=== PATIENT | male | born 1970 | race Caucasian/White ===

== ENCOUNTER 2023-02-05 12:47 | Outpatient (AMB) | payer OTHER, SELFPAY ==
--- NOTE | 2023-02-05 13:02 | MHC.PC.OV ---
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 Patient reports his last A1C was about 4 months ago. Patient confirms his last colonoscopy was in 2016 and his last prostate exam scheduled for 04/2023 and PSA was in 05/2022. 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 Sheri Grey Last office visit/CPE: 1 yr Acute issue(s): Diabetes -A1c today 02/05/23 is 7.6%. He is on Ozempic. -Sees Endocrinology [facility]. Sees him again in a couple months. -Has been on metformin/glipizide before. Has also trialed Trulicity - he notes he had the same amount of control with Trulicity. Quantitative Researcher had been prescribing him testosterone Had been on rosuvastatin before for his lipids. R knee pain & Hx of ACL tear in high school PMHx: HLD, DM2 SurgHx: R knee arthoscopy, GB FHx: Mom: Thyroid disorder Dad: CAD, HTN, DM, HLD. GF: Bladder CA SocHx: Nonsmoker. EtOH None. No other drugs PFSH Medical History (Updated 02/05/23 @ 13:45 by Hector Cameron) Arthritis Diabetes Palpitations Sinusitis Surgical History (Updated 02/05/23 @ 13:20 by Siri Norton) History of cholecystectomy History of knee surgery Family History (Updated 02/05/23 @ 13:25 by Siri Norton) Mother Hypertension Thyroid condition Father Hypertension High cholesterol Cardiovascular disease Maternal Grandmother Hypertension Paternal Grandmother Hypertension High cholesterol Cardiovascular disease Cancer Alcoholism Maternal Grandfather Hypertension Paternal Grandfather Hypertension High cholesterol Cardiovascular disease Social History Housing: House Alcohol intake: never Patient Tobacco Use Status: Never used Tobacco e-Cigarette/Vaping Use: Never Used service: No 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al status: employed 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: [employer] 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al exposures/hazards: Yes Cognitive needs: No Hearing needs: No Vision needs: No Questionnaire PHQ-9 Over the last 2 weeks, how often have you been bothered by any of the following problems? 1. Little interest or pleasure in doing things: not at all 2. Feeling down, depressed, or hopeless: not at all 3. Trouble falling or staying asleep, or sleeping too much: several days 4. Feeling tired or having little energy: not at all 5. Poor appetite or overeating: not at all 6. Feeling bad about yourself - or that you are a failure or have let yourself or your family down: not at all 7. Trouble concentrating on things, such as reading the newspaper or watching television: not at all 8. Moving or speaking so slowly that other people could have noticed. Or the opposite - being so fidgety or restless that you have been moving around a lot more than usual: not at all 9. Thoughts that you would be better off or of hurting yourself in some way: not at all Total score: 1 Depression Screening Interpretation: Negative 32776 - PHQ-9 Billing: Yes Source: Developed by Drs. Nain Euceda, Valencia Perez, Joao Vogt and colleagues, with an educational bridger from [employer]. Thrive Questionnaire Date Thrive assessed: 02/05/23 I am a: Patient What is your living situation today?: I have a steady place to live Within the past 12 months, did the food you bought not last and you didn't have the money to get more?: Never true Within the past 12 months, did you worry whether your food would run out before you got money to buy more?: Never true Do you have trouble paying for medicines?: No Do you have trouble getting transportation to medical appointments?: No Do you have trouble paying your heating and electricity bill?: No Do you have trouble taking care of your child, family member or friend?: No Do you have trouble with day-to-day activities such as bathing, preparing meals, shopping, managing finances, etc.?: No Are you currently unemployed and looking for a job?: No Are you interested in more education?: No Currently or been in a relationship where the following occur: no concerns reported AUDIT C Alcohol Use Questionnaire (AUDIT-C) 1. How often do you have a drink containing alcohol?: Never 3. How often do you have six or more drinks on one occasion?: Never Total Score: 0 IVY-7 AMB Questionnaire IVY-7 Date IVY - 7 assessed: 02/05/23 Feeling nervous, anxious, or on edge: 0 = Not at all Not being able to stop or control worryin = Not at all Worrying too much about different things: 0 = Not at all Trouble relaxin = Not at all Being so restless that it is hard to sit still: 0 = Not at all Becoming easily annoyed or irritable: 0 = Not at all Feeling afraid as if something awful might happen: 0 = Not at all Total IVY-7 score (0-4 normal; 5-9 mild; 10-14 moderate; 15-21 severe): 0 Source: Developed by Drs. Nain Euceda, Valencia Perez, Joao Vogt and colleagues, with an educational bridger from [employer]. IVY-7 Assessment Billing IVY-7 Assessment Tool: IVY-7 Assessment 38524 Review of Systems Const Denies chills, Denies fatigue, Denies fever(s), Denies headache(s) and Denies weakness ENT Denies dizziness and Denies headache(s) Card Denies chest pain, Denies lightheadedness, Denies dyspnea and Denies other (Palpitations) Resp Denies cough, Denies dyspnea, Denies wheezing and Denies other ( shortness of breath) Musc Details: R knee pain Denies numbness and Denies tingling Neuro Denies dizziness, Denies headache(s), Denies numbness, Denies tingling, Denies paresthesias and Denies weakness Psych Denies anxiety and Denies depression Endo Denies fatigue Aller/Immun Denies wheezing Physical exam (Primary Care) Vital Signs: Last Vital Signs Temp 97.8 F 02/05/23 13:03 Pulse 65 02/05/23 13:03 Resp 15 02/05/23 13:03 BP 102/60 02/05/23 13:03 Pulse Ox 98 02/05/23 13:03 Oxygen Delivery Method Room Air 02/05/23 13:03 BMI result Body Mass Index 31.7 Tobacco/Smoking Status: Tobacco use Status Tobacco use date assessed 02/05/23 02/05/23 13:13 Patient Tobacco Use Status Never used Tobacco 02/05/23 13:26 e-Cigarette/Vaping Use Never Used 02/05/23 13:26 PHQ-9: PHQ-9 Score PHQ-9: Total score 1 02/05/23 13:28 Depression Screening Interpretation: Negative Thrive Assessment: Date of Thrive Assessment Date Thrive assessed 02/05/23 02/05/23 13:14 Currently or been in a relationship where the following occur: no concerns reported Const General: no acute distress and well developed Nutritional Appearance: well nourished Orientation/consciousness: patient oriented x3 HENMT Head: Yes normocephalic and Yes atraumatic Eyes General: appearance normal, both eyes and all related structures Pupils: Equal, round and reactive pupils present EOM: EOMs intact bilaterally Resp Effort & Inspection: normal respiratory effort Auscultation: clear to auscultation bilaterally Cardio Rate: regular rate Rhythm: regular rhythm Heart sounds: S1 normal heart sound present, S2 normal heart sound present, no gallops, no murmurs and no rubs Neuro General: patient oriented x3 and gait normal Cranial nerves: Yes Equal, round and reactive pupils present Psych Affect: normal affect Results AMB Hemoglobin A1c AMB Hemoglobin A1c 7.6 % Last Edit by Siri Norton on 02/05/23 13:24 Results Reviewed Results Reviewed: Laboratory Last Values Hgb A1c (Clinic) 7.6 % (4.0-6.0) H 02/05/23 13:23 Assessment and Plan Assessment & Plan (1) Diabetes: Code(s): E11.9 - Type 2 diabetes mellitus without complications Plan: A1c today 7.6% which is poor control. Goal is less than 7.0%. He seems to have sensitivity to many medications. Has tolerated glipizide in the past. He is followed by endocrinology and has an appointment in the next couple of months. Will restart glipizide ER at 5 mg daily and he will continue Ozempic as prescribed by his rayon tester. He can follow-up with endocrinology to adjust his regimen as needed. (2) Low testosterone: Code(s): R79.89 - Other specified abnormal findings of blood chemistry Plan: He is on testosterone replacement therapy by endocrinology Check testosterone level (3) Right knee pain: Code(s): M25.561 - Pain in right knee Plan: Right knee pain which is likely mild tendinopathy. He can use ibuprofen, ice/heat and relative rest If not improving will image and start physical therapy (4) Laboratory exam ordered as part of routine general medical examination: Code(s): Z00.00 - Encounter for general adult medical examination without abnormal findings Plan: Check labs Orders: Orders Comprehensive [place]. Panel Fast Today Z00.00 - Encounter for general adult medical examination without abnormal findings Microalbumin, Random (w Creat) Today I10 - Essential (primary) hypertension Prostate Specific Antigen Scr Today Z12.5 - Encounter for screening for malignant neoplasm of prostate Lipid Panel Today Z00.00 - Encounter for general adult medical examination without abnormal findings TSH reflex Free T4 Today Z00.00 - Encounter for general adult medical examination without abnormal findings UA and rflx microscopic Today Z00.00 - Encounter for general adult medical examination without abnormal findings Medications: New glipizide ER 5 mg PO DAILY 30 days 30 tabs 2RF testosterone cypionate 50 mg (0.5 mL) IM QWEEK 28 days 2 mL 0RF Coding Level of Care Code New Pt Level 4 (34209) Diagnoses Diabetes E11.9 Low testosterone R79.89 Right knee pain M25.561 Laboratory exam ordered as part of routine general medical examination Z00.00 Additional Codes IYV-7 Assessment Billing - IVY-7 Assessment Tool: IVY-7 Assessment 65639 ([id number])
[2023-02-05 13:03] VITALS: BP 102/60; PULSE 65; RESP 15; TEMP 36.6; O2SAT 98; BMI 31.7
== END 2023-02-05 13:54 | disposition home or self-care (01) ==
PROVIDERS: Visit Provider Family Medicine
DX: E11.9 Type 2 diabetes mellitus without complications (principal); R79.89 Other specified abnormal findings of blood chemistry; M25.561 Pain in right knee; Z00.00 Encounter for general adult medical examination without abnormal findings
CPT/HCPCS: 99204

== ENCOUNTER 2023-02-19 09:15 | Outpatient (REF) | payer OTHER, SELFPAY ==
[2023-02-19 11:13] LABS: MANUAL DIFF FLAG NO
[2023-02-19 11:30] LABS: Appearance Urine Clear; Color Urine Yellow; Glucose Urine UA Negative (Negative); Leukocyte Esterase Urine Negative (Negative); Nitrite Urine Negative (Negative); Specific Gravity - Urine <= 1.005 (1.005-1.025); Urine Blood Negative (Negative); Urine Ketones Negative (Negative); Urine Protein Negative (Neg-Trace)
[2023-02-19 11:35] LABS: Basophils Absolute Auto 0.1 X10*3/uL (0.0-0.2); Basophils Percent Auto 1.5 % (0-2); Eosinophils Absolute Auto 0.2 X10*3/uL (0.0-0.4); Eosinophils Percent Auto 2.7 % (0-4); Hematocrit 50.2 % (42.0-52.0); Hemoglobin 16.5 g/dl (14.0-18.0); Imm Gran Abs Auto 0.02 X10*3/uL (0.00-0.03); Imm Gran Pct Auto 0.3 % (0.0-0.4); Lymphocytes Percent Auto 25.5 % (20-40); Mean Corpuscular HGB Conc 32.9 g/dl (31.0-36.0); Mean Corpuscular Hemoglobin 28.2 pg (27.0-33.0); Mean Corpuscular Volume 85.8 fL (80.0-98.0); Mean Platelet Volume 11.4 fL (9.4-12.4); Monocytes Absolute Auto 0.7 X10*3/uL (0.1-1.2); Monocytes Percent Auto 8.5 % (2-11); Neutrophils Absolute Auto 4.9 x10*3/uL (2.0-8.3); Neutrophils Percent Auto 61.5 % (45-73); Platelet Count 245 X10*3/uL (160-400); Red Blood Count 5.85 X10*6/uL (4.60-5.80); Red Cell Distribution Width 13.4 % (11.0-16.0); White Blood Count 7.9 X10*3/uL (4.8-10.8)
[2023-02-19 12:07] LABS: Creatinine Urine 31.39 mg/dL; Microalbumin Urine < 5.0 mg/L
[2023-02-19 12:22] LABS: Alanine Aminotransferase 23 U/L (0-40); Alkaline Phosphatase 88 U/L (39-117); Anion Gap 10 (12-20); Aspartate Amino Transferase 19 U/L (5-37); Bilirubin Total 0.5 mg/dL (0.0-1.0); Blood Urea Nitrogen 19 mg/dL (9-16); Calcium 8.7 mg/dL (8.4-10.2); Carbon Dioxide 27 mmol/L (22-29); Chloride 107 mmol/L (96-108); Cholesterol 141 mg/dL (<200); Estimated Glomerular Filt Rate > 60; Glucose Fasting 131 mg/dL (60-99); HDL Cholesterol 44 mg/dL (>40); LDL Cholesterol Calculated 87 mg/dL (<100); Sodium 140 mmol/L (135-145); TSH reflex Free T4 1.25 uIU/mL (0.32-4.0); Total Protein 6.7 g/dL (6.5-8.0); Triglycerides 52 mg/dL (<150)
[2023-02-19 12:25] LABS: Prostate Specific Antigen Scr 0.63 ng/mL (<0.05-4.0)
[2023-02-24 13:54] LABS: Testosterone, Free 93.2 pg/mL (35.0-155.0); Testosterone, Total 483 ng/dL (250-1100)
== END 2023-02-19 09:16 | disposition home or self-care (01) ==
LOC: HO.WFDLDS 09:15
PROVIDERS: Visit Provider Family Medicine
DX: Z00.00 Encounter for general adult medical examination without abnormal findings (principal); I10 Essential (primary) hypertension; R79.89 Other specified abnormal findings of blood chemistry; Z12.5 Encounter for screening for malignant neoplasm of prostate
CPT/HCPCS: 36415; 80053; 80061; 81003; 82043; 82570; 84153; 84402; 84403; 84443; 85025

== ENCOUNTER 2023-02-25 13:36 | Outpatient (REF) | payer OTHER, SELFPAY ==
--- NOTE | ~2023-02-25 | XR_ITS ---
EXAMINATION: XR KNEE, RIGHT CLINICAL INFORMATION: Pain. COMPARISON: None available. TECHNIQUE: AP, lateral and sunrise views of the right knee are submitted. FINDINGS: No fracture or joint effusion. Alignment is anatomic. Joint spaces are maintained. No abnormal soft tissue calcification. XR/XR knee RT 3V IMPRESSION: Normal right knee.
== END 2023-02-25 13:37 | disposition home or self-care (01) ==
LOC: HO.HOSX 13:36
PROVIDERS: Visit Provider Orthopaedic Surgery
DX: M25.561 Pain in right knee (principal)
CPT/HCPCS: 20610; 73562; J3301

== ENCOUNTER 2023-02-25 13:37 | Outpatient (AMB) | payer OTHER, SELFPAY ==
--- NOTE | 2023-02-25 13:59 | MHC.OFFVIS ---
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 Pt states he has had knee pain for a while but states within the past 2 weeks it has gotten worse. Pt states he has tried ice,heat,ibuprofen,and tylenol with some relief. Pt states the ice is most helpful. Pt states he had a partial tear of his ACL and had surgery in 1985 but was told that it already healed itself prior to the surgery. Pt denies any previous knee injections. Patient states that his right knee will give out several times per day. He has done physical therapy which aggravated his pain. Allergies No Known Allergies Allergy (Verified 02/25/23 14:01) [facility] Medical History Arthritis Diabetes Palpitations Sinusitis Surgical History History of cholecystectomy History of knee surgery Family History Mother Hypertension Thyroid condition Father Hypertension High cholesterol Cardiovascular disease Maternal Grandmother Hypertension Paternal Grandmother Hypertension High cholesterol Cardiovascular disease Cancer Alcoholism Maternal Grandfather Hypertension Paternal Grandfather Hypertension High cholesterol Cardiovascular disease Social History Housing: House Alcohol intake: never Patient Tobacco Use Status: Never used Tobacco e-Cigarette/Vaping Use: Never Used service: No 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al status: employed 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: [employer] 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al exposures/hazards: Yes Cognitive needs: No Hearing needs: No Vision needs: No Physical Exam Const Other: Well-nourished well-developed very friendly male awake alert and oriented x3 in no acute distress Extrem Other: Bilateral lower extremity examination shows good capillary refill, no skin lesions noted, normal sensation light touch Right knee examination shows a minimal effusion, mild crepitus with range of motion, tenderness along his medial joint line, positive Enedina's test, no instability Office Procedures Joint Injection/Drain Joint Injection/Drain Primary Site: right knee Prep: site was prepped using aseptic technique Injected: 40 mg of, Kenalog and 1% plain lidocaine Procedure: The patient tolerated the procedure well Coding 65139 - Large joint Procedure code (CPT) selection complete Results Reviewed Results Reviewed: 02/25/23 14:18 Lidocaine HCl 2 % MPF [Xylocaine 2 % MPF] 5 ml .ROUTE .STK-MED ONE 02/25/23 14:19 Triamcinolone Acetonide [Kenalog-40] 40 mg .ROUTE .STK-MED ONE X-rays of the patient's right knee show mild diffuse joint space narrowing, no acute bony abnormalities Assessment & Plan Assessment & Plan (1) Right knee pain: Code(s): M25.561 - Pain in right knee Plan: Mr. Perez presents with right knee pain and mechanical symptoms due to early degenerative joint disease as well as possible tearing of his medial meniscus. I had a lengthy discussion with the patient regarding the treatment options. The risks and benefits of a cortisone injection were discussed at length with the patient. The patient wished to proceed. He tolerated the injection well. Activity modifications were also discussed at length with the patient. I will also send the patient for an MRI of his right knee to further evaluate the status of his medial meniscus. I will see him back once the MRI is completed to discuss the findings and treatment options. Feel free to call me at any time should questions regarding his orthopedic management arise. Thank you very much for asking me to see this very friendly gentleman. I spent 22 minutes in reviewing the patient's records and imaging studies, seeing the patient and documenting in the medical record. Orders: Orders MR knee RT wo con Today S83.241A - Other tear of medial meniscus, current injury, right knee, initial encounter AMB Joint Injection/Aspiration Today M25.561 - Pain in right knee XR knee RT 3V Today M25.561 - Pain in right knee Coding Level of Care Code Est Pt Level 2 (36584) Diagnoses Right knee pain M25.561 CPT Codes Coding - 03177 Large joint: 72760 - Large joint ([id number])
== END 2023-02-25 14:31 | disposition home or self-care (01) ==
PROVIDERS: PCP Family Medicine; Visit Provider Orthopaedic Surgery
DX: M25.561 Pain in right knee (principal)
CPT/HCPCS: 20610; 99213

== ENCOUNTER 2023-04-21 14:12 | Outpatient (AMB) | payer OTHER, SELFPAY ==
--- NOTE | 2023-04-21 14:16 | MHC.OFFVIS ---
Intake Intake Visit Reasons: Pre-Rt Knee Intake Note: Benji is a 52-year-old male who presents with complaints of progressively worsening right knee pain and giving way. The patient describes his pain as sharp in nature. Most of the pain is along the medial aspect of his knee. The patient states that he underwent right knee surgery in 1985 after suffering a partial tear of his anterior cruciate ligament. The patient re-injured his knee approximately 1 year ago. He twisted his knee and had acute onset of pain. Since that time his symptoms of pain and instability have gotten progressively worse in spite of continued non operative treatments. He has had injections in the past which gave him minimal relief. He has also done physical therapy which aggravated his pain. The patient states that his right knee will give out several times per day. He has tried Tylenol and anti-inflammatory medicines which gave him minimal relief. Allergies No Known Allergies Allergy (Verified 04/21/23 14:17) Medication List - Last Reconciled 04/21/23 by Zia Haynes MD fluticasone propionate 50 mcg/actuation (Flonase Allergy Relief) 2 sprays intranasal QDAY glipizide ER 5 mg PO DAILY 30 days needle (disp) 25 gauge (BD PrecisionGlide) As directed semaglutide (Ozempic) mg subcut tamsulosin 0.4 mg PO DAILY testosterone cypionate 50 mg (0.5 mL) IM QWEEK 28 days [facility] Medical History Arthritis Diabetes Palpitations Sinusitis Surgical History History of cholecystectomy History of knee surgery Family History Mother Hypertension Thyroid condition Father Hypertension High cholesterol Cardiovascular disease Maternal Grandmother Hypertension Paternal Grandmother Hypertension High cholesterol Cardiovascular disease Cancer Alcoholism Maternal Grandfather Hypertension Paternal Grandfather Hypertension High cholesterol Cardiovascular disease Housing: House Alcohol intake: never Patient Tobacco Use Status: Never used Tobacco e-Cigarette/Vaping Use: Never Used service: No 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al status: employed 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: [employer] 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al exposures/hazards: Yes Cognitive needs: No Hearing needs: No Vision needs: No Physical Exam Const Other: Well-nourished well-developed very friendly male awake alert and oriented x3 in no acute distress Lungs - clear to auscultation bilaterally with symmetric expansion Cardiovascular exam - regular rate and rhythm Abdominal exam - soft nontender nondistended Extrem Other: Bilateral lower extremity examination shows good capillary refill, no skin lesions noted, normal sensation light touch Right knee examination shows a minimal effusion, minimal crepitus with range of motion, tenderness along his medial joint line, positive Enedina's test, no instability Results Reviewed Results Reviewed: Standing full weight-bearing x-rays of the patient's right knee show grade 1 minimal diffuse joint space narrowing, no acute bony abnormalities MRI of the patient's right knee shows mild diffuse degenerative changes as well as a tear of his medial meniscus and possible tearing of the lateral meniscus Assessment & Plan Assessment & Plan (1) Tear of medial meniscus of right knee: Code(s): S83.241A - Other tear of medial meniscus, current injury, right knee, initial encounter Plan Mr. Perez presents with progressively worsening right knee pain and mechanical symptoms due to a tear of his medial meniscus and possible tearing of his lateral meniscus. I had a lengthy discussion with the patient regarding the treatment options. At this point he has failed continued non operative treatments. The risks and benefits of right knee arthroscopic surgery were discussed at length with the patient. The patient wishes to proceed with surgery. He does understand he may not get 100% relief of his symptoms depending on the severity of his degenerative changes. The patient was given a prescription for Percocet at his preoperative appointment. I also had him fitted with a knee brace to help with his symptoms of instability. I feel that the knee brace is a medical necessity to help prevent future falls. The patient will follow-up as instructed. Feel free to call me at any time should questions regarding his orthopedic management arise. I spent 22 minutes in reviewing the patient's records and imaging studies, seeing the patient and documenting in the medical record. Medications: New oxycodone-acetaminophen 5-325 mg (Percocet) Partial Fill upon patient request. 1 tab PO Q6H PRN 20 tabs 0RF pain Coding Level of Care Code Est Pt Level 2 (35377) Diagnoses Tear of medial meniscus of right knee S83.241A
== END 2023-04-21 14:48 | disposition home or self-care (01) ==
PROVIDERS: PCP Family Medicine; Visit Provider Orthopaedic Surgery
DX: S83.241A Other tear of medial meniscus, current injury, right knee, initial encounter (principal)
CPT/HCPCS: 99212

== ENCOUNTER → 2023-04-21 14:12 | Outpatient (BNVA) | payer OTHER, SELFPAY | PROVIDERS: PCP Family Medicine; Visit Provider Orthopaedic Surgery ==

== ENCOUNTER 2023-04-30 07:54 | Day surgery (SDC) | payer OTHER, SELFPAY ==
[2023-04-28 07:53] VITALS: BMI 31.7
--- NOTE | 2023-04-29 09:04 | HO.ANESPROP2 ---
Documented by User: Marah Walls NP 04/29/23 09:05 HPI - Anesthesia Eval Consult details Narrative: 52yo M for Knee Arthroscopy Anesthesia Pre-Procedure Meds Is the patient on any of the following meds?: Semaglutide (Ozempic) PMFSH Active Problems Active Problems: All Active Problems (Updated 02/25/23 @ 14:34 by Zia Haynes MD) Tear of medial meniscus of right knee (Acute) Right knee pain (Acute) Low testosterone (Acute) Laboratory exam ordered as part of routine general medical examination (Acute) Diabetes (Acute) Past Medical History Medical History (Updated 04/30/23 @ 08:15 by Megan Bill) Arthritis Diabetes Palpitations Sinusitis Family History Family History Mother Hypertension Thyroid condition Father Hypertension High cholesterol Cardiovascular disease Maternal Grandmother Hypertension Paternal Grandmother Hypertension High cholesterol Cardiovascular disease Cancer Alcoholism Maternal Grandfather Hypertension Paternal Grandfather Hypertension High cholesterol Cardiovascular disease Surgical History Surgical History (Updated 04/30/23 @ 08:15 by Megan Bill) History of cholecystectomy History of knee surgery Social History Social History Housing: House Alcohol intake: never Patient Tobacco Use Status: Never used Tobacco e-Cigarette/Vaping Use: Never Used Advance Directives: No Advance Directives Information Provided: Yes service: No 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al status: employed 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: [employer] 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al exposures/hazards: Yes Cognitive needs: No Hearing needs: No Vision needs: No Meds Allergies Allergy/AdvReac Type Severity Reaction Status Date / Time No Known Allergies Allergy Verified 04/30/23 08:16 Active Medications: Current Medications Cefazolin Sodium/Dextrose (Ancef) 2 gm in 50 mls @ 100 mls/hr IV PREOP ONE Stop: 04/30/23 05:19 Home Medications Medication Instructions Recorded Confirmed Last Taken Type fluticasone propionate 50 2 spray intranasal QDAY 02/05/23 04/21/23 Unknown History mcg/actuation nasal spray,suspension (Flonase Allergy Relief) needle (disp) 25 gauge 25 gauge x #1,000 ea 02/05/23 04/21/23 Unknown History 1 (BD PrecisionGlide) semaglutide 0.25 mg or 0.5 mg (2 mg subcut 02/05/23 04/21/23 Unknown History mg/3 mL) subcutaneous pen injector (Ozempic) tamsulosin 0.4 mg capsule 0.4 mg PO DAILY 02/05/23 04/21/23 Unknown History Maegan 04/30/23 Unknown History Pepcid 04/30/23 04/30/23 Unknown History Exam Height,Weight and Vital Signs: Height 5 ft 11 in Weight 102.965 kg Pertinent Lab Results Pertinent Lab Results: Laboratory Tests 02/19/23 09:18 WBC 7.9 Hgb 16.5 Hct 50.2 Plt Count 245 Sodium 140 Potassium 4.0 Chloride 107 Carbon Dioxide 27 BUN 19 H Creatinine 1.00 Assessment and Plan Assessment Anesthesia Assessment: Chart Reviewed Documented by User: Taj Raya MD 04/30/23 08:18 HPI - Anesthesia Eval Anesthesia Pre-Procedure Meds If Yes to any meds - educate patient: Pt education - possibility of cancelled proc at provider's discretion PMFSH Past Medical History Medical History (Updated 04/30/23 @ 08:15 by Megan Bill) Arthritis Diabetes Palpitations Sinusitis Family History Family History Mother Hypertension Thyroid condition Father Hypertension High cholesterol Cardiovascular disease Maternal Grandmother Hypertension Paternal Grandmother Hypertension High cholesterol Cardiovascular disease Cancer Alcoholism Maternal Grandfather Hypertension Paternal Grandfather Hypertension High cholesterol Cardiovascular disease Family history of problems with anesthesia: No Surgical History Surgical History (Updated 04/30/23 @ 08:15 by Megan Bill) History of cholecystectomy History of knee surgery History of Problems with Anesthesia: No Social History Social History Housing: House Alcohol intake: never Patient Tobacco Use Status: Never used Tobacco e-Cigarette/Vaping Use: Never Used Advance Directives: No Advance Directives Information Provided: Yes service: No 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al status: employed 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: [employer] 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al exposures/hazards: Yes Cognitive needs: No Hearing needs: No Vision needs: No Meds Allergies Allergy/AdvReac Type Severity Reaction Status Date / Time No Known Allergies Allergy Verified 04/30/23 08:16 Home Medications Medication Instructions Recorded Confirmed Last Taken Type fluticasone propionate 50 2 spray intranasal QDAY 02/05/23 04/21/23 Unknown History mcg/actuation nasal spray,suspension (Flonase Allergy Relief) needle (disp) 25 gauge 25 gauge x #1,000 ea 02/05/23 04/21/23 Unknown History 1 (BD PrecisionGlide) semaglutide 0.25 mg or 0.5 mg (2 mg subcut 02/05/23 04/21/23 Unknown History mg/3 mL) subcutaneous pen injector (Ozempic) tamsulosin 0.4 mg capsule 0.4 mg PO DAILY 02/05/23 04/21/23 Unknown History Maegan 04/30/23 Unknown History Pepcid 04/30/23 04/30/23 Unknown History Exam Airway Mallampati Class: II TM Dist: >3cm Neck ROM: Limited Heart: rrr Lungs: cta Assessment and Plan Assessment Anesthesia Assessment: Anesthesia Plan Discussed Final Anesthetic Review Family History of Problems with Anesthesia: No History of Problems with Anesthesia: No NPO: Yes ASA Class: III Final Preanesthetic Review: No Changes in Pt Med Stat, Meds/Allgs Chart Reviewed, Consent Obtained/Reviewed and Anes Risks/Benef Reviewed Patient Risk: Intermediate Procedure Risk: Intermediate Anesthetic Plan Anesthetic Plan: GA Disposition: Standard PACU
[2023-04-30] VITALS (9 sets, daily range): BP systolic 97–118; BP diastolic 63–88; PULSE 68–86; RESP 16–18; TEMP 36.2–36.9; O2SAT 94–97; BMI 32.6
[2023-04-30 08:29] LABS: Glucose, Whole Blood 182 mg/dL (60-115)
[2023-04-30] MEDS: Lactated Ringers 1,000 ML 100 ML IVCONT (08:51)
--- NOTE | 2023-04-30 10:28 | P.BOP_ITS ---
Brief Operative Note Date of Service: 04/30/23 Pre-op diagnosis: Left knee medial meniscus tear, left knee lateral meniscus tear, left knee degenerative joint disease Post-op diagnosis: same Procedure: Left knee diagnostic arthroscopy with left knee arthroscopic partial medial and lateral meniscectomies, left knee arthroscopic chondroplasty of the undersurface of the patella, left knee arthroscopic plica excision Implants: none Surgeon: Zia Haynes MD Anesthesia: GLMA Was an Opinion Polls Survey Worker used for this Procedure?: No Estimated blood loss (mL): 10 Pathology: none sent Condition: stable Disposition: PACU
--- NOTE | 2023-04-30 10:30 | P.OP_ITS ---
Operative Note Operative Note Date of Service: 04/30/23 Narrative: After the patient was identified as Benji Perez and their right knee was initialed by myself they were brought to the operating room where general anesthesia was induced by the anesthesiologist in routine fashion. The patient was given 2 g of IV Ancef for infection prophylaxis. A formal time-out was completed. The patient's right lower extremity was prepped and draped in sterile fashion. Marcaine with epinephrine was injected into the planned incision sites as well as their left knee joint. A # 11 scalpel blade was used to make an anterolateral portal 1 cm proximal to the joint line and 1 cm lateral to the patellar tendon. Blunt trocar technique was used into the suprapatellar pouch with the knee in extension. Diagnostic arthroscopy showed multiple bands of thickened plica which would be excised at the end of the procedure. There were no loose bodies or abnormalities found in either the medial or lateral gutters. There were diffuse grades 1 and 2 degenerative changes of the undersurface of the patella as well as grade 1 degenerative changes of the trochlear groove. The patient's knee was flexed to 45 degrees and a valgus force was placed upon it. The medial compartment was entered. An anteromedial portal was made 1 cm proximal to the joint line and 1 cm medial to the patellar tendon. Probing of the medial meniscus showed a radial tear of the anterior horn. A partial medial meniscectomy was performed using the arthroscopic shaver. Following the partial meniscectomy the remainder of the meniscus tissue was stable. There were diffuse grade 1 degenerative changes of the medial fe moral condyle as well as diffuse grade 1 degenerative changes of the medial tibial plateau. The patient's knee was then placed into a neutral position. There was no injury to the anterior cruciate ligament. The patient's knee was then placed into the figure of 4 position and the lateral compartment was entered. There were minimal degenerative changes of the lateral femoral condyle and lateral tibial plateau. There was a radial tear anterior horn lateral meniscus. Thus, a partial lateral meniscectomy was performed using the arthroscopic shaver. Following the partial meniscectomy the remainder of the meniscus tissue was stable. The patient's knee was once again brought into extension and the suprapatellar pouch was entered. The arthroscopic shaver and the ArthroCare Wand were used to excise the thickened bands of plica. The undersurface of the patella was then made smooth using the arthroscopic shaver. The articular surface of the trochlear groove was already smooth so no vidhi droplasty was indicated. The knee joint was irrigated and then drained. All arthroscopic instruments were removed. The 2 portals were closed with 3-0 nylon interrupted suture. The knee joint was injected with Marcaine. Dry sterile dressing and Dusty bandages were placed over the patient's knee. The patient was woken and expand the operating room. They were transferred to the recovery room in stable condition.
[2023-04-30] MEDS: cefTRIAXone sodium 1 GM in 0.9 % Sodium Chloride 50 ML IV (10:52)
== END 2023-04-30 12:10 | disposition home or self-care (01) ==
PROVIDERS: PCP Family Medicine; Visit Provider Orthopaedic Surgery
PROC: (CPT 29870; principal; 2023-04-30 09:40)
DX: S83.241A Other tear of medial meniscus, current injury, right knee, initial encounter (principal); S83.281A Other tear of lateral meniscus, current injury, right knee, initial encounter; M25.361 Other instability, right knee; M67.51 Plica syndrome, right knee; M17.11 Unilateral primary osteoarthritis, right knee; X50.1XXA Overexertion from prolonged static or awkward postures, initial encounter; Y93.9 Activity, unspecified; Y92.9 Unspecified place or not applicable; Y99.8 Other external cause status; E11.9 Type 2 diabetes mellitus without complications; R00.2 Palpitations; J32.9 Chronic sinusitis, unspecified; Z79.51 Long term (current) use of inhaled steroids; Z79.84 Long term (current) use of oral hypoglycemic drugs; Z79.85 Long-term (current) use of injectable non-insulin antidiabetic drugs; Z79.899 Other long term (current) drug therapy
CPT/HCPCS: 29880; 82947; J0131; J0171; J0690; J0696; J2704; J2795

== ENCOUNTER → 2023-04-30 07:54 | Outpatient (BNV) | payer OTHER, SELFPAY | PROVIDERS: PCP Family Medicine; Visit Provider Orthopaedic Surgery | DX: S83.232A Complex tear of medial meniscus, current injury, left knee, initial encounter (principal); S83.272A Complex tear of lateral meniscus, current injury, left knee, initial encounter | CPT/HCPCS: 29880 ==

== ENCOUNTER 2023-05-14 08:53 | Outpatient (AMB) | payer OTHER, SELFPAY ==
--- NOTE | 2023-05-14 08:54 | A.OFFPC_ITS ---
Vital Signs 05/14/23 08:55 Height 5 ft 11 in Weight 234 lb 6 oz BMI 32.7 BP 118/76 Blood Pressure Location Rt brachial Position Sitting Respiration 13 Pulse 77 Temp 97.6 F Temp Source Temporal Artery Scan Pulse Oximetry (%) 97 Oxygen Delivery Method Room Air Intake Visit Reasons: CPE with f/u labs and health maint. Pegger Required: No Accompanied by: Self / Same As Patient Allergies No Known Allergies Allergy (Verified 05/14/23 09:00) Tobacco use date assessed: 02/05/23 Dental Screening Dental Screen Date: 05/14/23 Did you have a dental visit in the last 12 months?: Yes Did you have a dental problem in the last 6 months where you did not have access to dental care?: No Was dental information given to patient?: Patient has dentist HPI CPE with f/u labs and health maint. HPI Details 52 y/o male presents for a CPE with f/u labs and health maintenance. Labs were drawn 02/19/23. Reviewed labs with pt. Last A1c 02/05/23 7.6%. He is on semaglutide and glipizide 5mg. Triglycerides 52. TC 141. LDL 87. HDL 44. He notes he had an A1c done at [email or web address] a month ago and was 7.1%. He is followed by Endocrinology for his diabetes. [facility] Medical History Arthritis Diabetes Palpitations Sinusitis Surgical History History of cholecystectomy History of knee surgery Family History Mother Hypertension Thyroid condition Father Hypertension High cholesterol Cardiovascular disease Maternal Grandmother Hypertension Paternal Grandmother Hypertension High cholesterol Cardiovascular disease Cancer Alcoholism Maternal Grandfather Hypertension Paternal Grandfather Hypertension High cholesterol Cardiovascular disease Social History Housing: House Alcohol intake: never Patient Tobacco Use Status: Never used Tobacco e-Cigarette/Vaping Use: Never Used service: No 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al status: employed 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: [employer] 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al exposures/hazards: Yes Cognitive needs: No Hearing needs: No Vision needs: No Questionnaire Thrive Questionnaire Date Thrive assessed: 02/05/23 IVY-7 AMB Questionnaire IVY-7 Date IVY - 7 assessed: 02/05/23 Source: Developed by Drs. Nain Euceda, Valencia Perez, Joao Vogt and colleagues, with an educational bridger from [employer]. Review of Systems Const Denies chills, Denies fatigue, Denies fever(s), Denies headache(s) and Denies weakness Eyes Denies change in vision ENT Denies dizziness, Denies headache(s), Denies hearing loss, Denies nasal congestion, Denies sinus pain, Denies sinus pressure and Denies sore throat Card Denies chest pain, Denies lightheadedness, Denies dyspnea and Denies other (palpitations) Resp Denies cough, Denies dyspnea and Denies wheezing GI Denies abdominal pain, Denies melena, Denies hematochezia, Denies change in bowel habits, Denies dyspepsia and Denies nausea Denies hematuria and Denies dysuria Musc Denies abnormal gait, Denies myalgias, Denies arthralgias, Denies numbness and Denies tingling Skin/Breast Denies rash, Denies unusual bruising and Denies wounds Neuro Denies abnormal gait, Denies dizziness, Denies headache(s), Denies memory loss, Denies numbness, Denies Sensory deficit (Neuro), Denies tingling and Denies weakness Psych Denies anxiety, Denies depression and Denies memory loss Endo Denies cold intolerance, Denies fatigue, Denies heat intolerance, Denies polydipsia and Denies polyuria Abhijeet/Lymph Denies easy bleeding and Denies easy bruising Aller/Immun Denies wheezing Physical exam (Primary Care) Vital Signs: Last Vital Signs Temp 97.6 F 05/14/23 08:55 Pulse 77 05/14/23 08:55 Resp 13 05/14/23 08:55 BP 118/76 05/14/23 08:55 Pulse Ox 97 05/14/23 08:55 Oxygen Delivery Method Room Air 05/14/23 08:55 BMI result Body Mass Index 32.7 Tobacco/Smoking Status: Tobacco use Status Tobacco use date assessed 02/05/23 05/14/23 09:02 Patient Tobacco Use Status Never used Tobacco 05/14/23 09:02 e-Cigarette/Vaping Use Never Used 05/14/23 09:02 Thrive Assessment: Date of Thrive Assessment Date Thrive assessed 02/05/23 05/14/23 09:02 Const General: no acute distress, well developed, alert and awake Nutritional Appearance: well nourished Orientation/consciousness: patient oriented x3 HENMT Head: Yes normocephalic and Yes atraumatic Ears: hearing grossly normal bilaterally and TM's normal bilaterally General nose exam: Normal external nose present and Normal nares present Mouth: Normal oral and palatal mucosa present and moist mucous membranes Teeth and gingiva: dentition normal Throat: Yes posterior oropharynx normal Eyes General: appearance normal, both eyes and all related structures Pupils: Equal, round and reactive pupils present and Pupil accommodation reflex normal EOM: EOMs intact bilaterally Neck Neck: Yes normal visual inspection, Yes no lymphadenopathy and Yes trachea midline Thyroid: Thyroid normal Carotids: no bruits Lymphatic: no lymphadenopathy noted Chest Chest palpation & inspection: normal inspection of the chest Resp Effort & Inspection: normal respiratory effort Auscultation: clear to auscultation bilaterally Cardio Rate: regular rate Rhythm: regular rhythm Heart sounds: S1 normal heart sound present, S2 normal heart sound present, no gallops, no murmurs and no rubs Bruits: no abdominal aortic bruits and no carotid bruits GI Palpation (GI): No Abdominal aortic bruit present, Soft to palpation, nontender, No hepatosplenomegaly present and No Rebound tenderness present Auscultation: normal bowel sounds General: Yes no CVA tenderness Back/Spine/Pelvis Back: no CVA tenderness Cervical Spine: cervical ROM normal and No Cervical spine tenderness Thoracic/Lumbar Spine: thoraco-lumbar ROM normal, No pain with thoraco-lumbar ROM, No thoracic spinal tenderness and No lumbar spinal tenderness Skin Lesions: no lesions Rashes: no rashes Trauma: no lacerations or abrasions Wounds: no wounds Nails: normal Neuro General: patient oriented x3 Cranial nerves: Yes Equal, round and reactive pupils present Cognition (Neuro): normal cognition Gait exam (Neuro): Normal gait present Motor exam (neuro): 5/5 motor strength present throughout Sensory Exam: No Sensory deficit (Neuro) Deep tendon reflexes (DTR's): Right patellar reflex intensity grade: 2+ and Left patellar reflex intensity grade: 2+ Extrem General: Yes normal to inspection and No edema Psych Appearance: grossly normal Affect: normal affect Attitude: cooperative Thought process: Normal thought process present Assessment and Plan Assessment & Plan (1) Adult general medical exam: Code(s): Z00.00 - Encounter for general adult medical examination without abnormal findings Plan: 52-year-old?male?presents?for?complete?physical?exam Encouraged?healthy?diet?with?active?lifestyle?and?plenty?of?exercise (2) Diabetes: Code(s): E11.9 - Type 2 diabetes mellitus without complications Plan: A1c?much?improved?with?addition?of?glipizide?back?to?his?regimen.??A1c?was?7.1%? which?is?fair?control.??Goal?is?less?than?7.0% He?is?intolerant?of?many?diabetes?medications. He?will?continue?to?follow-up?with?his?electronic health records specialist?for?diabetes. (3) Screening for prostate cancer: Code(s): Z12.5 - Encounter for screening for malignant neoplasm of prostate Plan: PSA?was?within?normal?limits (4) Screening for colon cancer: Code(s): Z12.11 - Encounter for screening for malignant neoplasm of colon Plan: Patient?says?he?had?a?colonoscopy?about?7?years?ago? in[place]and?was?told?to?follow-up?in?10?years. Will?request?report Orders: Orders Lipid Panel 11 Months Z00.00 - Encounter for general adult medical examination without abnormal findings Microalbumin, Random (w Creat) 11 Months I10 - Essential (primary) hypertension UA and rflx microscopic 11 Months Z00.00 - Encounter for general adult medical examination without abnormal findings TSH reflex Free T4 11 Months Z00.00 - Encounter for general adult medical examination without abnormal findings Hemoglobin A1c 3 Months R73.01 - Impaired fasting glucose Hemoglobin A1c 6 Months R73.01 - Impaired fasting glucose Hemoglobin A1c 9 Months R73.01 - Impaired fasting glucose Comprehensive [place]. Panel Fast 11 Months Z00.00 - Encounter for general adult medical examination without abnormal findings Prostate Specific Antigen Scr 11 Months Z12.5 - Encounter for screening for malignant neoplasm of prostate Hemoglobin A1c Today R73.01 - Impaired fasting glucose Coding Level of Care Code Est Pt Level 3 (59262) Est Pt Prev Care 40-64y(41723) Diagnoses Adult general medical exam Z00.00 Diabetes E11.9 Screening for prostate cancer Z12.5 Screening for colon cancer Z12.11
[2023-05-14 08:55] VITALS: BP 118/76; PULSE 77; RESP 13; TEMP 36.4; O2SAT 97; BMI 32.7
== END 2023-05-14 09:54 | disposition home or self-care (01) ==
PROVIDERS: PCP Family Medicine; Visit Provider Family Medicine
DX: Z00.00 Encounter for general adult medical examination without abnormal findings (principal); E11.9 Type 2 diabetes mellitus without complications; Z12.5 Encounter for screening for malignant neoplasm of prostate; Z12.11 Encounter for screening for malignant neoplasm of colon
CPT/HCPCS: 99396

== ENCOUNTER 2023-05-17 08:37 | Outpatient (AMB) | payer OTHER, SELFPAY ==
--- NOTE | 2023-05-17 08:48 | A.OFFVIS_ITS ---
Intake Vital Signs 05/17/23 08:53 Height 5 ft 11 in Weight 234 lb BMI 32.6 Intake Visit Reasons: PO-Rt Knee 04/30 Intake Note: Benji a 52 yr old male presents today for a post operative right knee 04/30/23 . Patient reports he is doing well, however he stepped off a shuttle bus and his quad was very sore but his knee is fine. Allergies No Known Allergies Allergy (Verified 05/17/23 08:53) HPI PO-Rt Knee 04/30 HPI Details 52-year-old male who returns to the [facility] today for post-op right knee , 04/30/[address] Haynes. He denies any knee pain but he does reports he stepped off a shuttle bus and experienced soreness in his quad. He is doing well overall and has no other concerns today. [facility] Medical History Arthritis Diabetes Palpitations Sinusitis Surgical History History of cholecystectomy History of knee surgery Family History Mother Hypertension Thyroid condition Father Hypertension High cholesterol Cardiovascular disease Maternal Grandmother Hypertension Paternal Grandmother Hypertension High cholesterol Cardiovascular disease Cancer Alcoholism Maternal Grandfather Hypertension Paternal Grandfather Hypertension High cholesterol Cardiovascular disease Social History Housing: House Alcohol intake: never Patient Tobacco Use Status: Never used Tobacco e-Cigarette/Vaping Use: Never Used service: No 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al status: employed 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: [employer] 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al exposures/hazards: Yes Cognitive needs: No Hearing needs: No Vision needs: No Review of Systems Const All systems reviewed & are unremarkable except as noted in HPI and below Physical Exam Vital Signs: BMI result Body Mass Index 32.6 Extrem Other: Right knee: Incision clean, dry and intact. No erythema or drain. Om 0-110 degrees. Calf supple, nontender. NVI. Results Reviewed Results Reviewed: Brief Operative Note Date of Service: 04/30/23 Pre-op diagnosis: Left knee medial meniscus tear, left knee lateral meniscus tear, left knee degenerative joint disease Post-op diagnosis: same Procedure: Left knee diagnostic arthroscopy with left knee arthroscopic partial medial and lateral meniscectomies, left knee arthroscopic chondroplasty of the undersurface of the patella, left knee arthroscopic plica excision Implants: none Surgeon: Zia Haynes MD Assessment & Plan Assessment & Plan (1) Tear of medial meniscus of right knee: Code(s): S83.241A - Other tear of medial meniscus, current injury, right knee, initial encounter Plan Sutures removed today, steri strips applied. We discussed maintaining his ROM and quad strength which he will do on his own. He will perform no impact activities or twisting and pivoting exercises for the next 4-6 weeks, at that time he will return to see Dr. Haynes, sooner if needed. Patient Instructions: Scribed for Barbara Ballesteros PA-C, by Miguel Kowalski medical aides teacher, on 05/17/2023 at 8:30 AM EST. I, Barbara Ballesteros PA-C, have personally reviewed and agree with the information entered by the scribe. Coding Level of Care Code Global (37422) Diagnoses Tear of medial meniscus of right knee S83.241A
[2023-05-17 08:53] VITALS: BMI 32.6
== END 2023-05-17 09:06 | disposition home or self-care (01) ==
PROVIDERS: PCP Family Medicine; Visit Provider Physician Assistant
DX: S83.241A Other tear of medial meniscus, current injury, right knee, initial encounter (principal)
CPT/HCPCS: 99024

== ENCOUNTER → 2023-05-17 08:37 | Outpatient (BNVA) | payer OTHER, SELFPAY | PROVIDERS: PCP Family Medicine; Visit Provider Physician Assistant ==

== ENCOUNTER 2024-05-19 08:48 | Outpatient (REF) | payer OTHER, SELFPAY | END 2024-05-19 08:49 | disposition home or self-care (01) | LOC: HO.HOSX 08:48 | PROVIDERS: Visit Provider Physician Assistant | DX: Z00.00 Encounter for general adult medical examination without abnormal findings (principal); F41.9 Anxiety disorder, unspecified; M25.551 Pain in right hip | CPT/HCPCS: 73502; 96127 ==

== ENCOUNTER 2024-05-19 08:57 | Outpatient (AMB) | payer OTHER, SELFPAY ==
--- NOTE | 2024-05-19 09:04 | MHC.PC.OV ---
Vital Signs 05/19/24 09:08 Height 5 ft 11 in Weight 244 lb 4 oz BMI 34.1 BP 104/70 Blood Pressure Location Rt brachial Position Sitting Respiration 16 Pulse 83 Pulse Source Pulse Oximeter Pulse Oximetry (%) 94 Oxygen Delivery Method Room Air Intake Visit Reasons: CPE with f/u labs and health maint. Intake Note: CPE Allergies No Known Allergies Allergy (Verified 05/19/24 09:05) Medication List - Last Reconciled 05/19/24 by Chuy Vitale MD albuterol sulfate 90 mcg/actuation 2 puffs inhalation Q4-6H PRN [Maegan ] citalopram 20 mg PO DAILY 90 days fluticasone propionate 50 mcg/actuation (Flonase Allergy Relief) 2 sprays intranasal QDAY glipizide ER 5 mg PO DAILY 30 days needle (disp) 25 gauge (BD PrecisionGlide) As directed [Pepcid ] semaglutide (Ozempic) 1 mg (0.75 mL) subcut QWEEK 28 days tamsulosin 0.4 mg PO DAILY testosterone cypionate 50 mg (0.5 mL) IM QWEEK 28 days Tobacco use date assessed: 05/19/24 Dental Screening Dental Screen Date: 05/19/24 Did you have a dental visit in the last 12 months?: Yes Did you have a dental problem in the last 6 months where you did not have access to dental care?: No Was dental information given to patient?: Patient has dentist HPI CPE with f/u labs and health maint. HPI Details 53 y/o male presents for a CPE with f/u labs and health maintenance. No recent labs to review. Diabetes managed by endocrinology. He notes last A1c 7.6% 5 months ago. They note they had increased his ozempic last office visit. He notes morning blood sugars have been high. Due for another colonoscopy in about 2 years. Reports life stressors/anxiety. Has not trialed any meds for mood before. He is currently seeing a therapist. HPI Comments History of Present Illness Details Documentation assistance for Chuy Vitale MD, was provided by Hector Cameron,? Automobile Or Truck Rental Dispatcher on 05/19/2024 at 9:29 AM EST. I, Dr. Vitale, have read, observed, and verified documentation. ?? [facility] Medical History Arthritis Diabetes Palpitations Sinusitis Surgical History History of cholecystectomy History of knee surgery Family History Mother Hypertension Thyroid condition Father Hypertension High cholesterol Cardiovascular disease Maternal Grandmother Hypertension Paternal Grandmother Hypertension High cholesterol Cardiovascular disease Cancer Alcoholism Maternal Grandfather Hypertension Paternal Grandfather Hypertension High cholesterol Cardiovascular disease Social History Housing: House Alcohol intake: never Patient Tobacco Use Status: Never used Tobacco e-Cigarette/Vaping Use: Never Used Second Hand Smoke Exposure: No service: No 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al status: employed 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: [employer] 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al exposures/hazards: Yes Cognitive needs: No Hearing needs: No Vision needs: No Questionnaire PHQ-9 Over the last 2 weeks, how often have you been bothered by any of the following problems? 1. Little interest or pleasure in doing things: not at all 2. Feeling down, depressed, or hopeless: not at all 3. Trouble falling or staying asleep, or sleeping too much: not at all 4. Feeling tired or having little energy: not at all 5. Poor appetite or overeating: several days 6. Feeling bad about yourself - or that you are a failure or have let yourself or your family down: not at all 7. Trouble concentrating on things, such as reading the newspaper or watching television: not at all 8. Moving or speaking so slowly that other people could have noticed. Or the opposite - being so fidgety or restless that you have been moving around a lot more than usual: not at all 9. Thoughts that you would be better off or of hurting yourself in some way: not at all Total score: 1 Depression Screening Interpretation: Negative Depression Screening Done: Yes 00539 - PHQ-9 Billing: Yes Source: Developed by Drs. Nain Euceda, Valencia Perez, Joao Vogt and colleagues, with an educational bridger from [employer]. Thrive Questionnaire Date Thrive assessed: 05/19/24 I am a: Patient What is your living situation today?: I have a steady place to live Within the past 12 months, did the food you bought not last and you didn't have the money to get more?: Never true Within the past 12 months, did you worry whether your food would run out before you got money to buy more?: Never true Do you have trouble paying for medicines?: No Do you have trouble getting transportation to medical appointments?: No Do you have trouble paying your heating and electricity bill?: No Do you have trouble taking care of your child, family member or friend?: No Do you have trouble with day-to-day activities such as bathing, preparing meals, shopping, managing finances, etc.?: No Are you currently unemployed and looking for a job?: No Are you interested in more education?: No Please select the resources that you would like help with: None Currently or been in a relationship where the following occur: No concerns reported THRIVE Score: 0 AUDIT C Alcohol Use Questionnaire (AUDIT-C) 1. How often do you have a drink containing alcohol?: Never 3. How often do you have six or more drinks on one occasion?: Never Total Score: 0 IVY-7 AMB Questionnaire IVY-7 Date IVY - 7 assessed: 05/19/24 Feeling nervous, anxious, or on edge: 1 = Several days Not being able to stop or control worryin = Several days Worrying too much about different things: 1 = Several days Trouble relaxin = Several days Being so restless that it is hard to sit still: 1 = Several days Becoming easily annoyed or irritable: 1 = Several days Feeling afraid as if something awful might happen: 0 = Not at all Total IVY-7 score (0-4 normal; 5-9 mild; 10-14 moderate; 15-21 severe): 6 Source: Developed by Drs. Nain Euceda, Valencia Perez, Joao Vogt and colleagues, with an educational bridger from [employer]. IVY-7 Assessment Billing IVY-7 Assessment Tool: IVY-7 Assessment 19861 Review of Systems Const Denies chills, Denies fatigue, Denies fever(s), Denies headache(s) and Denies weakness Eyes Denies change in vision ENT Denies dizziness, Denies headache(s), Denies hearing loss, Denies nasal congestion, Denies sinus pain, Denies sinus pressure and Denies sore throat Card Denies chest pain, Denies lightheadedness, Denies dyspnea and Denies other (palpitations) Resp Denies cough, Denies dyspnea and Denies wheezing GI Denies abdominal pain, Denies melena, Denies hematochezia, Denies change in bowel habits, Denies dyspepsia and Denies nausea Denies hematuria and Denies dysuria Musc Denies abnormal gait, Denies myalgias, Denies arthralgias, Denies numbness and Denies tingling Skin/Breast Denies rash, Denies unusual bruising and Denies wounds Neuro Denies abnormal gait, Denies dizziness, Denies headache(s), Denies memory loss, Denies numbness, Denies Sensory deficit (Neuro), Denies tingling and Denies weakness Psych Reports anxiety, Denies depression and Denies memory loss Endo Denies cold intolerance, Denies fatigue, Denies heat intolerance, Denies polydipsia and Denies polyuria Abhijeet/Lymph Denies easy bleeding and Denies easy bruising Aller/Immun Denies wheezing Physical exam (Primary Care) Vital Signs: Last Vital Signs Pulse 83 05/19/24 09:08 Resp 16 05/19/24 09:08 BP 104/70 05/19/24 09:08 Pulse Ox 94 05/19/24 09:08 Oxygen Delivery Method Room Air 05/19/24 09:08 BMI result Body Mass Index 34.1 Tobacco/Smoking Status: Tobacco use Status Tobacco use date assessed 05/19/24 05/19/24 09:10 Patient Tobacco Use Status Never used Tobacco 05/19/24 09:10 e-Cigarette/Vaping Use Never Used 05/19/24 09:10 PHQ-9: PHQ-9 Score PHQ-9: Total score 1 05/19/24 09:10 Depression Screening Interpretation: Negative Thrive Assessment: Date of Thrive Assessment Date Thrive assessed 05/19/24 05/19/24 09:10 Currently or been in a relationship where the following occur: No concerns reported Const General: no acute distress, well developed, alert and awake Nutritional Appearance: well nourished Orientation/consciousness: patient oriented x3 HENMT Head: Yes normocephalic and Yes atraumatic Ears: hearing grossly normal bilaterally and TM's normal bilaterally General nose exam: Normal external nose present and Normal nares present Mouth: Normal oral and palatal mucosa present and moist mucous membranes Teeth and gingiva: dentition normal Throat: Yes posterior oropharynx normal Eyes General: appearance normal, both eyes and all related structures Pupils: Equal, round and reactive pupils present and Pupil accommodation reflex normal EOM: EOMs intact bilaterally Neck Neck: Yes normal visual inspection, Yes no lymphadenopathy and Yes trachea midline Thyroid: Thyroid normal Carotids: no bruits Lymphatic: no lymphadenopathy noted Chest Chest palpation & inspection: normal inspection of the chest Resp Effort & Inspection: normal respiratory effort Auscultation: clear to auscultation bilaterally Cardio Rate: regular rate Rhythm: regular rhythm Heart sounds: S1 normal heart sound present, S2 normal heart sound present, no gallops, no murmurs and no rubs Bruits: no abdominal aortic bruits and no carotid bruits GI Palpation (GI): No Abdominal aortic bruit present, Soft to palpation, nontender, No hepatosplenomegaly present and No Rebound tenderness present Auscultation: normal bowel sounds General: Yes no CVA tenderness Back/Spine/Pelvis Back: no CVA tenderness Cervical Spine: cervical ROM normal and No Cervical spine tenderness Thoracic/Lumbar Spine: thoraco-lumbar ROM normal, No pain with thoraco-lumbar ROM, No thoracic spinal tenderness and No lumbar spinal tenderness Skin Lesions: no lesions Rashes: no rashes Trauma: no lacerations or abrasions Wounds: no wounds Nails: normal Neuro General: patient oriented x3 Cranial nerves: Yes Equal, round and reactive pupils present Cognition (Neuro): normal cognition Gait exam (Neuro): Normal gait present Motor exam (neuro): 5/5 motor strength present throughout Sensory Exam: No Sensory deficit (Neuro) Deep tendon reflexes (DTR's): Right patellar reflex intensity grade: 2+ and Left patellar reflex intensity grade: 2+ Extrem General: Yes normal to inspection and No edema Psych Appearance: grossly normal Affect: normal affect Attitude: cooperative Thought process: Normal thought process present Coding Level of Care Code Est Pt Level 3 (44967) Est Pt Prev Care 40-64y(51405) Diagnoses Adult general medical exam Z00.00 Diabetes E11.9 Anxiety F41.9 Screening for prostate cancer Z12.5 Screening for colon cancer Z12.11 Additional Codes IVY-7 Assessment Billing - IVY-7 Assessment Tool: IVY-7 Assessment 12099 ([id number]) PHQ-9 - 09521 - PHQ-9 Billing: Yes ([id number]) Assessment & Plan Assessment & Plan (1) Adult general medical exam: Code(s): Z00.00 - Encounter for general adult medical examination without abnormal findings Category: Medical Plan: 53-year-old?male?presents?for?complete?physical?exam (2) Diabetes: Code(s): E11.9 - Type 2 diabetes mellitus without complications Category: Medical Plan: Patient?notes?that?his?most?recent?A1c?was?about?7.6%?though I?do?not?have?the?data. He?also?notes?that?his?blood?sugars?are?still?elevated. Generally?he?is?managed?by?his?supervisor pole yard. I?am?increasing?his?Ozempic?from?0.5?mg?weekly?to?1.0?mg?weekly He?will?continue?his?glipizide?as?prescribed Follow-up?with?endocrinology?as?recommended Patient?has?regular?eye?exams. (3) Anxiety: Code(s): F41.9 - Anxiety disorder, unspecified Category: Medical Plan: Numerous?stressors?and?patient?is?going?through?relationship?difficulties?with?his??as?well. He?has?a?therapist.??I?did?recommend?a?couples?therapist?for?him?well?although?he?says?his??not?been agreeable?this?presently. We?discussed?1st?and?2nd?line?medications?for?anxiety?depression Will?start?him?on?citalopram?and?he?will?titrate?from?10?mg?daily?of?to?20?mg?daily?as?tolerated. Will?follow-up?in?month (4) Screening for prostate cancer: Code(s): Z12.5 - Encounter for screening for malignant neoplasm of prostate Category: Medical Plan: PSA?is?ordered?and?we?will?follow-up?at?his?next?visit (5) Screening for colon cancer: Code(s): Z12.11 - Encounter for screening for malignant neoplasm of colon Category: Medical Plan: Patient?says?he?had?a?colonoscopy?about?8?years?ago?was?told?2?years. 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
[2024-05-19 09:08] VITALS: BP 104/70; PULSE 83; RESP 16; O2SAT 94; BMI 34.1
== END 2024-05-19 09:41 | disposition home or self-care (01) ==
PROVIDERS: PCP Family Medicine; Visit Provider Family Medicine
DX: Z00.00 Encounter for general adult medical examination without abnormal findings (principal); E11.9 Type 2 diabetes mellitus without complications; F41.9 Anxiety disorder, unspecified; Z12.5 Encounter for screening for malignant neoplasm of prostate; Z12.11 Encounter for screening for malignant neoplasm of colon

== ENCOUNTER 2024-05-19 09:49 | Outpatient (REF) | payer OTHER, SELFPAY ==
[2024-05-19 12:00] LABS: Appearance Urine Turbid; Color Urine Dark Yellow; Glucose Urine UA Negative (Negative); Leukocyte Esterase Urine Negative (Negative); Nitrite Urine Negative (Negative); PH 5.5 (5.0-9.0); Specific Gravity - Urine 1.025 (1.005-1.025); Urine Blood Negative (Negative); Urine Ketones Trace mg/dL (Negative); Urine Protein Trace mg/dL (Neg-Trace)
[2024-05-19 12:14] LABS: Creatinine Urine 340.59 mg/dL; Microalbum/Creatinine Ratio Ur 12.6 ug/mg cr (<30)
[2024-05-19 12:30] LABS: Estimated Average Glucose 180 mg/dL; Hemoglobin A1C 295.0972 umol/L; Hemoglobin A1c % 7.9 % (<6.0); Total Hemoglobin (HGBA1C) 4687.9882 umol/L
[2024-05-19 13:19] LABS: Alanine Aminotransferase 35 U/L (0-40); Albumin Level 4.3 g/dL (3.5-5.0); Alkaline Phosphatase 124 U/L (39-117); Anion Gap 9 (12-20); Aspartate Amino Transferase 28 U/L (5-37); Bilirubin Total 0.8 mg/dL (0.0-1.0); Blood Urea Nitrogen 14 mg/dL (9-16); Calcium 9.1 mg/dL (8.4-10.2); Carbon Dioxide 29 mmol/L (22-29); Chloride 104 mmol/L (96-108); Cholesterol 159 mg/dL (<200); Estimated Glomerular Filt Rate > 60; Glucose Fasting 202 mg/dL (60-99); HDL Cholesterol 40 mg/dL (>40); LDL Cholesterol Calculated 99 mg/dL (<100); Potassium 4.2 mmol/L (3.3-5.1); Sodium 138 mmol/L (135-145); Total Protein 7.5 g/dL (6.5-8.0); Triglycerides 100 mg/dL (<150)
[2024-05-19 13:22] LABS: TSH reflex Free T4 1.22 uIU/mL (0.32-4.0)
[2024-05-19 13:24] LABS: Prostate Specific Antigen Scr 0.65 ng/mL (<0.05-4.0)
[2024-05-26 16:28] LABS: Testosterone, Total 293 ng/dL (250-1100)
== END 2024-05-19 09:50 | disposition home or self-care (01) ==
LOC: HO.WFDLDS 09:49
PROVIDERS: Visit Provider Family Medicine
DX: Z00.00 Encounter for general adult medical examination without abnormal findings (principal); R73.01 Impaired fasting glucose; I10 Essential (primary) hypertension; Z12.5 Encounter for screening for malignant neoplasm of prostate; R79.89 Other specified abnormal findings of blood chemistry
CPT/HCPCS: 36415; 80053; 80061; 81003; 82043; 82570; 83036; 84153; 84402; 84403; 84443

== ENCOUNTER 2024-05-19 11:05 | Outpatient (AMB) | payer OTHER, SELFPAY ==
--- NOTE | 2024-05-19 11:21 | MHC.OFFVIS ---
Vital Signs 05/19/24 11:28 Height 5 ft 11 in Weight 244 lb BMI 34.0 Intake Visit Reasons: New prob- Right hip pain, injection request Intake Note: Benji a 53 year old male who presents today for an evaluation of right hip pain. Patient reports his pain has been present for awhile. Denies injury. No previous tx. His pain is located in his groin and radiates to the lateral aspect of hip. No numbness or tingling. States his pain is brought on with walking. Finds some relief with ibuprofen. He would like to discuss injection. Allergies No Known Allergies Allergy (Verified 05/19/24 11:27) Medication List - Last Reconciled 05/19/24 by Barbara Ballesteros PA-C albuterol sulfate 90 mcg/actuation 2 puffs inhalation Q4-6H PRN [Maegan ] citalopram 20 mg PO DAILY 90 days fluticasone propionate 50 mcg/actuation (Flonase Allergy Relief) 2 sprays intranasal QDAY glipizide ER 5 mg PO DAILY 30 days needle (disp) 25 gauge (BD PrecisionGlide) As directed [Pepcid ] semaglutide (Ozempic) 1 mg (0.75 mL) subcut QWEEK 28 days tamsulosin 0.4 mg PO DAILY testosterone cypionate 50 mg (0.5 mL) IM QWEEK 28 days HPI HPI New prob- Right hip pain, injection request: Details: 53-year-old male who presents to the office today for an evaluation of right hip pain. He has not had any previous injury. He currently states he has pain at the lateral aspect of hip that radiates to his groin area. He denies any numbness or tingling. His pain is aggravated with ambulation. He finds mild relief with ibuprofen. He denies any treatment in the past. He is not significantly limited in daily activities. He has a history of diabetes. His most recent HbA1c was 7.5%. [facility] Medical History Arthritis Diabetes Palpitations Sinusitis Surgical History History of cholecystectomy History of knee surgery Family History Mother Hypertension Thyroid condition Father Hypertension High cholesterol Cardiovascular disease Maternal Grandmother Hypertension Paternal Grandmother Hypertension High cholesterol Cardiovascular disease Cancer Alcoholism Maternal Grandfather Hypertension Paternal Grandfather Hypertension High cholesterol Cardiovascular disease Social History Housing: House Alcohol intake: never Patient Tobacco Use Status: Never used Tobacco e-Cigarette/Vaping Use: Never Used Second Hand Smoke Exposure: No service: No 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al status: employed 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: [employer] 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al exposures/hazards: Yes Cognitive needs: No Hearing needs: No Vision needs: No Review of Systems Const All systems reviewed & are unremarkable except as noted in HPI and below Physical Exam Vital Signs: BMI result Body Mass Index 34.0 Extrem Other: Right hip: Normal to inspection, ambulates with a slight limp. Has mild discomfort with internal and extension rotation of hip. No significant stiffness. Mild discomfort with hip flexion against resistance. NVI. Results Reviewed Results Reviewed: X-rays of the right hip obtained in the office today show severe degenerative arthritis Assessment & Plan Assessment & Plan (1) Arthritis of right hip: Code(s): M16.11 - Unilateral primary osteoarthritis, right hip Category: Medical Plan We discussed options today which include physical therapy for strengthening exercises. We also discussed benefits of a steroid injection and lastly surgical intervention. While he is a candidate for TITUS, he would like to exhaust all conservative measures first. Therefore, he will have a intraarticular hip injection done under fluoroscopy at hospital. I did explain that this is a one-time thing and if he has no relief with the injection or has worsening symptoms, we will discuss about having a TITUS. He is content with this plan and further follow-ups should be done with Dr. Rdz. Orders: Orders XR hip RT min 2V Today M25.551 - Pain in right hip Patient Instructions: Scribed for Barbara Ballesteros PA-C, by Miguel Kowalski medical equipment repair technician, on 05/19/2024 at 11:15 AM EST.? I, Barbara Ballesteros PA-C, have personally reviewed and agree with the information entered by the scribe. Coding Level of Care Code New Pt Level 3 (58483) Complex EM visit Add On G2211 Diagnoses Arthritis of right hip M16.11
[2024-05-19 11:28] VITALS: BMI 34.0
== END 2024-05-19 11:45 | disposition home or self-care (01) ==
PROVIDERS: PCP Family Medicine; Visit Provider Physician Assistant
DX: M16.11 Unilateral primary osteoarthritis, right hip (principal)
CPT/HCPCS: 99213; G2211

== ENCOUNTER 2024-06-30 10:17 | Outpatient (AMB) | payer OTHER, SELFPAY ==
--- OUTSIDE RECORDS SUMMARY | 2024-06-30 11:01 | XMS_ITS | Encounter Summary ---
Author Organization [facility] Address [address] [place] [address] Care Team Providers Care General Science Teacher Name Role Phone Chuy Vitale MD Primary Care Provider [phone] Encounter Details Date Type Department Care Team (Late st Contact Info) Description 05/01/2024 Telephone [facility] [address] [place] [phone] Motor Vehicle Examiner: Mitesh Mccollum MD [address] [place] [address] [phone] (Work) Social History Tobacco Use Types Packs/Day Years Used Date Smoking Tobacco: Never Assessed Sex and Gender Information Value Date Recorded Sex Assigned at Male 10/15/2022 4:06 PM EDT Legal Sex Male 10:13 AM EDT Gender Identity Male 10/15/2022 4:06 PM EDT Sexual Orientation Straight 10/15/2022 4: 06 PM EDT documented as of this encounter Miscellaneous Notes * Telephone Encounter - Ebonie Hatch - 05/04/2024 1:16 PM EST Appt booked. * Telephone Encounter - Jessica Santana - 05/02/2024 1:28 PM EST 2nd attempt LVM * Telephone Encounter - Jessica Santana - 05/01/2024 1:25 PM EST Lvm for pt to call our clinic to schedule appointment for renewal * Telephone Encounter - Mitesh Landrum MD - 05/01/2024 11:39 AM EST He must be seen by me in-person in order to have his testosterone script renewed. I have open slotsnow tomorrow and Wednesday at 4:30PM, Wednesday at 10AM, and on 05/23 at 3:30PM. documented in this encounter Plan of Treatment Upcoming Encounters Date Type Department Care Team (Late st Contact Info) Description 08/25/2024 9:00 AM EDT Office Visit [facility] [address] [place] [id number] Motor Vehicle Examiner: Mitesh Mccollum MD [address] [place] [address] [phone] (Work) documented as of this encounter Visit Diagnoses Not on filedocumented in this encounter Care Teams General Science Teacher Relationship Specialty Start Date End Date Chuy Vitale MD [address] [place] [phone] PCP - General Family Medicine 10/19/22 documented as of this encounter
--- OUTSIDE RECORDS SUMMARY | 2024-06-30 11:01 | XMS_ITS | Encounter Summary ---
Author Organization [facility] Address [address] [place] [address] Care Team Providers Care Thai Masseur Name Role Phone Chuy Vitale MD Primary Care Provider [phone] Encounter Details Date Type Department Care Team (Late st Contact Info) Description 06/15/2024 Telephone [facility] [address] [place] [phone] Small Order Cutter: Mitesh Mccollum MD [address] [place] [phone] (Work) Social History Tobacco Use Types Packs/Day Years Used Date Smoking Tobacco: Never Assessed Sex and Gender Information Value Date Recorded Sex Assigned at Male 10/15/2022 4:06 PM EDT Legal Sex Male 10:13 AM EDT Gender Identity Male 10/15/2022 4:06 PM EDT Sexual Orientation Straight 10/15/2022 4: 06 PM EDT documented as of this encounter Miscellaneous Notes * Telephone Encounter - Mitesh Landrum MD - 06/15/2024 9:02 AM EST Please put him in with me on 08/25 at 9AM and cancel his apt with Mireille on 08/15. The patient is aware. documented in this encounter Plan of Treatment Upcoming Encounters Date Type Department Care Team (Late st Contact Info) Description 08/25/2024 9:00 AM EDT Office Visit [facility] [address] [place] [address] Small Order Cutter: Mitesh Mccollum MD [address] [place] [phone] (Work) documented as of this encounter Visit Diagnoses Not on filedocumented in this encounter Care Teams Thai Masseur Relationship Specialty Start Date End Date Chuy Vitale MD [address] [place] [phone] PCP - General Family Medicine 10/19/22 documented as of this encounter
--- OUTSIDE RECORDS SUMMARY | 2024-06-30 11:01 | XMS_ITS | Referral Summary ---
Author Organization [facility] Address [address] [place] [address] Care Team Providers Care Property Staff Accountant Name Role Phone Chuy Vitale MD Primary Care Provider [phone] Encounters Date Type Department Care Team Description 06/15/2024 Telephone [facility] [address] [place] [address] Track Repair Laborer: Mitesh Mccollum MD 06/15/2024 Refill [facility] [address] [place] [address] Track Repair Laborer: Mitesh Mccollum MD 06/03/2024 Refill [facility] [address] [place] [address] Track Repair Laborer: Mitesh Mccollum MD 05/01/2024 Telephone [facility] [address] [place] [address] Track Repair Laborer: Mitesh Mccollum MD 04/29/2024 Refill [facility] [address] [place] [address] Track Repair Laborer: Mitesh Mccollum MD 04/03/2024 Refill [facility] Building Diabetes [facility] [address] [place] [address] Track Repair Laborer: Mitesh Mccollum MD from Last 3 Months Allergies Active Allergy Reactions Criticality Noted Date Comments Metformin Diarrhea 04/17/2022 Medications acyclovir (ZOVIRAX) 5 % ointment Active albuterol (PROAIR HFA,VENTOLIN HFA) 90 mcg inhaler 2 puffs every 4 hours as needed. Active Accu-Chek Guide Me Glucose Mtr misc USE DIRECTED. Active clotrimazole-bet amethasone (LOTRISONE) cream SMARTSIG:Topical Morning-Evening Active famotidine (PEPCID) 20 mg tablet Take 20 mg by mouth 2 times a day. Active Accu-Chek Fastclix Lancet Drum misc USE DIRECTED. TEST 5 TIMES/DAY Active valACYclovir (VALTREX) 1 gram tablet Take 1,000 mg by mouth every 12 hours. prn 021 Active BD PrecisionGlide 25 gauge x 1 needle Use 1 weekly 50 each 023 Active Accu-Chek Guide test strips test strip Use to test 5 times daily. 500 strip 3 023 Active tamsulosin (FLOMAX) 0.4 mg capsule Take 0.4 mg by mouth once a day. Active semaglutide (Ozempic) 1 mg/dose (4 mg/3 mL) pen injector Inject 0.75 mL (1 mg total) under the skin every 7 days. 3 mL 11 024 Active VanishPoint Tuberculin Syringe 1 mL 25 gauge x 5/8 syringe One a week 50 each 1 024 Active testosterone cypionate (DEPO-TESTOSTERO NE) 200 mg/mL injection INJECT 0.5 ML (100 MG) EVERY OTHER WEEK INTRAMUSCULARLY. DISCARD VIAL AFTER EACH PUNCTURE 2 mL 025 Active glipiZIDE XL (GLUCOTROL XL) 5 mg tablet TAKE 1 TABLET BY MOUTH ONCE A DAY 90 tablet 1 025 Active glipiZIDE XL (GLUCOTROL XL) 5 mg tablet Take 1 tablet (5 mg total) by mouth once a day. 90 tablet 3 023 2024 Discontinued testosterone cypionate (DEPO-TESTOSTERO NE) 200 mg/mL injection INJECT 0.5 ML (60 MG) EVERY OTHER WEEK INTRAMUSCULARLY 4 mL 2 024 2024 Discontinued Active Problems Problem Noted Date Diagnosed Date Polycythemia 10/25/2023 Benign prostatic hyperplasia with nocturia 04/20 Low testosterone in male 04/20/2022 Assessment & Plan (10/25/2023 1:43 PM EDT): His serum testosterone five days after his last injection is in the upper part of the normal range at 667 ng/dL. His serum hemoglobin and hematocrit are elevated to day. I will advise him to reduce his dose of testosterone. Assessment & Plan (04/20/2023 9:39 PM EST): He is taking a modest dose of testosterone and his blood level was in the lower part of the nor mal range in January. However, his serum hemoglobin remains in the upper part of the normal range, so it is not safe to increase his dose of testosterone at all. Assessment & Plan (10/19/2022 6:32 AM EDT): Serum hemoglobin is at the upper end of normal, so it is not safe for him to further increase his dose of testosterone. He feels much better since beginning testosterone, so I am reluctant to stop it. He is taking a relatively low dose of testosterone. A bioavailable testosterone level from five days after his last testosterone injection is pending. Assessment & Plan (04/20/2022 11:46 AM EST): His level of 257 ng/dL in October was only borderline low. I do not have any results of SHBG tests. It is not clear to me that chronic testosterone therapy is indicted. Serum hemoglobin today was borderline high which is a potential side effect of testosterone therapy. He is only taking a modest dose. He has developed BPH symptoms on the testosterone. He will be seeing urology next week. We discussed the option of reducing his testosterone to 40 mg a week. Chronic constipation 04/20/2022 Assessment & Plan (04/20/2022 11:49 AM EST): This may be a side effect of the Trulicity. Type 2 diabetes mellitus wit hout complication, without long-term current use of insulin ([facility]) 04/17/2022 Assessment & Plan (10/25/2023 1:39 PM EDT): His A1c of 8.4% today is too high as is his fasting glucose at 1PM of 144 mg/dL. His blood sugars at home after supper are going up too high. He needs lifestyle changes. I will increase his dose of Ozempic to 1 mg a week and encourage lifestyle changes today. Assessment & Plan (04/20/2023 9:37 PM EST): His A1c of 7.2% and glucose of 110 mg/dL 3 hours after eating today indicate his diabetic control is reasonable. His average fasting sugar and his sugar after his evening snack are reasonable. He has had issues with constipation on both dulaglutide and semaglutide. We discussed the option of his trying tirzepatide. He will consider and get back to me if he is interested in trying tirzepatide which I believe would require a PA. Assessment & Plan (10/19/2022 6:29 AM EDT): His A1c today of 7.5% and his glucose of 161 mg/dL 3 hours after eating are a little higher than the goal range. His average fasting at home of 155 is also a little high. He believes the dulaglutide is causing him to be constipatied. This is potentially a known side effect of all GLP-1 Agustín, but is somewhat idiosyncratic . I will transition him to the more efficacious agent semaglutide in the hopes his diabetic control will improve and his constipation will lessen. He was taught how to use sn Ozempic pen. Assessment & Plan (04/20/2022 11:44 AM EST): His A1c today of 7.3% is fair, but a bit sub-optimal. His glucose today of 112 mg/dL 2.5 hours after eating is great. His reported sugars from home are good. We cold add low dose pioglitazone to try to further improve his diabetic control. He prefers not to do so at this time. Mixed hyperlipidemia 04/17/2022 Assessment & Plan (10/25/2023 1:42 PM EDT): LDL today is a little higher than ideal at 111 mg/dL. LDL in January had been lower at 87. He is not currently taking a statin. I will encourage him to do so. Assessment & Plan (04/20/2023 9:39 PM EST): LDL cholesterol was good at 87 in January. He is not taking any lipid lowering medications. Assessment & Plan (10/19/2022 6:31 AM EDT): Non-HDL cholesterol was good at 128 in December. He is taking a moderate intensity statin. Assessment & Plan (04/20/2022 11:48 AM EST): Non-HDL cholesterol in December was accepatble at 128. He is taking 5 mg of rosuvastatin only three days a week. Social History Tobacco Use Types Packs/Day Years Used Date Smoking Tobacco: Never Assessed Sex and Gender Information Value Date Recorded Sex Assigned at Male 10/15/2022 4:06 PM EDT Legal Sex Male 10:13 AM EDT Gender Identity Male 10/15/2022 4:06 PM EDT Sexual Orientation Straight 10/15/2022 4: 06 PM EDT Last Filed Vital Signs Vital Sign Reading Time Taken Comments Blood Pressure 114/74 10/22/2023 12:54 PM EDT Pulse 74 10/22/2023 12:54 PM EDT Temperature - - Respiratory Rate - - Oxygen Saturation - - Inhaled Oxygen Concentration - - Weight 109.8 kg (242 lb) 10/22/2023 12:54 PM EDT Height 180.3 cm (5' 11 ) 10/22/2023 12:54 PM EDT Body Mass Index 33.75 10/22/2023 12:54 PM EDT Plan of Treatment Upcoming Encounters Date Type Department Care Team (Late st Contact Info) Description 08/25/2024 9:00 AM EDT Office Visit [facility] [address] [place] [address] Track Repair Laborer: Alexandria Landrum, Mitesh Guidry MD [address] [place] [phone] (Work) Procedures * Due to [facility] law, this organization might not be sharing negative HIV tests. Procedure Name Priority Date/Time Associated Diagnosis Comments POCT GLYCOSYLATED HEMOGLOBIN (HGB A1C) Routine 10/22/2023 12:49 PM EDT MICROALBUMIN, RANDOM URINE WITH CREATININE Routine 04/20/2023 4:19 PM EST Type 2 diabetes mellitus without complication, without long-term current use of insulin ([facility] ([facility]) COMPREHENSIVE METABOLIC PANEL, OUTSIDE LAB Routine 02/05/2023 from Last 3 Months or Most Recently Relevant to Health Maintenance Results * Due to [place] [employer] law, this organization might not be sharing negative HIV tests. * (ABNORMAL) POCT Glycosylated Hemoglobin (HGB A1C), interfaced (10/22/2023 12:49 PM EDT) Hemoglobin A1C, POCT 8.4(H) <=5.6 % 10/22/2023 1:01 PM EDT [facility] Comment: A1C Recommendation for Non- Adults with Diabetes: <7.0% ADA 2011 Standards of Medical Care in Diabetes Blood 10/22/2023 12:4 9 PM EDT 10/22/2023 1:01 PM EDT us Mitesh Landrum MD LAB POCT ORDERABLES - DEVICE Final Result [facility], [address] [address], * Microalbumin, Random Urine with Creatinine (04/20/2023 4:19 PM EST) Microalbumin, Urine <1.0 mg/dL 04/20/2023 5:11 PM EST [facility] Creatinine, Urine 144 22 - 328 mg/dL 04/20/2023 5:11 PM EST [facility] Microalb/Creat Ratio, Random Urine 04/20/2023 5:11 PM EST [facility] Comment: < 1.0 mcg/mgCr Microalbumin Reference Range: Normal ? <30 mcg/mg Creatinine Microalbuminuria ? 30-300 mcg/mg Creatinine Clinical Albuminuria >300 mcg/mg Creatinine Reference: ADA Guideline. Diabetes Care. 2004;27 (suppl 1) Urine Voided urine specimen / Unknown Non-Blood Collection / Unknown 04/20/2023 4:19 PM EST 04/20/2023 4:32 PM EST us Mitesh Landrum MD LAB URINE ORDERABLES [facility] [address] [place] [address], * Comprehensive Metabolic Panel, Outside Lab (02/05/2023) Sodium 140 mmol/L Potassium 4.0 Creatinine 1.0 mg/dL AST 19 U/L ALT 23 U/L Blood Structure of peripheral vein / Unknown 02/05/2023 us Unknown Provider LAB BLOOD ORDERABLES Final R esult from Last 3 Months or Most Recently Relevant to Health Maintenance Insurance [employer] Care Teams Property Staff Accountant Relationship Specialty Start Date End Date Chuy Vitale MD [address] [place] [address] PCP - General Family Medicine 10/19/22
--- OUTSIDE RECORDS SUMMARY | 2024-06-30 11:01 | XMS_ITS | Encounter Summary ---
Author Organization [facility] Address [address] [place] [address] Care Team Providers Care Lathing Supervisor Name Role Phone Chuy Vitale MD Primary Care Provider [phone] Reason for Visit * Reason Comments Med Refill Encounter Details Date Type Department Care Team (Late st Contact Info) Description 06/03/2024 Refill [facility] [address] [place] [address] Director Of Education: Mitesh Mccollum MD [address] [place] [phone] (Work) Social History Tobacco Use Types Packs/Day Years Used Date Smoking Tobacco: Never Assessed Sex and Gender Information Value Date Recorded Sex Assigned at Male 10/15/2022 4:06 PM EDT Legal Sex Male 10:13 AM EDT Gender Identity Male 10/15/2022 4:06 PM EDT Sexual Orientation Straight 10/15/2022 4: 06 PM EDT documented as of this encounter Miscellaneous Notes * Telephone Encounter - Breonna Kruger, TEST DECK SUPERVISOR - 06/05/2024 7:23 AM EST Last visit in DIABETES dept 10-22-2023 with RENÉE Refill request received for Requested Prescriptions Pending Prescriptions Disp Refills glipiZIDE XL (GLUCOTROL XL) 5 mg tablet [Pharmacy Med Name: GLIPIZIDE ER 5 MG TABLET] 90 tablet 1 Sig: TAKE 1 TABLET BY MOUTH ONCE A DAY Prescription sent to PROVIDER for review. Next visit in dept: 08/15/2024 Future Appointments Date Time Provider Department Center 08/15/2024 4:00 PM Mireille Valenzuela NP [facility] Diabetes [facility] DIABETES ADMIN STAFF, Please contact the pt and advise pt to book fup appt with provider in diabetes clinic. Thank you documented in this encounter Plan of Treatment Upcoming Encounters Date Type Department Care Team (Late st Contact Info) Description 08/25/2024 9:00 AM EDT Office Visit [facility] [address] [place] [address] Director Of Education: Mitesh Mccollum MD [address] [place] [phone] (Work) documented as of this encounter Visit Diagnoses Not on filedocumented in this encounter Care Teams Lathing Supervisor Relationship Specialty Start Date End Date Chuy Vitale MD [address] [place] [phone] PCP - General Family Medicine 10/19/22 documented as of this encounter
--- OUTSIDE RECORDS SUMMARY | 2024-06-30 11:01 | XMS_ITS | Encounter Summary ---
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 Next visit in dept: 08/15/2024 Future Appointments Date Time Provider Department Center 08/15/2024 4:00 PM Mireille Valenzuela NP [facility] Diabetes [facility] DIABETES ADMIN STAFF, Please contact the pt and advise pt to book fup appt with provider in diabetes clinic. 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
--- OUTSIDE RECORDS SUMMARY | 2024-06-30 11:01 | XMS_ITS | Clinical Summary ---
Author Organization [facility] Address [address] [place] [address] Care Team Providers Care Returned Goods Inspector Name Role Phone Chuy Vitale MD Primary Care Provider [phone] Allergies Active Allergy Reactions Criticality Noted Date Comments Metformin Diarrhea 04/17/2022 Medications acyclovir (ZOVIRAX) 5 % ointment Active albuterol (PROAIR HFA,VENTOLIN HFA) 90 mcg inhaler 2 puffs every 4 hours as needed. 022 Active Accu-Chek Guide Me Glucose Mtr misc USE DIRECTED. Active clotrimazole-bet amethasone (LOTRISONE) cream SMARTSIG:Topical Morning-Evening 022 Active famotidine (PEPCID) 20 mg tablet Take 20 mg by mouth 2 times a day. 022 Active Accu-Chek Fastclix Lancet Drum misc USE DIRECTED. TEST 5 TIMES/DAY 021 Active valACYclovir (VALTREX) 1 gram tablet Take [...] complication, without long-term current use of insulin ([facility]) 04/17/2022 Assessment & Plan (10/25/2023 1:39 PM [...] of rosuvastatin only three days a week. Encounters Date Type Department Care Team Description 06/15/2024 Telephone [facility] [address] [place] [address] Stablehand: Mitesh Mccollum MD 06/15/2024 Refill [facility] [address] [place] [address] Stablehand: Mitesh Mccollum MD 06/03/2024 Refill [facility] [address] [place] [address] Stablehand: Mitesh Mccollum MD 05/01/2024 Telephone [facility] [address] [place] [address] Stablehand: Mitesh Mccollum MD 04/29/2024 Refill [facility] [address] [place] [address] Stablehand: Mitesh Mccollum MD 04/03/2024 Refill [facility] [address] [place] [address] Stablehand: Mitesh Mccollum MD from Last 3 Months Social History Tobacco Use Types Packs/Day Years [...] Description 08/25/2024 9:00 AM EDT Office Visit [facility] [address] [place] [address] Stablehand: Mitesh Mccollum MD [address] [place] [phone] (Work) Health Maintenance Due Date Last Done Comments Cologuard 1968 Colon Cancer Screening 1968 Colonoscopy 1968 FOBT / Fit Test 1968 HIV Screening 1968 Hepatitis C Screening 1968 Sigmoidoscopy 1968 Ophthalmology Exam 1978 Hepatitis B Vaccines (1 of 3 - 19+ 3-dose series) 08/08/1987 Pneumococcal Vaccine: Pediat mina (0-5 Years) and At-Risk Patients (6-64 Years) (2 of 2 - PCV) 07/14/2013 07/14/2012 Zoster Vaccines (1 of 2) 2018 COVID-19 Vaccine (2023-2 5 season) 2024 06/04/2023, 11/06/2022, 03/18/2022, Additional history exists Basic Metabolic Panel 02/06/2024 02/05/2023 , 05/06/2022, 02/16/2022, Additional history exists Urine Microalbumin 04/20/2024 04/20/2023, 01/26/2022 Alcohol/Substance Use Screening 05/31/2024 Depression Screening and Follow-Up 05/31/2024 Social Drivers of Health Flores ual Screening 05/31/2024 Hemoglobin A1C 11/30/2024 06/02/2024, 11/0 12/2023, 02/11/2024, Additional history exists DTaP,Tdap,and Td Vaccines (2 - Td or Tdap) 03/07/2028 03/07/2018, 11/05/2006 RSV Vaccine (60+ years old a nd patients) (1 - 1-dose 75+ series) 08/08/2043 Influenza Vaccine Completed 06/23/2024, , 03/18/2022, Additional history exists Procedures * Due to [place] state law, this organization might not be sharing negative HIV tests. Procedure Name Priority Date/Time Associated Diagnosis Comments POCT GLYCOSYLATED HEMOGLOBIN (HGB A1C) Routine 10/22/2023 12:49 PM EDT MICROALBUMIN, RANDOM URINE WITH CREATININE Routine 04/20/2023 4:19 PM EST Type 2 diabetes mellitus without complication, without long-term current use of insulin (CMS/HCC) (HCC) COMPREHENSIVE METABOLIC PANEL, OUTSIDE LAB Routine 02/05/2023 from Last 3 Months or Most Recently Relevant to Health Maintenance Results * Due to [place] state law, this organization might not be sharing negative HIV tests. * (ABNORMAL) POCT Glycosylated Hemoglobin (HGB A1C), interfaced (10/22/2023 12:49 PM EDT) Hemoglobin A1C, POCT 8.4(H) <=5.6 % 10/22/2023 1:01 PM EDT [facility] Comment: A1C Recommendation for Non- Adults with Diabetes: <7.0% ADA 2011 Standards of Medical Care in Diabetes Blood 10/22/2023 12:4 9 PM EDT 10/22/2023 1:01 PM EDT us Mitesh Landrum MD LAB POCT ORDERABLES - DEVICE Final Result [facility] [address] [place] [address], * Microalbumin, Random Urine with Creatinine (04/20/2023 4:19 PM EST) Microalbumin, Urine <1.0 mg/dL 04/20/2023 5:11 PM EST [facility] Creatinine, Urine 144 22 - 328 mg/dL 04/20/2023 5:11 PM EST [facility] Microalb/Creat Ratio, Random Urine 04/20/2023 5:11 PM EST [facility] Comment: < 1.0 mcg/mgCr Microalbumin Reference Range: Normal ? <30 mcg/mg Creatinine Microalbuminuria ? 30-300 mcg/mg Creatinine Clinical Albuminuria >300 mcg/mg Creatinine Reference: ADA Guideline. Diabetes Care. 2004;27 (suppl 1) Urine Voided urine specimen / Unknown Non-Blood Collection / Unknown 04/20/2023 4:19 PM EST 04/20/2023 4:32 PM EST us Mitesh Landrum MD LAB URINE ORDERABLES Final Re sult [facility] [address] [place] [address], [place] * Comprehensive Metabolic Panel, Outside Lab (02/05/2023) Sodium 140 mmol/L Potassium 4.0 Creatinine 1.0 mg/dL AST 19 U/L ALT 23 U/L Blood Structure of peripheral vein / Unknown 02/05/2023 us Unknown Provider LAB BLOOD ORDERABLES Final R esult from Last 3 Months or Most Recently Relevant to Health Maintenance Insurance [employer] Care Teams Returned Goods Inspector Relationship Specialty Start Date End Date Chuy Vitale MD [address] [place] [phone] PCP - General Family Medicine 10/19/22
--- OUTSIDE RECORDS SUMMARY | 2024-06-30 11:01 | XMS_ITS | Encounter Summary ---
Author Organization [facility] Address [address] [place] [address] Care Team Providers Care Food And Beverage Server Name Role Phone Chuy Vitale MD Primary Care Provider [phone] Reason for Visit * Reason Onset Date Comments PAC Rx Questions 05/26/2022 Encounter Details Date Type Department Care Team (Late st Contact Info) Description 05/26/2022 Telephone [facility] Patient Access Center [address] [place] [address] Telephone Intake, Staff PAC Rx Questions Social History Tobacco Use Types Packs/Day Years Used Date Smoking Tobacco: Never Assessed Sex and Gender Information Value Date Recorded Sex Assigned at Male 10/15/2022 4:06 PM EDT Legal Sex Male 10:13 AM EDT Gender Identity Male 10/15/2022 4:06 PM EDT Sexual Orientation Straight 10/15/2022 4: 06 PM EDT documented as of this encounter Miscellaneous Notes * Telephone Encounter - Mariza Platt - 05/26/2022 12:31 PM EST Pts calling as he is out of his Trulicity ( he leaves for work in [place] Wednesday) & needs a refill before he leaves. [facility] Pt can be reached @ [phone] Thank you PAC documented in this encounter Plan of Treatment Upcoming Encounters Date Type Department Care Team (Late Contact Info) Description 08/25/2024 9:00 AM EDT Office Visit [facility] [address] [place] [address] Bench Molder Apprentice: Mitesh Mccollum MD [address] [place] [phone] (Work) documented as of this encounter Visit Diagnoses Diagnosis Type 2 diabetes mellitus without complication, without long-term current use of insulin (CMS/HCC) (HCC)- Primary documented in this encounter Care Teams Food And Beverage Server Relationship Specialty Start Date End Date Chuy Vitale MD [address] [place] [phone] PCP - General Family Medicine 10/19/22 documented as of this encounter
--- NOTE | 2024-06-30 11:03 | MHC.PC.OV ---
Vital Signs 06/30/24 11:08 Height 5 ft 11 in Weight 241 lb 6 oz BMI 33.7 BP 110/70 Blood Pressure Location Rt brachial Position Sitting Respiration 14 Pulse 68 Pulse Source Pulse Oximeter Temp 97.7 F Temp Source Oral Pulse Oximetry (%) 96 Oxygen Delivery Method Room Air Intake Visit Reasons: f/u anxiety, labs Intake Note: f/u anxiety and lab review Allergies No Known Allergies Allergy (Verified 06/30/24 11:04) Tobacco use date assessed: 05/19/24 Dental Screening Dental Screen Date: 05/19/24 HPI f/u anxiety, labs HPI Details 53 y/o male presents to f/u anxiety, labs. Labs drawn 05/19/24. Reviewed labs with pt. A1c 7.9%. Triglycerides 100. TC 159. LDL 99. HDL 40. PSA 0.65. Fasting glucose at home 90-100. A1c today 06/30/24 7.0%. PHQ-9/IVY-7 both 0 today. He has not trialed citalopram yet. HPI Comments History of Present Illness Details Documentation assistance for Chuy Vitale MD, was provided by Hector Cameron,? Data Analytics Chief Scientist on 06/30/2024 at 11:19 AM EST. I, Dr. Vitale, have read, observed, and verified documentation. ?? [facility] Medical History Arthritis Diabetes Palpitations Sinusitis Surgical History History of cholecystectomy History of knee surgery Family History Mother Hypertension Thyroid condition Father Hypertension High cholesterol Cardiovascular disease Maternal Grandmother Hypertension Paternal Grandmother Hypertension High cholesterol Cardiovascular disease Cancer Alcoholism Maternal Grandfather Hypertension Paternal Grandfather Hypertension High cholesterol Cardiovascular disease Social History Housing: House Alcohol intake: never Patient Tobacco Use Status: Never used Tobacco e-Cigarette/Vaping Use: Never Used Second Hand Smoke Exposure: No service: No 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al status: employed 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: [employer] 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al exposures/hazards: Yes Cognitive needs: No Hearing needs: No Vision needs: No Questionnaire PHQ-9 Over the last 2 weeks, how often have you been bothered by any of the following problems? 1. Little interest or pleasure in doing things: not at all 2. Feeling down, depressed, or hopeless: not at all 3. Trouble falling or staying asleep, or sleeping too much: not at all 4. Feeling tired or having little energy: not at all 5. Poor appetite or overeating: not at all 6. Feeling bad about yourself - or that you are a failure or have let yourself or your family down: not at all 7. Trouble concentrating on things, such as reading the newspaper or watching television: not at all 8. Moving or speaking so slowly that other people could have noticed. Or the opposite - being so fidgety or restless that you have been moving around a lot more than usual: not at all 9. Thoughts that you would be better off or of hurting yourself in some way: not at all Total score: 0 Source: Developed by Drs. Nain Euceda, Valencia Perez, Joao Vogt and colleagues, with an educational bridger from [employer]. Thrive Questionnaire Date Thrive assessed: 06/23/24 I am a: Patient What is your living situation today?: I have a steady place to live Within the past 12 months, did the food you bought not last and you didn't have the money to get more?: Never true Within the past 12 months, did you worry whether your food would run out before you got money to buy more?: Never true Do you have trouble paying for medicines?: No Do you have trouble getting transportation to medical appointments?: No Do you have trouble paying your heating and electricity bill?: No Do you have trouble taking care of your child, family member or friend?: No Do you have trouble with day-to-day activities such as bathing, preparing meals, shopping, managing finances, etc.?: No Are you currently unemployed and looking for a job?: No Are you interested in more education?: No Please select the resources that you would like help with: None Currently or been in a relationship where the following occur: No concerns reported THRIVE Score: 0 AUDIT C Alcohol Use Questionnaire (AUDIT-C) 1. How often do you have a drink containing alcohol?: Never 3. How often do you have six or more drinks on one occasion?: Never Total Score: 0 IVY-7 AMB Questionnaire IVY-7 Date IVY - 7 assessed: 05/19/24 Feeling nervous, anxious, or on edge: 0 = Not at all Not being able to stop or control worryin = Not at all Worrying too much about different things: 0 = Not at all Trouble relaxin = Not at all Being so restless that it is hard to sit still: 0 = Not at all Becoming easily annoyed or irritable: 0 = Not at all Feeling afraid as if something awful might happen: 0 = Not at all Total IVY-7 score (0-4 normal; 5-9 mild; 10-14 moderate; 15-21 severe): 0 Source: Developed by Drs. Nain Euceda, Valencia Perez, Joao Vogt and colleagues, with an educational bridger from [employer]. Review of Systems Const Denies chills, Denies fatigue, Denies fever(s), Denies headache(s) and Denies weakness ENT Denies dizziness and Denies headache(s) Card Denies chest pain, Denies lightheadedness, Denies dyspnea and Denies other (Palpitations) Resp Denies cough, Denies dyspnea, Denies wheezing and Denies other ( shortness of breath) Musc Denies numbness and Denies tingling Neuro Denies dizziness, Denies headache(s), Denies numbness, Denies tingling, Denies paresthesias and Denies weakness Psych Denies anxiety and Denies depression Endo Denies fatigue Aller/Immun Denies wheezing Physical exam (Primary Care) Vital Signs: Last Vital Signs Temp 97.7 F 06/30/24 11:08 Pulse 68 06/30/24 11:08 Resp 14 06/30/24 11:08 BP 110/70 06/30/24 11:08 Pulse Ox 96 06/30/24 11:08 Oxygen Delivery Method Room Air 06/30/24 11:08 BMI result Body Mass Index 33.7 Tobacco/Smoking Status: Tobacco use Status Tobacco use date assessed 05/19/24 06/30/24 11:08 Patient Tobacco Use Status Never used Tobacco 06/30/24 11:08 e-Cigarette/Vaping Use Never Used 06/30/24 11:08 PHQ-9: PHQ-9 Score PHQ-9: Total score 0 06/30/24 11:19 Thrive Assessment: Date of Thrive Assessment Date Thrive assessed 06/23/24 06/30/24 11:08 Currently or been in a relationship where the following occur: No concerns reported Const General: no acute distress and well developed Nutritional Appearance: well nourished Orientation/consciousness: patient oriented x3 [facility] Head: Yes normocephalic and Yes atraumatic Eyes General: appearance normal, both eyes and all related structures Pupils: Equal, round and reactive pupils present EOM: EOMs intact bilaterally Resp Effort & Inspection: normal respiratory effort Auscultation: clear to auscultation bilaterally Cardio Rate: regular rate Rhythm: regular rhythm Heart sounds: S1 normal heart sound present, S2 normal heart sound present, no gallops, no murmurs and no rubs Neuro General: patient oriented x3 and gait normal Cranial nerves: Yes Equal, round and reactive pupils present Psych Affect: normal affect Coding Level of Care Code Est Pt Level 4 (68939) Diagnoses Diabetes E11.9 Screening for prostate cancer Z12.5 Anxiety F41.9 Assessment & Plan Assessment & Plan (1) Diabetes: Code(s): E11.9 - Type 2 diabetes mellitus without complications Category: Medical Plan: A1c?was?high?at?his?last?visit?but?we?adjusted?his?semaglutide?on?that?day. He?knows?that?his?blood?sugars?have?been?well?controlled?since?then. A1c?today: ?7.0%.??Like?not?yet?at?steady?state?so?hopefully?will?continue?to?improve?on?current?regimen.??No?changes?to?medication?regimen?today Follow-up?with?endocrinology?as?recommended (2) Screening for prostate cancer: Code(s): Z12.5 - Encounter for screening for malignant neoplasm of prostate Category: Medical Plan: PSA?was?within?normal?limits.??Will?continue?annual?screening (3) Anxiety: Code(s): F41.9 - Anxiety disorder, unspecified Category: Medical Plan: This?has?improved.??Patient?did?not?try?citalopram?but?says?he?has?been?working?improving?his?health Will?let?know?if?symptoms?worsen.
[2024-06-30 11:08] VITALS: BP 110/70; PULSE 68; RESP 14; TEMP 36.5; O2SAT 96; BMI 33.7
== END 2024-06-30 11:48 | disposition home or self-care (01) ==
PROVIDERS: PCP Family Medicine; Visit Provider Family Medicine
DX: E11.9 Type 2 diabetes mellitus without complications (principal); Z12.5 Encounter for screening for malignant neoplasm of prostate; F41.9 Anxiety disorder, unspecified

== ENCOUNTER → 2024-06-30 10:17 | Outpatient (BNVA) | payer OTHER, SELFPAY | PROVIDERS: PCP Family Medicine; Visit Provider Family Medicine | DX: E11.9 Type 2 diabetes mellitus without complications (principal); F41.9 Anxiety disorder, unspecified | CPT/HCPCS: 83036; 96127 ==

== ENCOUNTER 2024-08-14 12:36 | Outpatient (REF) | payer OTHER, SELFPAY ==
--- NOTE | ~2024-08-14 | FL_ITS ---
EXAMINATION: Fluoroscopy-guided Right hip steroid injection. CLINICAL INDICATION: Severe right hip pain. COMPARISON: None. TECHNIQUE: Following explaining fluoroscopy-guided right hip steroid injection procedure, benefits in risk, a written consent was obtained. Patient was placed supine on fluoroscopy table and marker was placed on the skin to injection site. The area marked was cleaned and draped in usual sterile manner with 2% chlorhexidine solution. 1% lidocaine was injected into side. A 22-gauge spinal needle was then advanced from marked site to the lateral aspect of the femoral head. The 4 mL of iodine contrast was injected and the right hip joint was opacified. A single image was obtained. Subsequently 80 mg of the pole and 1% of lidocaine as a 6 mL of makes constipation was injected and needle withdrawn. Patient tolerated procedure extremely well. Simple bandage applied at the puncture site. FINDINGS/ FL/FL Guided Asp Inj Major Jt RT IMPRESSION: There is a severe loss of right hip joint space with large periarticular spurring and subchondral cystic changes. The soft tissues are normal. Successful fluoroscopy guided right hip steroid injection performed without immediate complications. Fluoroscopy time: 1 minute 8 seconds. Dose area product: 2173 mGy/cm. Electronically signed by: Gonzalo Guzman MD 08/14/2024 06:06 PM EDT
[2024-08-14] MEDS: methylPREDNISolone acetate 80 MG VIAL INTRAARTIC (13:42)
[2024-08-14] MEDS: iohexoL 300 MG/ML 50 ML INFUS..BTL 10 ML INTRAARTIC (13:45)
== END 2024-08-14 12:37 | disposition home or self-care (01) ==
LOC: HO.XRAY 12:36
PROVIDERS: PCP Family Medicine; Visit Provider Physician Assistant
DX: M16.11 Unilateral primary osteoarthritis, right hip (principal)
CPT/HCPCS: 20610; 77002; J1010; Q9967

== ENCOUNTER → 2024-08-14 12:38 | Outpatient (BNV) | payer OTHER, SELFPAY | PROVIDERS: PCP Family Medicine; Visit Provider Radiology Diagnostic Radiology | DX: M16.11 Unilateral primary osteoarthritis, right hip (principal) | CPT/HCPCS: 20610; 77002 ==

== ENCOUNTER 2024-12-15 09:24 | Outpatient (AMB) | payer OTHER, SELFPAY ==
--- OUTSIDE RECORDS SUMMARY | 2024-12-15 09:31 | XMS_ITS | Clinical Summary ---
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 04/24/20 19 Active blood sugar diagnostic Strp strips 1 each by Miscellaneous route 6 (six) times a day. Active clotrimazole-bet amethasone (LOTRISONE) cream Apply topically 2 (two) times a day as needed. 09/09/19 20 Active ACCU-CHEK FASTCLIX LANCET DRUM Misc USE DIRECTED. TEST 5 TIMES/DAY 09/19/19 20 Active ACCU-CHEK FASTCLIX LANCING DEV Kit USE DIRECTED. TO TEST BLOOD SUGARS UP TO 5 TIMES A DAY 09/06/19 20 Active rosuvastatin (CRESTOR) 5 MG tabletIndication s:Hyperlipidemia LDL goal <100 Take 1 tablet (5 mg total) by mouth daily. 90 tablet 3 10/11/19 20 Active Additional Information Patient taking differently:5 mg Oral2 times weekly, Reported on 05/02/2021 TRULICITY 1.5 mg/0.5 mL subcutaneous injection 04/08/20 21 Active valACYclovir (VALTREX) 1000 MG tablet 04/17/20 21 Active acyclovir (ZOVIRAX) 5 % ointment 05/13/20 21 Active Active Problems Problem Noted Date Diagnosed Date Chest pain 05/02/2021 Assessment & Plan (05/02/2021 3:19 PM EST): Given he is no further chest pain now with activity and he had an excellent quality exercise treadmill test without any chest pain during the stress test, will hold on any further treatment Palpitations 05/02/2021 Assessment & Plan (08/11/2021 2:07 PM EDT): He does not have a significant burden of PACs or PVCs.His echocardiogram was normal and did not show any structural heart disease. If he were to develop a significant burden of PACs or PVCs we could consider metoprolol as he has done in the past but for now we will hold off. He is encouraged to follow heart healthy diet, exercise and work with his other physicians to maintain good glucose control. Assessment & Plan (05/02/2021 3:20 PM EST): Given his frequent palpitations and PACs, I know we could do a long-term monitor such as a 2-week monitor to actually document whether he is having other arrhythmias besides PACs such as SVT, atrial fibrillation, atrial flutter. I also noted we should do an echocardiogram to rule a structural heart disease. I noted if both these confirm that he has a normal heart and just frequent PVCs and PACs, we could consider metoprolol as needed which she has done in the past Type 2 diabetes mellitus wit hout complication, without long-term current use of insulin 07/10/2019 Assessment & Plan (10/11/2019 12:45 PM EDT): Controlled. The hemoglobin A1c 6.5% he should continue metformin and Jardiance. No changes. Assessment & Plan (07/10/2019 11:28 AM EST): Uncontrolled. His hemoglobin A1c in the office today was 7.1%. He finds it difficult to control glycemic levels because he travels for work. Sometimes he cannot get the best diet. Unfortunately he cannot tolerate metformin at higher doses. Glipizide can cause beta cell apoptosis so I rather use another agent such as an SGLT2 inhibitor. We did discuss GLP-1 agonists, Actos, and DPP 4 inhibitors. Personally I prefer GLP-1 agonist but the patient rather not do injections. So SGLT2 inhibitors is good medication that will improve glycemic control and also cause some weight loss. He has cardiovascular benefits, benefits for renal insufficiency reversal and also prevention of hospitalization for heart failure. Because the patient does not have heart failure. He has good glomerular filtration rate of 84 mg/dL so he has no contraindications he has no peripheral vascular disease. I did inform him that this medication is associated with polyuria and yeast infections. Is more common in men who are uncircumcised. He must drink plenty of water because in their initial 6 weeks there is a decrease in renal function that completely resolves with time as long as he hydrates himself. Over the next 5 years they will be an improvement in the glomerular filtration rate. So we will start out with the smallest dose 100 mg of Invokana which you should take fasting in the morning. Again he must hydrate himself and in order to prevent genital mycotic infections he should use proper hygiene that means showering daily. Upon entering the prescription for Invokana it appears that his insurance does not cover this medication so I have prescribed Jardiance 10 mg instead. Jardiance has not been yet found to prevent hospitalization for heart failure or improve renal function. It does have prevention for cardiovascular . He may still use proper hygiene and hydrate himself. Hyperlipidemia LDL goal <100 07/10/2019 Assessment & Plan (05/02/2021 3:18 PM EST): Continue Crestor Assessment & Plan (10/11/2019 12:45 PM EDT): Unfortunately he is having myalgias with the use of pravastatin although he has an excellent LDL 67 mg/dL. At this point will stop pravastatin and prescribe Crestor 5 mg and see if this has less adverse effects. I did advise him that if he still having myalgias with Crestor then he should decrease it to 3 times a week and see. Hopefully this medication will be covered by his healthcare coverage. He should repeat a lipid panel in 3 months time. Assessment & Plan (07/10/2019 11:29 AM EST): Uncontrolled his LDL is 121 mg/dL. He has family history of cardiovascular disease he is obese and also diabetic so his LDL should be less than 100. He has not had any cardiovascular problems yet so we need to decrease the LDL below 100 I will prescribe pravastatin 10 mg he should repeat the lipid panel in 3 months time. This is a very gentle medication and 10 mg may not be enough but we start with the smallest dose and see if he can tolerate the medication. Family History Medical History Relation Comments Coronary artery disease Father Thyroid disease Mother Relation Status Comments Father Mother Alive Social History Tobacco Use Types Packs/Day Years Used Date Smoking Tobacco: Never Smokeless Tobacco: Never Alcohol Use Standard Drinks/Week Comments Not Currently 0 (1 standard drink = 0.6 oz pur e alcohol) Education Answer Date Recorded Are you interested in more education? Not on carlos e 09/25/2022 Are you concerned about learning? Not on file 09/25/2022 No 09/25/2022 No 09/25/2022 Digital Access Answer Date Recorded No 10/26/2022 No 10/26/2022 No 10/26/2022 Reliable internet access at home? Not on file 10/26/2022 Device with a working camera? Not on file Sex and Gender Information Value Date Recorded Sex Assigned at Not on file Legal Sex Male 9:37 PM EDT Gender Identity Not on file Sexual Orientation Not on file Last Filed Vital Signs Vital Sign Reading Time Taken Comments Blood Pressure 122/72 08/11/2021 1:28 PM EDT Pulse 58 08/11/2021 1:28 PM EDT Temperature - - Respiratory Rate - - Oxygen Saturation 97% 08/11/2021 1:28 PM EDT Inhaled Oxygen Concentration - - Weight 105.1 kg (231 lb 12.8 oz) 08/11/2021 1:28 PM EDT Height 180 cm (5' 10.87 ) 08/11/2021 1:28 PM EDT Body Mass Index 32.45 08/11/2021 1:28 PM EDT Plan of Treatment Health Maintenance Due Date Last Done Comments BLOOD PRESSURE 1968 DEPRESSION SCREENING 1980 HEPATITIS C SCREENING 1986 HIV ONE-TIME SCREENING (18-6 5 YEARS) 1986 PNEUMOCOCCAL VACCINES (50+ years) (2 of 2 - PCV) 07/14/2013 07/14/2012 COLOGUARD 2013 COLONOSCOPY 2013 COLORECTAL CANCER SCREENING 2013 FIT TEST 2013 FOBT 2013 SIGMOIDOSCOPY 2013 VIRTUAL COLONOSCOPY 2013 Adult Td,Tdap Booster 11/05/2016 11/05/2006 ZOSTER VACCINES (1 of 2) 2018 DIABETIC EYE EXAM 07/10/2019 URINE MICROALBUMIN/CREATININ E RATIO 07/10/2019 HEMOGLOBIN A1C 04/05/2020 10/04/2019, 07/10/2019 CREATININE LEVEL 10/03/2020 10/04/2019 COVID-19 VACCINE (2023-2 5 season) 2024 08/13/2020, 07/23/2020 SMOKING STATUS SCREENING (On ce After 26 Yrs) Completed 08/11/2021 HEPATITIS A VACCINES Aged Out No long er eligible based on patient's age to complete this topic HIB VACCINES Aged Out No longer eligi ble based on patient's age to complete this topic MENINGOCOCCAL VACCINES (ACWY) Aged Out No longer eligible based on patient's age to complete this topic MENINGOCOCCAL VACCINES (B) Aged Out N o longer eligible based on patient's age to complete this topic Medical Devices Not on file Procedures Procedure Name Priority Date/Time Associated Diagnosis Comments HEMOGLOBIN A1C Routine 10/04/2019 8:23 AM EDT Type 2 diabetes mellitus without complication, without long-term current use of insulin BASIC METABOLIC PANEL Routine 10/04/2019 8:23 AM EDT Type 2 diabetes mellitus without complication, without long-term current use of insulin from Last 3 Months or Most Recently Relevant to Health Maintenance Results * (ABNORMAL) Hemoglobin A1c (10/04/2019 8:23 AM EDT) HEMOGLOBIN A1C 6.5(H) 4.3 - 5.8 % [facility] Blood 10/04/2019 8:23 AM EDT 10/04/2019 10:07 AM EDT us Dru Garcia DO LAB BLOOD ORDERABLES Final Resul t [facility] [address] [place] [address] * (ABNORMAL) Basic metabolic panel (10/04/2019 8:23 AM EDT) SODIUM 145 133 - 146 mmol/L [facility] CHLORIDE 106 96 - 108 mmol/L [facility] POTASSIUM 5.2(H) 3.3 - 5.1 mmol/L [facility] CO2 28 21 - 35 mmol/L [facility] BUN 18 6 - 19 mg/dL [facility] CREATININE 1.00 0.5 - 1.5 mg/dL [facility] GLUCOSE 143(H) 70 - 99 mg/dL [facility] CALCIUM 9.2 8.4 - 10.3 mg/dL [facility] EGFR 87 >59 mL/min/1.7 3m2 [facility] Comment:If patient is black, multiply result by 1.159. Estimated glomerular filtration rate calculated using the CKD-EPI equation. 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 It is not the complete legal health record.[facility]
--- OUTSIDE RECORDS SUMMARY | 2024-12-15 09:31 | XMS_ITS | Referral Summary ---
Author Organization [facility] Address [address] [place] [address] Care Team Providers Care Environmental Services Assistant Name Role Phone Chuy Vitale MD Primary Care Provider [phone] Encounters Date Type Department Care Team Description 12/04/2024 Orders Only [facility] [address] [place] [phone] Optical Dispenser: Mirtha Heart MD 11/24/2024 Refill [facility] [address] [place] [phone] Optical Dispenser: Mitesh Mccollum MD 11/15/2024 Refill [facility] [address] [place] [phone] Optical Dispenser: Mitesh Mccollum MD 09/30/2024 myChart Message [facility] [address] [place] [phone] Optical Dispenser: Mitesh Mccollum MD lab 09/30/2024 Results Follow-Up [facility] [address] [place] [phone] Optical Dispenser: Mitesh Mccollum MD 09/30/2024 Telephone [facility] [address] [place] [phone] Optical Dispenser: Mitesh Mccollum MD 09/30/2024 Orders Only [facility] [address] [place] [address] Optical Dispenser: Mitesh Mccollum MD Polycythemia (Primary Dx) 09/27/2024 Refill [facility] [address] [place] [address] Optical Dispenser: Mitesh Mccollum MD 09/23/2024 Refill [facility] [address] [place] [address] Optical Dispenser: Mitesh Mccollum MD from Last 3 Months Allergies Active Allergy Reactions Criticality Noted Date Comments Metformin Diarrhea 04/17/2022 Medications acyclovir (ZOVIRAX) 5 % ointment 05/13/20 21 Active albuterol (PROAIR HFA,VENTOLIN HFA) 90 mcg inhaler 2 puffs every 4 hours as needed. 02/22/20 22 Active Accu-Chek Guide Me Glucose Mtr misc USE DIRECTED. 03/24/20 22 Active clotrimazole-betam ethasone (LOTRISONE) cream SMARTSIG:T opical Morning-Ev ening 02/25/20 22 Active famotidine (PEPCID) 20 mg tablet Take 20 mg by mouth 2 times a day. 02/22/20 22 Active valACYclovir (VALTREX) 1 gram tablet Take 1,000 mg by mouth every 12 hours. prn 05/25/20 21 Active tamsulosin (FLOMAX) 0.4 mg capsule Take 0.4 mg by mouth once a day. Active VanishPoint Tuberculin Syringe 1 mL 25 gauge x 5/8 syringe One a week 50 each 1 04/03/20 24 Active semaglutide (Ozempic) 1 mg/dose (4 mg/3 mL) pen injectorIndication s:Type 2 diabetes mellitus without complication, without long-term current use of insulin (HCC) Inject 0.75 mL (1 mg total) under the skin every 7 days. 3 mL 11 28/20 25 Active BD PrecisionGlide 25 gauge x 1 needle Use 1 weekly 50 each 08/26/19 25 Active Accu-Chek Guide test strips test strip Use to test 3 times daily. 300 strip 08/26/19 25 Active Accu-Chek Fastclix Lancet Drum misc Use to test 3 times daily. 300 each 3 08/26/19 25 Active testosterone enanthate (DELATESTRYL) 200 mg/mL injection INJECT 0.2 ML INTO THE MUSCLE WEEKLY 5 mL 11/25/19 25 Active glipiZIDE XL (GLUCOTROL XL) 5 mg tablet Take 1 tablet (5 mg total) by mouth once a day. 90 tablet 11/28/19 25 Active testosterone enanthate (DELATESTRYL) 200 mg/mL injection Inject 0.2 mL or 40 mg weekly 5 mL 10/01/19 025 Discontinued Active Problems Problem Noted Date Diagnosed Date Polycythemia 10/25/2023 Benign prostatic hyperplasia with nocturia 04/20 Low testosterone in male 04/20/2022 Assessment & Plan (08/31/2024 9:35 PM EDT): His testosterone of 544 ng/dL 2 days after his last injection is reasonable. However, he remains polycythemic. I will discuss with Benji the need to either reduce his dose of IM testosterone or transition to a transdermal preparation. He is using single dose vials for 4 injections and I will review multidose vial options with [facility]. Assessment & Plan (10/25/2023 1:43 PM EDT): [...] complication, without long-term current use of insulin 04/17/2022 Assessment & Plan (08/31/2024 9:33 PM EDT): His A1c of 6.3% and glucose of 120 mg/dL today indicates his diabetes is under good control. The results of his blood sugars from home are good. Assessment & Plan (10/25/2023 1:39 PM EDT): [...] time. Mixed hyperlipidemia 04/17/2022 Assessment & Plan (08/31/2024 9:35 PM EDT): He is not currently taking a statin, but should be on one. Assessment & Plan (10/25/2023 1:42 PM EDT): [...] Sign Reading Time Taken Comments Blood Pressure 115/78 08/25/2024 8:49 AM EDT Pulse 88 08/25/2024 8:49 AM EDT Temperature - - Respiratory Rate - - Oxygen Saturation - - Inhaled Oxygen Concentration - - Weight 105.7 kg (233 lb) 08/25/2024 8:49 AM EDT Height 180.3 cm (5' 11 ) 08/25/2024 8:49 AM EDT Body Mass Index 32.5 08/25/2024 8:49 AM EDT Plan of Treatment Upcoming Encounters Date Type Department Care Team (Late st Contact Info) Description 03/02/2025 3:30 PM EDT Office Visit [facility] [address] [place] [phone] Optical Dispenser: Mitesh Mccollum MD [address] [place] [phone] (Work) Procedures * Due to [place] state law, this organization might not be sharing negative HIV tests. Procedure Name Priority Date/Time Associated Diagnosis Comments HM DIABETES EYE EXAM Routine 12/04/2024 1:45 PM EDT MICROALBUMIN, RANDOM URINE WITH CREATININE Routine 08/25/2024 10:16 AM EDT Type 2 diabetes mellitus without complication, without long-term current use of insulin POCT GLYCOSYLATED HEMOGLOBIN (HGB A1C) Routine 08/25/2024 8:32 AM EDT COMPREHENSIVE METABOLIC PANEL, OUTSIDE LAB Routine 02/05/2023 from Last 3 Months or Most Recently Relevant to Health Maintenance Results * Due to [place] state law, this organization might not be sharing negative HIV tests. * HM Eye Exam, Diabetic (12/04/2024 1:45 PM EDT) us Unknown Provider MD HEALTH MAINTENANCE Final Res ult * Microalbumin, Random Urine with Creatinine (08/25/2024 10:16 AM EDT) Microalbumin, Urine <2.0 mg/dL 08/25/2024 12:04 PM EDT [facility] Creatinine, Urine 115 22 - 328 mg/dL 08/25/2024 12:04 PM EDT [facility] Microalb/Creat Ratio, Random Urine 08/25/2024 12:04 PM EDT [facility] Comment: < 1.0 mcg/mgCr Microalbumin Reference Range: Normal <30 mcg/mg Creatinine Microalbuminuria 30-300 mcg/mg Creatinine Clinical Albuminuria >300 mcg/mg Creatinine Reference: ADA Guideline. Diabetes Care. 2004;27 (suppl 1) Urine Voided urine specimen / Unknown Non-Blood Collection / Unknown 08/25/2024 10:16 AM EDT 08/25/2024 11:23 AM EDT us Mitesh Landrum MD LAB URINE ORDERABLES Final Re sult [facility] [address] [place] [address], [place] * (ABNORMAL) POCT Glycosylated Hemoglobin (HGB A1C), interfaced (08/25/2024 8:32 AM EDT) Hemoglobin A1C, POCT 6.3(H) <=5.6 % 08/25/2024 8:58 AM EDT [facility] Comment: A1C Recommendation for Non- Adults with Diabetes: <7.0% ADA 2011 Standards of Medical Care in Diabetes Blood 08/25/2024 8:32 AM EDT 08/25/2024 8:58 AM EDT us Mitesh Landrum MD LAB POCT ORDERABLES - DEVICE Final Result [facility] [address] [place] [address], [place] * Comprehensive Metabolic Panel, Outside Lab (02/05/2023) Sodium 140 mmol/L Potassium 4.0 Creatinine 1.0 mg/dL AST 19 U/L ALT 23 U/L Blood Structure of peripheral vein / Unknown 02/05/2023 us Unknown Provider LAB BLOOD ORDERABLES Final R esult from Last 3 Months or Most Recently Relevant to Health Maintenance Insurance [employer] Care Teams Environmental Services Assistant Relationship Specialty Start Date End Date Chuy Vitale MD [address] [place] [address] PCP - General Family Medicine 10/19/22
--- NOTE | 2024-12-15 09:33 | A.OFFPC_ITS ---
Vital Signs 12/15/24 09:42 Height 5 ft 11 in Weight 237 lb BMI 33.1 BP 110/70 Blood Pressure Location Lt brachial Position Sitting Respiration 14 Pulse 80 Pulse Source Pulse Oximeter Temp 98.5 F Temp Source Oral Pulse Oximetry (%) 95 Oxygen Delivery Method Room Air Intake Visit Reasons: F/u anxiety, labs Intake Note: patient is scheduled for anxiety and dm follow up Photogrammetric Stereo Compiler Required: No Allergies No Known Allergies Allergy (Verified 12/15/24 09:41) Medication List - Last Reconciled 12/15/24 by Chuy Vitale MD albuterol sulfate 90 mcg/actuation 2 puffs inhalation Q4-6H PRN [Maegan ] fluticasone propionate 50 mcg/actuation (Flonase Allergy Relief) 2 sprays intranasal QDAY glipizide ER 5 mg PO DAILY 30 days needle (disp) 25 gauge (BD PrecisionGlide) As directed [Pepcid ] semaglutide (Ozempic) 1 mg (0.75 mL) subcut QWEEK 28 days testosterone cypionate 50 mg (0.5 mL) IM QWEEK 28 days Tobacco use date assessed: 05/19/24 Dental Screening Dental Screen Date: 05/19/24 HPI F/u anxiety, labs HPI Details 54 y/o male presents to f/u anxiety, lab s. No recent labs to review. Last A1c 06/30/24 7.0%. He is on semaglutide 1mg, glipizide 5mg daily. PHQ-9 4, IVY-7 0 today. Pt notes some shortness of breath. Denies any chest pain associated with this. HPI Comments History of Present Illness Details Documentation assistance for Chuy Vitale MD, was provided by Hector Cameron, [employer] Paralegal on 12/15/2024 at 9:49 AM MANN. I, Dr. Vitale, have read, observed, and verified documentation. [facility] Medical History Arthritis Diabetes Palpitations Sinusitis Surgical History History of cholecystectomy History of knee surgery Family History Mother Hypertension Thyroid condition Father Hypertension High cholesterol Cardiovascular disease Maternal Grandmother Hypertension Paternal Grandmother Hypertension High cholesterol Cardiovascular disease Cancer Alcoholism Maternal Grandfather Hypertension Paternal Grandfather Hypertension High cholesterol Cardiovascular disease Social History Housing: House Alcohol intake: never Patient Tobacco Use Status: Never used Tobacco e-Cigarette/Vaping Use: Never Used Second Hand Smoke Exposure: No service: No 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al status: employed 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: [employer] 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al exposures/hazards: Yes Cognitive needs: No Hearing needs: No Vision needs: No Questionnaire PHQ-9 Over the last 2 weeks, how often have you been bothered by any of the following problems? 1. Little interest or pleasure in doing things: not at all 2. Feeling down, depressed, or hopeless: not at all 3. Trouble falling or staying asleep, or sleeping too much: more than half the days 4. Feeling tired or having little energy: more than half the days 5. Poor appetite or overeating: not at all 6. Feeling bad about yourself - or that you are a failure or have let yourself or your family down: not at all 7. Trouble concentrating on things, such as reading the newspaper or watching television: not at all 8. Moving or speaking so slowly that other people could have noticed. Or the opposite - being so fidgety or restless that you have been moving around a lot more than usual: not at all 9. Thoughts that you would be better off or of hurting yourself in some way: not at all Total score: 4 Depression Screening Interpretation: Negative Depression Screening Done: Yes 02805 - PHQ-9 Billing: Yes Source: Developed by Drs. Nain Euceda, Valencia Perez, Joao Vogt and colleagues, with an educational bridger from [employer]. Thrive Questionnaire Date Thrive assessed: 06/23/24 I am a: Patient What is your living situation today?: I have a steady place to live Within the past 12 months, did the food you bought not last and you didn't have the money to get more?: Never true Within the past 12 months, did you worry whether your food would run out before you got money to buy more?: Never true Do you have trouble paying for medicines?: No Do you have trouble getting transportation to medical appointments?: No Do you have trouble paying your heating and electricity bill?: No Do you have trouble taking care of your child, family member or friend?: No Do you have trouble with day-to-day activities such as bathing, preparing meals, shopping, managing finances, etc.?: No Are you currently unemployed and looking for a job?: No Are you interested in more education?: No Please select the resources that you would like help with: None Currently or been in a relationship where the following occur: No concerns reported THRIVE Score: 0 IVY-7 AMB Questionnaire IVY-7 Date IVY - 7 assessed: 12/15/24 Feeling nervous, anxious, or on edge: 0 = Not at all Not being able to stop or control worryin = Not at all Worrying too much about different things: 0 = Not at all Trouble relaxin = Not at all Being so restless that it is hard to sit still: 0 = Not at all Becoming easily annoyed or irritable: 0 = Not at all Feeling afraid as if something awful might happen: 0 = Not at all Total IVY-7 score (0-4 normal; 5-9 mild; 10-14 moderate; 15-21 severe): 0 Source: Developed by Drs. Nain Euceda, Valencia Perez, Joao Votg and colleagues, with an educational bridger from [employer]. IVY-7 Assessment Billing IVY-7 Assessment Tool: IVY-7 Assessment 12316 Review of Systems Const Denies chills, Denies fatigue, Denies fever(s), Denies headache(s) and Denies weakness ENT Denies dizziness and Denies headache(s) Card Reports dyspnea Resp Denies cough, Reports dyspnea, Denies wheezing and Denies other (shortness of breath) Musc Denies numbness and Denies tingling Neuro Denies dizziness, Denies headache(s), Denies numbness, Denies tingling and Denies weakness Psych Denies anxiety and Denies depression Endo Denies fatigue Aller/Immun Denies wheezing Physical exam (Primary Care) Vital Signs: Last Vital Signs Temp 98.5 F 12/15/24 09:42 Pulse 80 12/15/24 09:42 Resp 14 12/15/24 09:42 BP 110/70 12/15/24 09:42 Pulse Ox 95 12/15/24 09:42 Oxygen Delivery Method Room Air 12/15/24 09:42 BMI result Body Mass Index 33.1 Tobacco/Smoking Status: Tobacco use Status Tobacco use date assessed 05/19/24 12/15/24 09:33 Patient Tobacco Use Status Never used Tobacco 12/15/24 09:33 e-Cigarette/Vaping Use Never Used 12/15/24 09:33 PHQ-9: PHQ-9 Score PHQ-9: Total score 4 12/15/24 09:48 Depression Screening Interpretation: Negative Thrive Assessment: Date of Thrive Assessment Date Thrive assessed 06/23/24 12/15/24 09:33 Currently or been in a relationship where the following occur: No concerns reported Const General: well developed; No acute distress Nutritional Appearance: well nourished Orientation/consciousness: patient oriented x3 HENMT Head: Yes normocephalic and Yes atraumatic Eyes General: appearance normal, both eyes and all related structures Pupils: Equal, round and reactive pupils present EOM: EOMs intact bilaterally Resp Other: Coarse breath sounds Effort & Inspection: normal respiratory effort Neuro General: patient oriented x3 and gait normal Cranial nerves: Yes Equal, round and reactive pupils present Psych Affect: normal affect Coding Level of Care Code Est Pt Level 4 (44886) Diagnoses Diabetes E11.9 Anxiety F41.9 Shortness of breath R06.02 Additional Codes IVY-7 Assessment Billing - IVY-7 Assessment Tool: IVY-7 Assessment 83305 ([id number]) PHQ-9 - 40169 - PHQ-9 Billing: Yes ([id number]) Assessment & Plan Assessment & Plan (1) Diabetes: Code(s): E11.9 - Type 2 diabetes mellitus without complications Category: Medical Plan: A1c 7.0%. Fair control. Goal is less than 7.0% No change to current medication regimen Encouraged a diet lower in sugars and starches (2) Anxiety: Code(s): F41.9 - Anxiety disorder, unspecified Category: Medical Plan: Patient has a history of anxiety which was improved/resolved at last office visit. IVY-7 negative today. Patient says that he currently does not have any anxiety though he does seem anxious regarding his health conditions. (3) Shortness of breath: Code(s): R06.02 - Shortness of breath Category: Medical Plan Patient notes some shortness of breath with exertion. He also notes some bronchial and laryngeal tightness and discomfort which is worsened when wakes up. He took some Pepcid in this improved his symptoms SaO2 is slightly decreased at 95% Possible GERD and microaspiration flat.. Will have him trial Pepcid at bedtime Check chest x-ray Patient is also concerned regarding some outside labs showing an elevation in his H&H. Will check labs including CBC Patient is on testosterone which could cause a secondary polycythemia. Hypoxia and can also cause secondary anemia but I think given this is a very mild decrease in his oxygen saturation at his testosterone would be a likely cause Will 1st recheck CBC and lab work. Orders: Orders Comprehensive [place]. Panel Fast Today R06.02 - Shortness of breath, Z00.00 - Encounter for general adult medical examination without abnormal findings IRON PROFILE Today R06.02 - Shortness of breath XR chest 2V Today R06.02 - Shortness of breath AMB EKG-In Office Today R06.02 - Shortness of breath Complete Blood Count Auto Diff Today R06.02 - Shortness of breath, Z00.00 - Encounter for general adult medical examination without abnormal findings Reticulocyte Count Today R06.02 - Shortness of breath TSH reflex Free T4 Today R06.02 - Shortness of breath, Z00.00 - Encounter for general adult medical examination without abnormal findings Vitamin B12 and Folate Today E53.8 - Deficiency of other specified B group vitamins, R06.02 - Shortness of breath Medications: New famotidine 40 mg PO BEDTIME 30 tabs 0RF 30 days
[2024-12-15 09:42] VITALS: BP 110/70; PULSE 80; RESP 14; TEMP 36.9; O2SAT 95; BMI 33.1
== END 2024-12-15 10:18 | disposition home or self-care (01) ==
LOC: HO.HMCFM 09:25
PROVIDERS: PCP Family Medicine; Visit Provider Family Medicine
DX: E11.9 Type 2 diabetes mellitus without complications (principal); F41.9 Anxiety disorder, unspecified; R06.02 Shortness of breath

== ENCOUNTER 2024-12-15 09:24 | Outpatient (REF) | payer OTHER, SELFPAY ==
--- NOTE | ~2024-12-15 | XR_ITS ---
EXAMINATION: XR CHEST CLINICAL INFORMATION: R06.02 - Shortness of breath COMPARISON: None available. TECHNIQUE: 2 views of the chest were obtained. FINDINGS: The cardiac, hilar, and mediastinal contours are normal. The lungs are clear bilaterally. There is no pneumothorax or pleural effusion. There is no focal osseous or soft tissue abnormality. There are cholecystectomy clips noted. XR/XR chest 2V IMPRESSION: Normal chest. Electronically signed by: Robert Hung MD 12/15/2024 02:27 PM EDT
== END 2024-12-15 09:25 | disposition home or self-care (01) ==
LOC: HO.HMGCX 09:24
PROVIDERS: PCP Family Medicine; Visit Provider Family Medicine
DX: R06.02 Shortness of breath (principal); E11.9 Type 2 diabetes mellitus without complications; F41.9 Anxiety disorder, unspecified
CPT/HCPCS: 71046; 96127

== ENCOUNTER 2024-12-15 10:48 | Outpatient (REF) | payer OTHER, SELFPAY ==
[2024-12-15 13:57] LABS: MANUAL DIFF FLAG NO
[2024-12-15 14:04] LABS: Hematocrit 52.8 % (42.0-52.0); Hemoglobin 17.5 g/dl (14.0-18.0); Imm Gran Abs Auto 0.02 X10*3/uL (0.00-0.03); Imm Gran Pct Auto 0.3 % (0.0-0.4); Lymphocytes Absolute Auto 1.8 X10*3/uL (1.2-4.9); Mean Corpuscular HGB Conc 33.1 g/dl (31.0-36.0); Mean Corpuscular Hemoglobin 28.3 pg (27.0-33.0); Mean Corpuscular Volume 85.4 fL (80.0-98.0); NRBC Abs Auto 0.000 X10*3/uL (0.0-0.012); NRBC Pct Auto 0.0 /100WBC (0.0-0.2); Platelet Count 251 X10*3/uL (160-400); Red Blood Count 6.18 X10*6/uL (4.60-5.80); Reticulocytes Absolute 0.101 X10*6/uL (0.026-0.095); White Blood Count 7.7 X10*3/uL (4.8-10.8)
[2024-12-15 14:10] LABS: Hemoglobin A1C 253.6762 umol/L; Total Hemoglobin (HGBA1C) 4534.6469 umol/L
[2024-12-15 14:23] LABS: Alanine Aminotransferase 29 U/L (0-40); Albumin Level 4.4 g/dL (3.5-5.0); Alkaline Phosphatase 117 U/L (39-117); Anion Gap 12 (12-20); Aspartate Amino Transferase 27 U/L (5-37); Blood Urea Nitrogen 18 mg/dL (9-16); Calcium 8.9 mg/dL (8.4-10.2); Carbon Dioxide 27 mmol/L (22-29); Chloride 106 mmol/L (96-108); Estimated Glomerular Filt Rate > 60; Iron 85 mcg/dL (45-160); Percent Iron Saturation 29 % (15-50); Potassium 4.5 mmol/L (3.3-5.1); Sodium 140 mmol/L (135-145); Total Iron Binding Capacity 297 mcg/dL (228-428); Total Protein 7.4 g/dL (6.5-8.0); Unsaturated Iron Binding 212 ug/dL
[2024-12-15 14:47] LABS: Folate 6.5 ng/mL (> or = 4.0); Vitamin B12 326 pg/mL (200-900)
== END 2024-12-15 10:49 | disposition home or self-care (01) ==
LOC: HO.WFDLDS 10:48
PROVIDERS: Visit Provider Family Medicine
DX: Z00.00 Encounter for general adult medical examination without abnormal findings (principal); R06.02 Shortness of breath; E53.8 Deficiency of other specified B group vitamins; R73.01 Impaired fasting glucose
CPT/HCPCS: 36415; 80053; 82607; 82746; 83036; 83540; 84443; 85025; 85045

== ENCOUNTER → 2024-12-15 14:17 | Outpatient (BNV) | payer OTHER, SELFPAY | PROVIDERS: PCP Family Medicine; Visit Provider Radiology Diagnostic Radiology | DX: R06.02 Shortness of breath (principal) | CPT/HCPCS: 71046 ==

== ENCOUNTER 2024-12-27 17:20 | Outpatient (AMB) | payer OTHER, SELFPAY ==
--- NOTE | 2024-12-27 17:18 | A.OFFPC_ITS ---
Intake Visit Reasons: f/u chest x-ray, labs Allergies No Known Allergies Allergy (Verified 12/27/24 17:18) Tobacco use date assessed: 05/19/24 Dental Screening Dental Screen Date: 05/19/24 HPI f/u chest x-ray, labs HPI Details 54 y/o male presents to f/u chest x-ray for concerns regarding some shortness of breath and chest discomfort. Chest x-ray 12/15/24 was fine. Labs drawn 12/15/24. Reviewed labs with pt. Elevated RBC at 6.18. Hct 52.8%. A1c 7.3%. Pt notes he feels his shortness of breath is about the same. He continues to describe a strange feeling of air stuck in his throat. [facility] Medical History Arthritis Diabetes Palpitations Sinusitis Surgical History History of cholecystectomy History of knee surgery Family History Mother Hypertension Thyroid condition Father Hypertension High cholesterol Cardiovascular disease Maternal Grandmother Hypertension Paternal Grandmother Hypertension High cholesterol Cardiovascular disease Cancer Alcoholism Maternal Grandfather Hypertension Paternal Grandfather Hypertension High cholesterol Cardiovascular disease Social History Housing: House Alcohol intake: never Patient Tobacco Use Status: Never used Tobacco e-Cigarette/Vaping Use: Never Used Second Hand Smoke Exposure: No service: No 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al status: employed 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: [employer] 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al exposures/hazards: Yes Cognitive needs: No Hearing needs: No Vision needs: No Questionnaire Thrive Questionnaire Date Thrive assessed: 06/23/24 IVY-7 AMB Questionnaire IVY-7 Date IVY - 7 assessed: 12/15/24 Source: Developed by Drs. Nain Euceda, Valencia Perez, Joao Vogt and colleagues, with an educational bridger from Dr. Tariff. Review of Systems Const Denies chills, Denies fatigue, Denies fever(s), Denies headache(s) and Denies weakness ENT Denies dizziness and Denies headache(s) Card Denies dyspnea Resp Denies cough, Denies dyspnea, Denies wheezing and Denies other (shortness of breath) Musc Denies numbness and Denies tingling Neuro Denies dizziness, Denies headache(s), Denies numbness, Denies tingling and Denies weakness Psych Denies anxiety and Denies depression Endo Denies fatigue Aller/Immun Denies wheezing Physical exam (Primary Care) Tobacco/Smoking Status: Tobacco use Status Tobacco use date assessed 05/19/24 12/27/24 17:19 Patient Tobacco Use Status Never used Tobacco 12/27/24 17:19 e-Cigarette/Vaping Use Never Used 12/27/24 17:19 Thrive Assessment: Date of Thrive Assessment Date Thrive assessed 06/23/24 12/27/24 17:19 Telehealth Telehealth Telehealth Platform: Telephone Location of provider rendering services: practice address Location of patient: address on file Patient Identification confirmed using: Name, : Yes Telehealth method: voice only Patient verbally consented to treatment: Yes Patient verbally consented to billing insurance company: Yes Patient informed of any privacy concerns related to visit: Yes Minutes spent on Phone/Video with Pt.: 7 Coding Level of Care Code Tele Est Pt Level 2 (89254) Diagnoses Shortness of breath R06.02 Assessment & Plan Assessment & Plan (1) Shortness of breath: Code(s): R06.02 - Shortness of breath Category: Medical Plan: Ongoing shortness of breath. Cardiac exam and EKG were unremarkable. Chest x-ray was normal. Trial of famotidine was unhelpful. Still has symptoms and his oxygen saturation was 95%. Will check pulmonary function testing and follow-up patient to determine next steps. He does note that he has had an albuterol inhaler in past. It is likely exp ired. Will give him a script for inhaler. Orders: Orders PFT pulmonary function test Today R06.02 - Shortness of breath Medications: Changed From albuterol sulfate 90 mcg/actuation 2 puffs inhalation Q4-6H PRN seasonal allergies To albuterol sulfate 90 mcg/actuation 2 puffs inhalation Q4-6H PRN 8.5 grams 3RF seasonal allergies 30 days
--- OUTSIDE RECORDS SUMMARY | 2024-12-27 17:22 | XMS_ITS | Referral Summary ---
Author Organization [facility] Address [address] [place] [address] Care Team Providers Care Laundry Operator Name Role Phone Chuy Vitale MD Primary Care Provider [phone] Encounters Date Type Department Care Team Description 12/04/2024 Orders Only [facility] [address] [place] [phone] Fire Alarm Repairer: Mirtha Heart MD 11/24/2024 Refill [facility] [address] [place] [address] Fire Alarm Repairer: Mitesh Mccollum MD 11/15/2024 Refill [facility] [address] [place] [address] Fire Alarm Repairer: Mitesh Mccollum MD 09/30/2024 myChart Message [facility] [address] [place] [address] Fire Alarm Repairer: Mitesh Mccollum MD lab 09/30/2024 Results Follow-Up [facility] [address] [place] [address]11 Fire Alarm Repairer: Mitesh Mccollum MD 09/30/2024 Telephone [facility] [address] [place] [address] Fire Alarm Repairer: Mitesh Mccollum MD 09/30/2024 Orders Only [facility] [address] [place] [address] Fire Alarm Repairer: Mitesh Mccollum MD Polycythemia (Primary Dx) 09/27/2024 Refill [facility] [address] [place] [address] Fire Alarm Repairer: Mitesh Mccollum MD from Last 3 Months Allergies Active Allergy Reactions Criticality Noted Date Comments Metformin Diarrhea 04/17/2022 Medications acyclovir (ZOVIRAX) 5 % ointment 1 Active albuterol (PROAIR HFA,VENTOLIN HFA) 90 mcg inhaler 2 puffs every 4 hours as needed. 2 Active Accu-Chek Guide Me Glucose Mtr misc USE DIRECTED. 2 Active clotrimazole-betame thasone (LOTRISONE) cream SMARTSIG:To pical Morning-Gi rodney 2 Active famotidine (PEPCID) 20 mg tablet Take 20 mg by mouth 2 times a day. 2 Active valACYclovir (VALTREX) 1 gram tablet Take 1,000 mg by mouth every 12 hours. prn 1 Active tamsulosin (FLOMAX) 0.4 mg capsule Take 0.4 mg by mouth once a day. Active VanishPoint Tuberculin Syringe 1 mL 25 gauge x 5/8 syringe One a week 50 each 1 4 Active semaglutide (Ozempic) 1 mg/dose (4 mg/3 mL) pen injectorIndications :Type 2 diabetes mellitus without complication, without long-term current use of insulin (HCC) Inject 0.75 mL (1 mg total) under the skin every 7 days. 3 mL 11 5 Active BD PrecisionGlide 25 gauge x 1 needle Use 1 weekly 50 each 5 Active Accu-Chek Guide test strips test strip Use to test 3 times daily. 300 strip 3 5 Active Accu-Chek Fastclix Lancet Drum misc Use to test 3 times daily. 300 each 3 5 Active testosterone enanthate (DELATESTRYL) 200 mg/mL injection INJECT 0.2 ML INTO THE MUSCLE WEEKLY 5 mL Active glipiZIDE XL (GLUCOTROL XL) 5 mg tablet Take 1 tablet (5 mg total) by mouth once a day. 90 tablet 3 5 Active Active Problems Problem Noted Date Diagnosed [...] Description 03/02/2025 3:30 PM EDT Office Visit [facility] [address] [place] [address] Fire Alarm Repairer: Mitesh Mccollum MD [address] [place] [phone] (Work) Procedures * Due to [place] [employer] law, this organization might not be sharing negative HIV tests. Procedure Name Priority Date/Time Associated Diagnosis Comments DIABETES EYE EXAM Routine 12/04/2024 1:45 PM EDT MICROALBUMIN, RANDOM URINE WITH CREATININE Routine 08/25/2024 10:16 AM EDT Type 2 diabetes mellitus without complication, without long-term current use of insulin POCT GLYCOSYLATED HEMOGLOBIN (HGB A1C) Routine 08/25/2024 8:32 AM EDT COMPREHENSIVE METABOLIC PANEL, OUTSIDE LAB Routine 02/05/2023 from Last 3 Months or Most Recently Relevant to Health Maintenance Results * Due to [place] [employer] law, this organization might not be sharing negative HIV tests. * Eye Exam, Diabetic (12/04/2024 1:45 PM EDT) us Unknown Provider MD HEALTH MAINTENANCE Final Res ult * Microalbumin, Random Urine with Creatinine (08/25/2024 10:16 AM EDT) Microalbumin, Urine <2.0 mg/dL 08/25/2024 12:04 PM EDT [facility] Creatinine, Urine 115 22 - 328 mg/dL 08/25/2024 12:04 PM EDT [facility] Microalb/Creat Ratio, Random Urine 08/25/2024 12:04 PM EDT [facility] Comment: < 1.0 mcg/mgCr Microalbumin Reference Range: Normal <30 mcg/mg Creatinine Microalbuminuria 30-300 mcg/mg Creatinine Clinical Albuminuria >300 mcg/mg Creatinine Reference: ADA Guideline. Diabetes Care. 2004;27 (suppl 1) Urine Voided urine specimen / Unknown Non-Blood Collection / Unknown 08/25/2024 10:16 AM EDT 08/25/2024 11:23 AM EDT Mitesh Landrum MD LAB URINE ORDERABLES Final Re sult [facility] [address] [place] [address], [place] * (ABNORMAL) POCT Glycosylated Hemoglobin (HGB A1C), interfaced (08/25/2024 8:32 AM EDT) Hemoglobin A1C, POCT 6.3(H) <=5.6 % 08/25/2024 8:58 AM EDT [facility] Comment: A1C Recommendation for Non- Adults with Diabetes: <7.0% ADA 2011 Standards of Medical Care in Diabetes Blood 08/25/2024 8:32 AM EDT 08/25/2024 8:58 AM EDT us Mitesh Landurm MD LAB POCT ORDERABLES - DEVICE Final Result [facility] [address] [place] [address], [place] * Comprehensive Metabolic Panel, Outside Lab (02/05/2023) Sodium 140 mmol/L Potassium 4.0 Creatinine 1.0 mg/dL AST 19 U/L ALT 23 U/L Blood Structure of peripheral vein / Unknown 02/05/2023 us Unknown Provider LAB BLOOD ORDERABLES Final R esult from Last 3 Months or Most Recently Relevant to Health Maintenance Insurance [employer] Care Teams Laundry Operator Relationship Specialty Start Date End Date Chuy Vitale MD [address] [place] [address] PCP - General Family Medicine 10/19/22
--- OUTSIDE RECORDS SUMMARY | 2024-12-27 17:22 | XMS_ITS | Clinical Summary ---
Author Organization [facility] Address [address] [place] [address] Phone Care Team Providers Care Central Service Tech Name Role Phone Angelo Shepard MD Primary Care Provider [phone] Allergies No known active allergies Medications metFORMIN [...] HEMOGLOBIN A1C 6.5(H) 4.3 - 5.8 % [facility] Blood 10/04/2019 8:23 AM EDT 10/04/2019 10:07 AM EDT us Dru Garcia DO LAB BLOOD ORDERABLES Final Resul t [facility] [address] [place] [address] * (ABNORMAL) Basic metabolic panel (10/04/2019 8:23 AM EDT) SODIUM 145 133 - 146 mmol/L [facility] CHLORIDE 106 96 - 108 mmol/L [facility] POTASSIUM 5.2(H) 3.3 - 5.1 mmol/L [facility] CO2 28 21 - 35 mmol/L [facility] BUN 18 6 - 19 mg/dL [facility] CREATININE 1.00 0.5 - 1.5 mg/dL [facility] GLUCOSE 143(H) 70 - 99 mg/dL [facility] CALCIUM 9.2 8.4 - 10.3 mg/dL [facility] EGFR 87 >59 mL/min/1.7 3m2 [facility] Comment:If patient is black, multiply result by 1.159. Estimated glomerular filtration rate calculated using the CKD-EPI equation. ANION GAP 16 10 - 20 mmol/L [facility] Blood 10/04/2019 8:23 AM EDT 10/04/2019 10:07 AM EDT Dru Garcia DO LAB BLOOD ORDERABLES Final Resul t [facility] [address] [place] [address] from Last 3 Months or Most Recently Relevant to Health Maintenance Insurance [employer] [facility] Care Teams Central Service Tech Relationship Specialty Start Date End Date Angelo Shepard MD [email or web address] PCP - General Family Medicine 03/17/21 Additional Source Comments The information contained in this document represents components of the legal health record. It is not the complete legal health record.[facility]
== END 2024-12-28 12:11 | disposition home or self-care (01) ==
LOC: HO.HMCFM 17:20
PROVIDERS: PCP Family Medicine; Visit Provider Family Medicine
DX: R06.02 Shortness of breath (principal)

== ENCOUNTER 2025-02-09 09:39 | Outpatient (AMB) | payer OTHER, SELFPAY ==
--- NOTE | 2025-02-09 09:54 | A.OFFPC_ITS ---
Vital Signs 02/09/25 09:58 Height 5 ft 11 in Weight 234 lb 6 oz BMI 32.7 BP 102/72 Blood Pressure Location Rt brachial Position Sitting Respiration 14 Pulse 75 Pulse Source Pulse Oximeter Temp 97.2 F Temp Source Temporal Artery Scan Pulse Oximetry (%) 95 Oxygen Delivery Method Room Air Intake Visit Reasons: f/u shortness of breath Intake Note: Benji presents in the office today to follow up on his SOB. Allergies No Known Allergies Allergy (Verified 02/09/25 09:55) Medication List - Last Reconciled 02/09/25 by Chuy Vitale MD albuterol sulfate 90 mcg/actuation 2 puffs inhalation Q4-6H PRN 30 days [Maegan ] famotidine 40 mg PO BEDTIME 30 days fluticasone propionate 50 mcg/actuation (Flonase Allergy Relief) 2 sprays intranasal QDAY glipizide ER 5 mg PO DAILY 30 days needle (disp) 25 gauge (BD PrecisionGlide) As directed [Pepcid ] semaglutide (Ozempic) 1 mg (0.75 mL) subcut QWEEK 28 days testosterone cypionate 50 mg IM QWEEK Tobacco use date assessed: 02/09/25 Dental Screening Dental Screen Date: 02/09/25 HPI f/u shortness of breath HPI Details 54 y/o male presents to f/u shortness of breath. Reports ongoing shortness of breath. Pt notes famotidine has been helping a little with secretion of his throat. PFT scheduled in February. Pt notes he has had an albuterol inhaler in the past but did not help much. HPI Comments History of Present Illness Details Documentation assistance for Chuy Vitale MD, was provided by Hector Cameron,? Flight Radio Officer on at 10:24 AM MANN. I, Dr. Vitale, have read, observed, and verified documentation. [facility], [facility] Medical History Arthritis Diabetes Palpitations Sinusitis Surgical History History of cholecystectomy History of knee surgery Family History (Updated 02/09/25 @ 09:58 by Carlie Rosario MA) Mother Hypertension Thyroid condition Father Hypertension High cholesterol Cardiovascular disease Maternal Grandmother Hypertension Paternal Grandmother Hypertension High cholesterol Cardiovascular disease Cancer Alcoholism Maternal Grandfather Hypertension Paternal Grandfather Hypertension High cholesterol Cardiovascular disease Social History (Updated 02/09/25 @ 09:58 by Carlie Rosario MA) Housing: House Alcohol intake: never Patient Tobacco Use Status: Never used Tobacco e-Cigarette/Vaping Use: Never Used Second Hand Smoke Exposure: No service: No 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al status: employed 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: [employer] 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al exposures/hazards: Yes Cognitive needs: No Hearing needs: No Vision needs: No Questionnaire Thrive Questionnaire Date Thrive assessed: 06/23/24 I am a: Patient What is your living situation today?: I have a steady place to live Within the past 12 months, did the food you bought not last and you didn't have the money to get more?: Never true Within the past 12 months, did you worry whether your food would run out before you got money to buy more?: Never true Do you have trouble paying for medicines?: No Do you have trouble getting transportation to medical appointments?: No Do you have trouble paying your heating and electricity bill?: No Do you have trouble taking care of your child, family member or friend?: No Do you have trouble with day-to-day activities such as bathing, preparing meals, shopping, managing finances, etc.?: No Are you currently unemployed and looking for a job?: No Are you interested in more education?: No Please select the resources that you would like help with: None Currently or been in a relationship where the following occur: No concerns reported THRIVE Score: 0 IVY-7 AMB Questionnaire IVY-7 Date IVY - 7 assessed: 12/15/24 Source: Developed by Drs. Nain Euceda, Valencia Perez, Joao Vogt and colleagues, with an educational bridger from [employer]. Review of Systems Const Denies chills, Denies fatigue, Denies fever(s), Denies headache(s) and Denies weakness ENT Denies dizziness and Denies headache(s) Resp Details: Shortness of breath Denies cough, Denies wheezing and Denies other (shortness of breath) Musc Denies numbness and Denies tingling Neuro Denies dizziness, Denies headache(s), Denies numbness, Denies tingling and Denies weakness Psych Denies anxiety and Denies depression Endo Denies fatigue Aller/Immun Denies wheezing Physical exam (Primary Care) Vital Signs: Last Vital Signs Temp 97.2 F 02/09/25 09:58 Pulse 75 02/09/25 09:58 Resp 14 02/09/25 09:58 BP 102/72 02/09/25 09:58 Pulse Ox 95 02/09/25 09:58 Oxygen Delivery Method Room Air 02/09/25 09:58 BMI result Body Mass Index 32.7 Tobacco/Smoking Status: Tobacco use Status Tobacco use date assessed 02/09/25 02/09/25 10:01 Patient Tobacco Use Status Never used Tobacco 02/09/25 09:58 e-Cigarette/Vaping Use Never Used 02/09/25 09:58 Thrive Assessment: Date of Thrive Assessment Date Thrive assessed 06/23/24 02/09/25 09:55 Currently or been in a relationship where the following occur: No concerns reported Const General: well developed; No acute distress Nutritional Appearance: well nourished Orientation/consciousness: patient oriented x3 HENMT Head: Yes normocephalic and Yes atraumatic Eyes General: appearance normal, both eyes and all related structures Pupils: Equal, round and reactive pupils present EOM: EOMs intact bilaterally Resp Effort & Inspection: normal respiratory effort Neuro General: patient oriented x3 and gait normal Cranial nerves: Yes Equal, round and reactive pupils present Psych Affect: normal affect Coding Level of Care Code Est Pt Level 4 (45246) Diagnoses Shortness of breath R06.02 Assessment & Plan Assessment & Plan (1) Shortness of breath: Code(s): R06.02 - Shortness of breath Category: Medical Plan: Ongoing shortness of breath. Cardiac exam and EKG were unremarkable. Chest x-ray was normal. Trial of famotidine was equivocal - he says famotidine may help a little with secretions in his throat. Still has symptoms and his oxygen saturation remains 95%. Patient says albuterol did not help much. Pulmonary function testing scheduled in mid February. However, patient notes that sometimes gets symptoms when exerting himself like going up stairs. Does have family history of cardiac disease Will check a stress test. Orders: Orders CA stress test Today R06.02 - Shortness of breath Medications: Changed From testosterone cypionate 50 mg (0.5 mL) IM QWEEK 28 days 2 mL 0RF To testosterone cypionate .2 ml weekly 50 mg IM QWEEK From famotidine 40 mg PO BEDTIME 30 days 30 tabs 0RF To famotidine 40 mg PO BEDTIME 90 tabs 1RF 90 days
[2025-02-09 09:58] VITALS: BP 102/72; PULSE 75; RESP 14; TEMP 36.2; O2SAT 95; BMI 32.7
--- OUTSIDE RECORDS SUMMARY | 2025-02-09 10:48 | XMS_ITS | Encounter Summary ---
Author Organization [facility] Address [address] [place] [address] Care Team Providers Care Stitcher Around Name Role Phone Chuy Vitale MD Primary Care Provider [phone] Reason for Visit * Reason Comments Med Refill Encounter Details Date Type Department Care Team (Late st Contact Info) Description 02/07/2025 Refill [facility] [address] [place] [address] Cottage Master: Mitesh Mccollum MD [address] [place] [phone] (Work) Social History Tobacco Use Types Packs/Day Years Used Date Smoking Tobacco: Never Assessed Sex and Gender Information Value Date Recorded Sex Assigned at Male 10/15/2022 4:06 PM EDT Legal Sex Male 10:13 AM EDT Gender Identity Male 10/15/2022 4:06 PM EDT Sexual Orientation Straight 10/15/2022 4: 06 PM EDT documented as of this encounter Miscellaneous Notes * Telephone Encounter - Jessica Hdz LPN - 02/08/2025 1:19 PM EDT Script states not to exceed 5 refills. Please advise if to continue on medication or is he to have labs? documented in this encounter Plan of Treatment Upcoming Encounters Date Type Department Care Team (Late st Contact Info) Description 03/02/2025 3:30 PM EDT Office Visit [facility] [address] [place] [address] Cottage Master: Mitesh Mccollum MD [address] [place] [phone] (Work) documented as of this encounter Visit Diagnoses Not on filedocumented in this encounter Care Teams Stitcher Around Relationship Specialty Start Date End Date Chuy Vitale MD [address] [place] [id number] PCP - General Family Medicine 10/19/22 documented as of this encounter
--- OUTSIDE RECORDS SUMMARY | 2025-02-09 10:48 | XMS_ITS | Clinical Summary ---
Author Organization [facility] Address [address] [place] [address] Care Team Providers Care Extractor Plant Operator Name Role Phone Chuy Vitale MD Primary Care Provider [phone] Allergies Active Allergy Reactions Criticality Noted Date [...] ML INTO THE MUSCLE WEEKLY 5 mL 5 Active glipiZIDE XL (GLUCOTROL XL) 5 mg [...] Encounters Date Type Department Care Team Description 02/07/2025 Refill [facility] [address] [place] [address] Electrician Assistant: Mitesh Mccollum MD 01/04/2025 External Result Entry [facility] [address] [place] [phone] Electrician Assistant: Mitesh Mccollum MD 01/04/2025 External Result Entry [facility] [address] [place] [phone] Electrician Assistant: Neel Mcnally PCA 12/04/2024 Orders Only [facility] [address] [place] [address] Electrician Assistant: Mirtha Heart MD 11/24/2024 Refill [facility] [address] [place] [phone] Electrician Assistant: Mitesh Mccollum MD 11/15/2024 Refill [facility] [address] [place] [address] Electrician Assistant: Mietsh Mccollum MD from Last 3 Months Social [...] [facility] [address] [place] [address] Electrician Assistant: Mitesh Mccollum MD [address] [place] [address] [phone] (Work) Health Maintenance Due Date Last Done Comments Cologuard 1968 Colon Cancer Screening 1968 Colonoscopy 1968 FOBT / Fit Test 1968 HIV Screening 1968 Hepatitis C Screening 1968 Sigmoidoscopy 1968 Hepatitis B Vaccines (1 of 3 - 19+ 3-dose series) 08/08/1987 Pneumococcal Vaccine: 50+ Ye ars (2 of 2 - PCV) 07/14/2013 07/14/2012 Zoster Vaccines (1 of 2) 2018 Basic Metabolic Panel 02/06/2024 02/05/2023 , 05/06/2022, 02/16/2022, Additional history exists Alcohol/Substance Use Screening 05/31/2024 Depression Screening and Follow-Up 05/31/2024 Social Drivers of Health Flores ual Screening 05/31/2024 COVID-19 Vaccine (8 2024-2 6 season) 2025 06/04/2023, 11/06/2022, 03/18/2022, Additional history exists Influenza Vaccine (#1) 2025 , 06/04/2023, 03/18/2022, Additional history exists Hemoglobin A1C 03/04/2025 12/02/2024, 07/0 09/2024, 08/25/2024, Additional history exists Urine Microalbumin 08/25/2025 08/25/2024, 1 06/20/2022, 01/26/2022 Ophthalmology Exam 12/04/2025 12/04/2024 DTaP,Tdap,and Td Vaccines (2 - Td or Tdap) 03/07/2028 03/07/2018, 11/05/2006 RSV Vaccine (60+ years old a nd patients) (1 - 1-dose 75+ series) 08/08/2043 Procedures * Due to [place] [employer] law, this organization might not be sharing negative HIV tests. Procedure Name Priority Date/Time Associated Diagnosis Comments DIABETES EYE EXAM Routine 12/04/2024 1:45 PM EDT HEMOGLOBIN A1C, OUTSIDE LAB Routine 12/02/2024 HEMOGLOBIN A1C, OUTSIDE LAB Routine 12/02/2024 MICROALBUMIN, RANDOM URINE WITH CREATININE Routine 08/25/2024 10:16 AM EDT Type 2 diabetes mellitus without complication, without long-term current use of insulin COMPREHENSIVE METABOLIC PANEL, OUTSIDE LAB Routine 02/05/2023 from Last 3 Months or Most Recently Relevant to Health Maintenance Results * Due to [place] law, this organization might not be sharing negative HIV tests. * Eye Exam, Diabetic (12/04/2024 1:45 PM EDT) us Unknown Provider HEALTH MAINTENANCE Final Res ult * (ABNORMAL) Hemoglobin A1c, Outside Lab (12/02/2024) Only the most recent of2 resultswithin the time period is included. Hemoglobin A1C 17.3(H) % Blood Structure of peripheral vein / Unknown 12/02/2024 us Unknown Provider LAB BLOOD ORDERABLES Final R esult * Microalbumin, Random Urine with Creatinine (08/25/2024 10:16 AM EDT) Microalbumin, Urine <2.0 mg/dL 08/25/2024 12:04 PM EDT [facility] Creatinine, Urine 115 22 - 328 mg/dL 08/25/2024 12:04 PM EDT [facility] Microalb/Creat Ratio, Random Urine 08/25/2024 12:04 PM EDT [facility] Comment: < 1.0 mcg/mgCr Microalbumin Reference Range: Normal <30 mcg/mg Creatinine Microalbuminuria 30-300 mcg/mg Creatinine Clinical Albuminuria >300 mcg/mg Creatinine Reference: ADA Guideline. Diabetes Care. 2004;27 (suppl 1) Urine Voided urine specimen / Unknown Non-Blood Collection / Unknown 08/25/2024 10:16 AM EDT 08/25/2024 11:23 AM EDT us Mitesh Landrum MD LAB URINE ORDERABLES [facility] Re [facility] [address] [place] [address], * Comprehensive Metabolic Panel, Outside Lab (02/05/2023) Sodium 140 mmol/L Potassium 4.0 Creatinine 1.0 mg/dL AST 19 U/L ALT 23 U/L Blood Structure of peripheral vein / Unknown 02/05/2023 us Unknown Provider LAB BLOOD ORDERABLES Final R esult from Last 3 Months or Most Recently Relevant to Health Maintenance Insurance [employer] Care Teams Extractor Plant Operator Relationship Specialty Start Date End Date Chuy Vitale MD [address] [place] [phone] PCP - General Family Medicine 10/19/22
--- OUTSIDE RECORDS SUMMARY | 2025-02-09 10:48 | XMS_ITS | Encounter Summary ---
Author Organization [facility] Address [address] [place] [address] Care Team Providers Care Top Steep Tender Name Role Phone Chuy Vitale MD Primary Care Provider [phone] Encounter Details Date Type Department Care Team (Late st Contact Info) Description 01/04/2025 External Result Entry [facility] [address] [place] [phone] Coroner Technician: Neel Mcnally PCA Social History Tobacco Use Types Packs/Day Years Used Date Smoking Tobacco: Never Assessed Sex and Gender Information Value Date Recorded Sex Assigned at Male 10/15/2022 4:06 PM EDT Legal Sex Male 10:13 AM EDT Gender Identity Male 10/15/2022 4:06 PM EDT Sexual Orientation Straight 10/15/2022 4: 06 PM EDT documented as of this encounter Plan of Treatment Upcoming Encounters Date Type Department Care Team (Late st Contact Info) Description 03/02/2025 3:30 PM EDT Office Visit [facility] [address] [place] [phone] Coroner Technician: Mitesh Mccollum MD [address] [place] [phone] (Work) documented as of this encounter Procedures * Due to [place] state law, this organization might not be sharing negative HIV tests. Procedure Name Priority Date/Time Associated Diagnosis Comments HEMOGLOBIN A1C, OUTSIDE LAB Routine 12/02/2024 documented in this encounter Results * Due to [place] state law, this organization might not be sharing negative HIV tests. * (ABNORMAL) Hemoglobin A1c, Outside Lab (12/02/2024) Hemoglobin A1C 17.3(H) % Blood Structure of peripheral vein / Unknown 12/02/2024 us Unknown Provider MD LAB BLOOD ORDERABLES Final R esult documented in this encounter Visit Diagnoses Not on filedocumented in this encounter Care Teams Top Steep Tender Relationship Specialty Start Date End Date Chuy Vitale MD [address] [place] [address] PCP - General Family Medicine 10/19/22 documented as of this encounter
--- OUTSIDE RECORDS SUMMARY | 2025-02-09 10:48 | XMS_ITS | Encounter Summary ---
Author Organization [facility] Address [address] [place] [address] Phone Care Team Providers Care Molder Foam Rubber Name Role Phone Jarrell Spring MD Primary Care Provider [phone] Angelo Shepard MD Primary Care Provider Encounter Details Date Type Department Care Team (Late st Contact Info) Description 03/03/2021 Procedure Pass OR Admitting Dept - Virtual Department [address] [place] [address] Social History Tobacco Use Types Packs/Day Years Used Date Smoking Tobacco: Never Smokeless Tobacco: Never Alcohol Use Standard Drinks/Week Comments Not Currently 0 (1 standard drink = 0.6 oz pur e alcohol) Sex and Gender Information Value Date Recorded Sex Assigned at Not on file Legal Sex Male 9:37 PM EDT Gender Identity Not on file Sexual Orientation Not on file documented as of this encounter Plan of Treatment Not on file documented as of this encounter Visit Diagnoses Not on filedocumented in this encounter Care Teams Molder Foam Rubber Relationship Specialty Start Date End Date Jarrell Spring MD [address] [place] [address] [email or web address] PCP - General 06/03/17 03/16/21 Angelo Shepard MD [address] [place] [address] PCP - General Family Medicine 03/17/21 documented as of this encounter Additional Source Comments The information contained in this document represents components of the legal health record. It is not the complete legal health record.[facility]
--- OUTSIDE RECORDS SUMMARY | 2025-02-09 10:48 | XMS_ITS | Clinical Summary ---
Author Organization [facility] Address [address] [place] [address] Phone Care Team Providers Care Computer Systems Security Administrator Name Role Phone Angelo Shepard MD Primary Care Provider [phone] Allergies No known active allergies Medications metFORMIN [...] HEPATITIS C SCREENING 1986 HIV ONE-TIME SCREENING (18-65 YEARS) 1986 PNEUMOCOCCAL VACCINES (50+ years) (2 of 2 - PCV) 07/14/2013 07/14/2012 COLOGUARD 2013 COLONOSCOPY 2013 COLORECTAL CANCER SCREENING 2013 FIT TEST 2013 FOBT 2013 SIGMOIDOSCOPY 2013 VIRTUAL COLONOSCOPY 2013 Adult Td,Tdap Booster 11/05/2016 11/05/2006 ZOSTER VACCINES (1 of 2) 2018 DIABETIC EYE EXAM 07/10/2019 URINE MICROALBUMIN/CREATININE RATIO 07/10/2019 HEMOGLOBIN A1C 04/05/2020 10/04/2019, 07/10/2019 CREATININE LEVEL 10/03/2020 10/04/2019 INFLUENZA VACCINE (#1) 2024 0, 03/31/2019, 04/29/2012, Additional history exists COVID-19 VACCINE (2024- season) 2025 08/13/2020, 07/23/2020 SMOKING STATUS SCREENING (Once After 26 Yrs) Completed 08/11/2021 HEPATITIS A [...] HEMOGLOBIN A1C 6.5(H) 4.3 - 5.8 % [facility] Blood 10/04/2019 8:23 AM EDT 10/04/2019 10:07 AM EDT Dru Garcia DO LAB BLOOD ORDERABLES Final Resul t Performing Organization Address City/[facility] Co de Phone Number [address] [address] * (ABNORMAL) Basic metabolic panel (10/04/2019 8:23 AM EDT) SODIUM 145 133 - 146 mmol/L [facility] CHLORIDE 106 96 - 108 mmol/L [facility] POTASSIUM 5.2(H) 3.3 - 5.1 mmol/L [facility] CO2 28 21 - 35 mmol/L [facility] BUN 18 6 - 19 mg/dL [facility] CREATININE 1.00 0.5 - 1.5 mg/dL [facility] GLUCOSE 143(H) 70 - 99 mg/dL [facility] CALCIUM 9.2 8.4 - 10.3 mg/dL [facility] EGFR 87 >59 mL/min/1.7 3m2 [facility] Comment:If patient is black, multiply result by 1.159. Estimated glomerular filtration rate calculated using the CKD-EPI equation. ANION GAP 16 10 - 20 mmol/L [facility] Blood 10/04/2019 8:23 AM EDT 10/04/2019 10:07 AM EDT Dru Garcia DO LAB BLOOD ORDERABLES Final Resul t Performing Organization Address [facility] Co de Phone Number [address] [address] from Last 3 Months or Most Recently Relevant to Health Maintenance Insurance AETNA [facility] Care Teams Computer Systems Security Administrator Relationship Specialty Start Date End Date Angelo Shepard MD PCP - General Family Medicine 03/17/21 Additional Source Comments The information contained in this document represents components of the legal health record. It is not the complete legal health record.[facility]
--- OUTSIDE RECORDS SUMMARY | 2025-02-09 10:48 | XMS_ITS | Encounter Summary ---
Author Organization [facility] Address [address] [place] [address] Care Team Providers Care Coping Machine Operator Name Role Phone Chuy Vitale MD Primary Care Provider [phone] Reason for Visit * Reason Onset Date Comments PAC Rx Questions 05/26/2022 Encounter Details Date Type Department Care Team (Late st Contact Info) Description 05/26/2022 Telephone [facility] [address] [place] [address] Telephone Intake, Staff PAC Rx Questions Social [...] Trulicity ( he leaves for work in [employer] Wednesday) & needs a refill before he leaves. [facility] [address] [facility] Pt can be reached @ [phone] Thank you PAC documented in this encounter Plan of Treatment Upcoming Encounters Date Type Department Care Team (Late Contact Info) Description 03/02/2025 3:30 PM EDT Office Visit [facility] [address] [place] [address] Gluing Machine Adjuster: Mitesh Mccollum MD [address] [place] [phone] (Work) documented as of this encounter Visit Diagnoses Diagnosis Type 2 diabetes mellitus without complication, without long-term current use of insulin (HCC)- Primary documented in this encounter Care Teams Coping Machine Operator Relationship Specialty Start Date End Date Chuy Vitale MD [address] [place] [id number] PCP - General Family Medicine 10/19/22 documented as of this encounter
--- OUTSIDE RECORDS SUMMARY | 2025-02-09 10:48 | XMS_ITS | Encounter Summary ---
Author Organization [facility] Address [address] [facility] [address] [place] [address] Phone Care Team Providers Care Elevator Operator Name Role Phone Angelo Shepard MD Primary Care Provider [phone] Encounter Details Date Type Department Care Team (Late st Contact Info) Description 05/02/2021 Procedure Pass Echo [facility] [address] [place] [address] Social History Tobacco Use Types Packs/Day Years [...] on filedocumented in this encounter Care Teams Elevator Operator Relationship Specialty Start Date End Date Angelo Shepard MD PCP - General Family Medicine 03/17/21 documented as of this encounter Additional Source Comments The information contained in this document represents components of the legal health record. It is not the complete legal health record.[facility]
== END 2025-02-09 10:22 | disposition home or self-care (01) ==
LOC: HO.HMCFM 09:40
PROVIDERS: PCP Family Medicine; Visit Provider Family Medicine
DX: R06.02 Shortness of breath (principal)

== ENCOUNTER 2025-02-12 08:37 | Outpatient (AMB) | payer OTHER, SELFPAY ==
--- NOTE | 2025-02-12 08:40 | A.OFFVIS_ITS ---
Intake Visit Reasons: OV, Discuss R TITUS Intake Note: Benji is a 54 year old male who presents today for a follow up of his Right Hip OA, to discuss possible TITUS. He was last seen with Barbara in 2023 where they discussed treatment options. At that time patient decided to move forward with a intraarticular hip injection done under fluoroscopy at hospital - done on 08/14/2024. This injection was mildy helpful and the effects have worn off. Diabetes: A1C- 12/15/24 7.3% (on Semaglutide) BMI: 33.1 - 5'11 237lbs Allergies No Known Allergies Allergy (Verified 02/09/25 09:55) HPI HPI OV, Discuss R TITUS: Details: This is a 54-year-old gentleman with right hip pain. He has been present for over a year. He has a somewhat sedentary job so it does not bother him too much of work but it limits his ability to ambulate without pain. He had an injection in April which was helpful. He would have sought definitive treatment sooner but he is caring for his mother Anna so is traveling a bunch. She has diabetes and has been on Ozempic and glipizide for years. His hemoglobin A1c is around 7. PFSH Medical History Arthritis Diabetes Palpitations Sinusitis Surgical History History of cholecystectomy History of knee surgery Family History (Updated 02/09/25 @ 09:58 by Carlie Rosario MA) Mother Hypertension Thyroid condition Father Hypertension High cholesterol Cardiovascular disease Maternal Grandmother Hypertension Paternal Grandmother Hypertension High cholesterol Cardiovascular disease Cancer Alcoholism Maternal Grandfather Hypertension Paternal Grandfather Hypertension High cholesterol Cardiovascular disease Social History (Updated 02/12/25 @ 08:43 by Vivienne Gautam CMA) Housing: House Alcohol intake: never Patient Tobacco Use Status: Never used Tobacco e-Cigarette/Vaping Use: Never Used Second Hand Smoke Exposure: No service: No 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al status: employed 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 Resp Other: No audible wheezing Effort & Inspection: normal respiratory effort Cardio Other: Radial pulse palpable with no rythmic abnormalities Back/Spine/Pelvis Cervical Spine: normal cervical lordosis Skin General skin exam: no rashes or lesions noted Neuro General: no focal motor deficits Extrem Other: + Gait antalgia + Trendelenberg gait + Impingement test DP+2 Firing EHL/TA/GC Psych Appearance: grossly normal and well kempt Mental Status: mental status grossly normal Speech and movement: Normal speech and movement present Affect: normal affect Attitude: cooperative Results Reviewed Results Reviewed: I personally reviewed relevant radiographs. Severe OA right hip Assessment & Plan Assessment & Plan (1) Arthritis of right hip: Code(s): M16.11 - Unilateral primary osteoarthritis, right hip Category: Medical Plan: This is a 54-year-old diabetic male with right hip OA. His diabetes is controlled and he is otherwise healthy. He is limited in his ability to walk and has severe OA on radiographs. A benefitted from an injection performed last April. I recommend hip replacement. I discussed the rationale with him and reviewed his x-rays with him. I discussed the risks and benefits of surgery. I explained the risk of infection, fracture, dislocation, nerve injury, need for additional surgery as well as potential medical complications such as blood clots, wound healing difficulty, organ failure. I discussed with the need for preoperative clearance and a risk assessment by anesthesia. He is interested in pursuing this and I will have him speak with our operating room scheduler. We will begin the preoperative clearance process. Coding Level of Care Code Est Pt Level 4 (54449) Diagnoses Arthritis of right hip M16.11
--- OUTSIDE RECORDS SUMMARY | 2025-02-12 09:54 | XMS_ITS | Clinical Summary ---
Author Organization [facility] Address [address] [place] [address] Care Team Providers Care Corduroy Brusher Operator Name Role Phone Chuy Vitale MD Primary Care Provider [phone] Allergies Active Allergy Reactions Criticality Noted Date [...] Type Department Care Team Description 02/07/2025 Refill [facility] [address] [place] [address] Box Storage Worker: Mitesh Mccollum MD 01/04/2025 External Result Entry [facility] [address] [place] [address] Box Storage Worker: Mitesh Mccollum MD 01/04/2025 External Result Entry [facility] [address] [place] [address] Box Storage Worker: Neel Mcnally PCA 12/04/2024 Orders Only [facility] [address] [place] [address] Box Storage Worker: Mirtha Heart MD 11/24/2024 Refill [facility] [address] [place] [address] Box Storage Worker: Mitesh Mccollum MD 11/15/2024 Refill [facility] [address] [place] [address] Box Storage Worker: Mitesh Mccollum MD from Last 3 Months [...] Description 03/02/2025 3:30 PM EDT Office Visit [facility] [address] [place] [address] Box Storage Worker: Mitesh Mccollum MD [address] [place] [address] [phone] (Work) Health Maintenance Due Date Last [...] 75+ series) 08/08/2043 Procedures * Due to [place] [employer] law, this organization might not be sharing [...] to Health Maintenance Results * Due to [place] [employer] law, this organization might not be sharing [...] Urine <2.0 mg/dL 08/25/2024 12:04 PM EDT [facility] Creatinine, Urine 115 22 - 328 mg/dL 08/25/2024 12:04 PM EDT [facility] Microalb/Creat Ratio, Random Urine 08/25/2024 12:04 PM EDT [facility] Comment: < 1.0 mcg/mgCr Microalbumin Reference Range: Normal <30 mcg/mg Creatinine Microalbuminuria 30-300 mcg/mg Creatinine Clinical Albuminuria >300 mcg/mg Creatinine Reference: ADA Guideline. Diabetes Care. 2004;27 (suppl 1) Urine Voided urine specimen / Unknown Non-Blood Collection / Unknown 08/25/2024 10:16 AM EDT 08/25/2024 11:23 AM EDT us Mitesh Landrum MD LAB URINE ORDERABLES Final Re sult [facility] [address] [place] [address], * Comprehensive Metabolic Panel, Outside Lab (02/05/2023) Sodium 140 mmol/L Potassium 4.0 Creatinine 1.0 mg/dL AST 19 U/L ALT 23 U/L Blood Structure of peripheral vein / Unknown 02/05/2023 us Unknown Provider LAB BLOOD ORDERABLES Final R esult from Last 3 Months or Most Recently Relevant to Health Maintenance Insurance [employer] Care Teams Corduroy Brusher Operator Relationship Specialty Start Date End Date Chuy Vitale MD [address] [place] [phone] PCP - General Family Medicine 10/19/22
--- OUTSIDE RECORDS SUMMARY | 2025-02-12 09:54 | XMS_ITS | Encounter Summary ---
Author Organization [facility] Address [address] [place] [address] Care Team Providers Care Dispatch Machine Runner Name Role Phone Chuy Vitale MD Primary Care Provider [phone] Reason for Visit * Reason Comments Med Refill Encounter Details Date Type Department Care Team (Late st Contact Info) Description 02/07/2025 Refill [facility] [address] [place] [address] Culture Manager: Mitesh Mccollum MD [address] [place] [phone] (Work) Social History Tobacco Use Types [...] Description 03/02/2025 3:30 PM EDT Office Visit [facility] [address] [place] [address] Culture Manager: Mitesh Mccollum MD [address] [place] [phone] (Work) documented as of this encounter Visit Diagnoses Not on filedocumented in this encounter Care Teams Dispatch Machine Runner Relationship Specialty Start Date End Date Chuy Vitale MD [address] [place] [address] PCP - General Family Medicine 10/19/22 documented as of this encounter
--- OUTSIDE RECORDS SUMMARY | 2025-02-12 09:54 | XMS_ITS | Encounter Summary ---
Author Organization [facility] Address [address] [place] [address] Care Team Providers Care Advanced Manufacturing Consultant Name Role Phone Chuy Vitale MD Primary Care Provider [phone] Reason for Visit * Reason Onset Date Comments PAC Rx Questions 05/26/2022 Encounter Details Date Type Department Care Team (Late st Contact Info) Description 05/26/2022 Telephone [facility] Patient Access Center [address] [place] [address] Telephone Intake, Staff PAC Rx Questions Social [...] Trulicity ( he leaves for work in [employer] Wednesday) & needs a refill before he leaves. [facility] [address] [facility] Pt can be reached @ [phone] Thank you PAC documented in this encounter Plan of Treatment Upcoming Encounters Date Type Department Care Team (Late Contact Info) Description 03/02/2025 3:30 PM EDT Office Visit [facility] [address] [place] [address] Strap Folding Machine Operator: Mitesh Mccollum MD [address] [place] [phone] (Work) documented as of this encounter Visit Diagnoses Diagnosis Type 2 diabetes mellitus without complication, without long-term current use of insulin (HCC)- Primary documented in this encounter Care Teams Advanced Manufacturing Consultant Relationship Specialty Start Date End Date Chuy Vitale MD [address] [place] [address] PCP - General Family Medicine 10/19/22 documented as of this encounter
--- OUTSIDE RECORDS SUMMARY | 2025-02-12 09:54 | XMS_ITS | Encounter Summary ---
Author Organization [facility] Address [address] [place] [address] Care Team Providers Care Fresh Meat Grader Name Role Phone Chuy Vitale MD Primary Care Provider [phone] Encounter Details Date Type Department Care Team (Late st Contact Info) Description 01/04/2025 External Result Entry [facility] [address] [place] [phone] Debt Recovery Officer: Neel Mcnally PCA Social History Tobacco Use [...] Description 03/02/2025 3:30 PM EDT Office Visit [facility] [address] [place] [address] Debt Recovery Officer: Mitesh Mccollum MD [address] [place] [phone] (Work) documented as of this encounter Procedures * Due to [place] state law, this organization might not be sharing negative HIV tests. Procedure Name Priority Date/Time Associated Diagnosis Comments HEMOGLOBIN A1C, OUTSIDE LAB Routine 12/02/2024 documented in this encounter Results * Due to [place] state law, this organization might not be sharing negative HIV tests. * (ABNORMAL) Hemoglobin A1c, Outside Lab (12/02/2024) Hemoglobin A1C 17.3(H) % Blood Structure of peripheral vein / Unknown 12/02/2024 us Unknown Provider MD LAB BLOOD ORDERABLES Final R esult documented in this encounter Visit Diagnoses Not on filedocumented in this encounter Care Teams Fresh Meat Grader Relationship Specialty Start Date End Date Chuy Vitale MD [address] [place] [address] PCP - General Family Medicine 10/19/22 documented as of this encounter
== END 2025-02-12 09:13 | disposition home or self-care (01) ==
LOC: HO.HOS 08:39
PROVIDERS: PCP Family Medicine; Visit Provider Orthopaedic Surgery
DX: M16.11 Unilateral primary osteoarthritis, right hip (principal)
CPT/HCPCS: 99214

== ENCOUNTER → 2025-05-04 09:24 | Outpatient (REF) | payer OTHER, SELFPAY ==
--- NOTE | 2025-05-04 09:26 | CA_ITS ---
Acquisition Time: 2025-05-04 09:48:28 Total Exercise Time: 00:07:10 Test Indications: Dyspnea Medications: FAMOTIDINE FLONASE GLYPIZIDE OZEMPIC ALBUTERO;L INHALER Protocol: JENNIFER Max HR: 141 BPM 85% of Pred: 164 BPM Max BP: 158/70 mmHG Max Work Load: 8.7 METS Exercise stress test with exercise 7 mins 10 secs of Jennifer Protocol, achieving 85% MPHR, without any reports of CP or SOB, with isolated PACs and PVCs, with normotensive response to exercise. Without any EKG changes meeting criteria for ischemia. In recovery, pt continued to feel well. Test reviewed with Dr. Barone. Referred By: Chuy Vitale Electronically Signed By: Nishant Musa
--- NOTE | 2025-05-04 13:01 | PFT_ITS ---
Indication: Dyspnea Spirometry FEV1 to FVC 87%; FEV1 4.02 L; FVC 4.61 L. No significant response to bronchodilators noted. Lung Volumes Total lung capacity 87% predicted; residual volume 84% predicted Diffusion Capacity DLCO 100% predicted Methacholine Challenge [] Flow Volume Loops Normal MVV 146% predicted Comparisons None Interpretation No obstructive nor restrictive ventilatory defects identified. No significant response to bronchodilators noted. Normal maximum voluntary ventilation. Lung volumes are within normal limits and diffusing capacity within normal limits. Flow volume loop consistent with normal lung mechanics. No clear explanation for the patient has dyspnea symptoms based on these PFTs. Clinical correlation warranted. MTDD
[2025-05-04 13:35] VITALS: PULSE 65
== END ==
LOC: HO.CARD 09:24
PROVIDERS: PCP Family Medicine; Visit Provider Family Medicine
DX: R06.02 Shortness of breath (principal)
CPT/HCPCS: 93017; 94060; 94640; 94727; 94729

== ENCOUNTER → 2025-05-04 09:26 | Outpatient (BNV) | payer OTHER, SELFPAY | PROVIDERS: PCP Family Medicine | DX: I49.1 Atrial premature depolarization (principal); I49.3 Ventricular premature depolarization | CPT/HCPCS: 93016; 93018 ==

== ENCOUNTER → 2025-05-04 13:01 | Outpatient (BNV) | payer OTHER, SELFPAY | PROVIDERS: PCP Family Medicine; Visit Provider Hospitalist | DX: R06.02 Shortness of breath (principal) | CPT/HCPCS: 94060; 94727; 94729 ==

== ENCOUNTER 2025-05-18 10:14 | Outpatient (AMB) | payer OTHER, SELFPAY ==
--- NOTE | 2025-05-18 10:18 | MHC.PC.OV ---
Vital Signs 05/18/25 10:25 Height 5 ft 11 in Weight 218 lb 8 oz BMI 30.5 BP 102/62 Blood Pressure Location Rt brachial Position Sitting Respiration 15 Pulse 78 Pulse Source Pulse Oximeter Temp 97.2 F Temp Source Temporal Artery Scan Pulse Oximetry (%) 95 Oxygen Delivery Method Room Air Intake Visit Reasons: f/u shortness of breath Intake Note: Adan presents in the office today for SOB. Refrigeration Manager Required: No Allergies No Known Allergies Allergy (Verified 05/18/25 10:23) Medication List - Last Reconciled 05/18/25 by Chuy Vitale MD albuterol sulfate 90 mcg/actuation 2 puffs inhalation Q4-6H PRN 30 days [Maegan ] famotidine 40 mg PO BEDTIME 90 days fluticasone propionate 50 mcg/actuation (Flonase Allergy Relief) 2 sprays intranasal QDAY needle (disp) 25 gauge (BD PrecisionGlide) As directed testosterone cypionate 50 mg IM QWEEK tirzepatide (Mounjaro) 7.5 mg subcut QWEEK Tobacco use date assessed: 05/18/25 Dental Screening Dental Screen Date: 05/18/25 Did you have a dental visit in the last 12 months?: Yes Did you have a dental problem in the last 6 months where you did not have access to dental care?: No HPI f/u shortness of breath HPI Details 54 y/o male presents to f/u SOB, pulmonary function testing. Stress test 05/04/25. Showed: Exercise stress test with exercise 7 mins 10 secs of Ramin Protocol, achieving 85% MPHR, without any reports of CP or SOB, with isolated PACs and PVCs, with normotensive response to exercise. Without any EKG changes meeting criteria for ischemia. In recovery, pt continued to feel well. Test reviewed with Dr. Barone. A1c today 6.7%. Pt reports shortness of breath may be due to congestion. Reports symptoms intermittent. Pt notes some erectile dysfunction. [facility] Medical History Arthritis Diabetes Palpitations Sinusitis Surgical History (Reviewed 05/19/24 @ 11:28 by Leydi Dinh [facility]) History of cholecystectomy History of knee surgery Family History Mother Hypertension Thyroid condition Father Hypertension High cholesterol Cardiovascular disease Maternal Grandmother Hypertension Paternal Grandmother Hypertension High cholesterol Cardiovascular disease Cancer Alcoholism Maternal Grandfather Hypertension Paternal Grandfather Hypertension High cholesterol Cardiovascular disease Social History (Updated 05/18/25 @ 10:25 by Carlie Rosario [facility]) Housing: House Alcohol intake: never Patient Tobacco Use Status: Never used Tobacco e-Cigarette/Vaping Use: Never Used Second Hand Smoke Exposure: No Use of substances other than those prescribed or required for medical reasons: No service: No 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al status: employed 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: , 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 [employer] 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al exposures/hazards: Yes Cognitive needs: No Hearing needs: No Vision needs: No Questionnaire Thrive Questionnaire Date Thrive assessed: 06/23/24 I am a: Patient What is your living situation today?: I have a steady place to live Within the past 12 months, did the food you bought not last and you didn't have the money to get more?: Never true Within the past 12 months, did you worry whether your food would run out before you got money to buy more?: Never true Do you have trouble paying for medicines?: No Do you have trouble getting transportation to medical appointments?: No Do you have trouble paying your heating and electricity bill?: No Do you have trouble taking care of your child, family member or friend?: No Do you have trouble with day-to-day activities such as bathing, preparing meals, shopping, managing finances, etc.?: No Are you currently unemployed and looking for a job?: No Are you interested in more education?: No Please select the resources that you would like help with: None Currently or been in a relationship where the following occur: No concerns reported THRIVE Score: 0 IVY-7 AMB Questionnaire IVY-7 Date IVY - 7 assessed: 12/15/24 Source: Developed by Drs. Nain Euceda, Valencia Perez, Joao Vogt and colleagues, with an educational bridger from [employer]. Review of Systems Const Denies chills, Denies fatigue, Denies fever(s), Denies headache(s) and Denies weakness ENT Denies dizziness and Denies headache(s) Card Denies dyspnea Resp Denies cough, Denies dyspnea, Denies wheezing and Denies other (shortness of breath) Musc Denies numbness and Denies tingling Neuro Denies dizziness, Denies headache(s), Denies numbness, Denies tingling and Denies weakness Psych Denies anxiety and Denies depression Endo Denies fatigue Aller/Immun Denies wheezing Physical exam (Primary Care) Vital Signs: Last Vital Signs Temp 97.2 F 05/18/25 10:25 Pulse 78 05/18/25 10:25 Resp 15 05/18/25 10:25 BP 102/62 05/18/25 10:25 Pulse Ox 95 05/18/25 10:25 Oxygen Delivery Method Room Air 05/18/25 10:25 BMI result Body Mass Index 30.5 Tobacco/Smoking Status: Tobacco use Status Tobacco use date assessed 05/18/25 05/18/25 10:27 Patient Tobacco Use Status Never used Tobacco 05/18/25 10:25 e-Cigarette/Vaping Use Never Used 05/18/25 10:25 Thrive Assessment: Date of Thrive Assessment Date Thrive assessed 06/23/24 05/18/25 10:18 Currently or been in a relationship where the following occur: No concerns reported Const General: well developed; No acute distress Nutritional Appearance: well nourished Orientation/consciousness: patient oriented x3 HENMT Head: Yes normocephalic and Yes atraumatic Eyes General: appearance normal, both eyes and all related structures Pupils: Equal, round and reactive pupils present EOM: EOMs intact bilaterally Resp Effort & Inspection: normal respiratory effort Neuro General: patient oriented x3 and gait normal Cranial nerves: Yes Equal, round and reactive pupils present Psych Affect: normal affect Results AMB Hemoglobin A1c AMB Hemoglobin A1c 6.7 % Last Edit by Carlie Rosario CMA on 05/18/25 10:30 Coding Level of Care Code Est Pt Level 4 (95673) Diagnoses Shortness of breath R06.02 Diabetes E11.9 Erectile dysfunction N52.9 Assessment & Plan Assessment & Plan (1) Shortness of breath: Code(s): R06.02 - Shortness of breath Category: Medical Plan: Recent stress test and also PFTs with DLCO are all normal. Patient notes that symptoms are not persistent any longer - rather intermittent He would like to hold off on further workup at this time. Could offer echocardiogram if symptoms worsen however he seems to think this may be more of an upper respiratory issue. He will let know if symptoms worsen or resume (2) Diabetes: Code(s): E11.9 - Type 2 diabetes mellitus without complications Category: Medical Plan: A1c shows good control. Goal is less than 7.0% Continue current medication Patient gets regular eye exams and is up-to-date (3) Erectile dysfunction: Code(s): N52.9 - Male erectile dysfunction, unspecified Category: Medical Plan: Patient has complaint of ED He is already on testosterone HRT Check labs Trial sildenafil Orders: Orders UA CC w/rflx Micro + Cult Today Z00.00 - Encounter for general adult medical examination without abnormal findings Testosterone, Free/Total Today N52.9 - Male erectile dysfunction, unspecified AMB Hemoglobin A1c Today E11.9 - Type 2 diabetes mellitus without complications Complete Blood Count Auto Diff Today Z00.00 - Encounter for general adult medical examination without abnormal findings Comprehensive [place]. Panel Fast Today Z00.00 - Encounter for general adult medical examination without abnormal findings Lipid Panel Today Z00.00 - Encounter for general adult medical examination without abnormal findings Prostate Specific Antigen Scr Today Z12.5 - Encounter for screening for malignant neoplasm of prostate Microalbumin, Random (w Creat) Today I10 - Essential (primary) hypertension TSH reflex Free T4 Today Z00.00 - Encounter for general adult medical examination without abnormal findings Medications: New sildenafil administer 30 minutes to 4 hours before activity 50 mg PO DAILY PRN 10 tabs 0RF sexual activity 30 days N52.9 - Male erectile dysfunction, unspecified
[2025-05-18 10:25] VITALS: BP 102/62; PULSE 78; RESP 15; TEMP 36.2; O2SAT 95; BMI 30.5
--- OUTSIDE RECORDS SUMMARY | 2025-05-18 11:35 | XMS_ITS | Clinical Summary ---
Author Organization [facility] Address [address] [place] [address] Phone Care Team Providers Care Automatic Outsole Cutter Name Role Phone Angelo Shepard MD Primary Care Provider [phone] Allergies No known active allergies Medications metFORMIN [...] 03/31/2019, 04/29/2012, Additional history exists COVID-19 VACCINE ( - 2024- season) 2025 08/13/2020, 07/23/2020 RSV VACCINE (1 - 1-dose 75+ series) 08/08/2043 SMOKING STATUS SCREENING (Once After 26 Yrs) [...] current use of insulin BASIC METABOLIC PANEL (BMP) Routine 10/04/2019 8:23 AM EDT Type 2 diabetes mellitus without complication, without long-term current use of insulin from Last 3 Months or Most Recently Relevant to Health Maintenance Results * (ABNORMAL) Hemoglobin A1c (10/04/2019 8:23 AM EDT) HEMOGLOBIN A1C 6.5(H) 4.3 - 5.8 % [facility] Blood 10/04/2019 8:23 AM EDT 10/04/2019 10:07 AM EDT [facility]LOOD BKR ORDERABLES Final R esult Performing Organization Address City/[facility]/ZIP Co de Phone Number [address] [address] * (ABNORMAL) Basic metabolic panel (10/04/2019 8:23 AM EDT) SODIUM 145 133 - 146 mmol/L [facility] CHLORIDE 106 96 - 108 mmol/L [facility] POTASSIUM 5.2(H) 3.3 - 5.1 mmol/L [facility] CO2 28 21 - 35 mmol/L [facility] BUN 18 6 - 19 mg/dL [facility] CREATININE 1.00 0.5 - 1.5 mg/dL [facility] GLUCOSE 143(H) 70 - 99 mg/dL [facility] CALCIUM 9.2 8.4 - 10.3 mg/dL [facility] EGFR 87 >59 mL/min/1.7 3m2 [facility] Comment:If patient is black, multiply result by 1.159. Estimated glomerular filtration rate calculated using the CKD-EPI equation. ANION GAP 16 10 - 20 mmol/L [facility] Blood 10/04/2019 8:23 AM EDT 10/04/2019 10:07 AM EDT [facility] B[facility] BKR ORDERABLES Final R esult Performing Organization Address City/[facility]/ZIP Co de Phone Number [address] [address] from Last 3 Months or Most Recently Relevant to Health Maintenance Insurance [employer]NA [facility] Care Teams Automatic Outsole Cutter Relationship Specialty Start Date End Date Angelo Shepard MD [email or web address] PCP - General Family Medicine 03/17/21 Additional Source Comments The information contained in this document represents components of the legal health record. It is not the complete legal health record.[facility]
--- OUTSIDE RECORDS SUMMARY | 2025-05-18 11:35 | XMS_ITS | Encounter Summary ---
Author Organization [facility] Address [address] [place] [address] Care Team Providers Care Contract Admin Name Role Phone Chuy Vitale MD Primary Care Provider [phone] Reason for Visit * Reason Onset Date Comments PAC Rx Questions 05/26/2022 Encounter Details Date Type Department Care Team ([facility] st Contact Info) Description 05/26/2022 Telephone [facility] [address] [place] [address] Telephone Intake, Staff PAC Rx Questions Social [...] Trulicity ( he leaves for work in [employer] Wednesday) & needs a refill before he leaves. [facility] [address] [facility] Pt can be reached @ [phone] Thank you PAC documented in this encounter Plan of Treatment Not on file documented as of this encounter Visit Diagnoses Diagnosis Type 2 diabetes mellitus without complication, without long-term current use of insulin- Primary documented in this encounter Care Teams Contract Admin Relationship Specialty Start Date End Date Chuy Vitale MD [address] [place] [address] PCP - General Family Medicine 10/19/22 documented as of this encounter
--- OUTSIDE RECORDS SUMMARY | 2025-05-18 11:35 | XMS_ITS | Encounter Summary ---
Author Organization [facility] Address [address] [place] [address] Phone Care Team Providers Care Shift Manager Name Role Phone Angelo Shepard MD Primary Care Provider [phone] Encounter Details Date Type Department Care Team (Late st Contact Info) Description 05/02/2021 Procedure Pass [facility] [address] [place] [address] Social History Tobacco Use Types Packs/Day Years [...] on filedocumented in this encounter Care Teams Shift Manager Relationship Specialty Start Date End Date Angelo Shepard MD [email or web address] PCP - General Family Medicine 03/17/21 documented as of this encounter Additional Source Comments The information contained in this document represents components of the legal health record. It is not the complete legal health record.[facility]
--- OUTSIDE RECORDS SUMMARY | 2025-05-18 11:35 | XMS_ITS | Encounter Summary ---
Author Organization [facility] Address [address] [place] [address] Care Team Providers Care Activated Sludge Operator Name Role Phone Chuy Vitale MD Primary Care Provider [phone] Encounter Details Date Type Department Care Team (Late st Contact Info) Description 01/04/2025 External Result Entry [facility] [address] [place] [address] [phone] Pilot: Neel Mcnally, UPSET WELDING MACHINE OPERATOR Social History Tobacco Use Types Packs/Day Years [...] on file documented as of this encounter Procedures * Due to [place] [employer] law, this organization might not be sharing negative HIV tests. Procedure Name Priority Date/Time Associated Diagnosis Comments HEMOGLOBIN A1C, OUTSIDE LAB Routine 12/02/2024 documented in this encounter Results * Due to [place] [employer] law, this organization might not be sharing negative HIV tests. * (ABNORMAL) Hemoglobin A1c, Outside Lab (12/02/2024) Hemoglobin A1C 17.3(H) % Blood Structure of peripheral vein / Unknown 12/02/2024 us Unknown Provider LAB BLOOD ORDERABLES Final R esult documented in this encounter Visit Diagnoses Not on filedocumented in this encounter Care Teams Activated Sludge Operator Relationship Specialty Start Date End Date Chuy Vitale MD [address] [place] [address] PCP - General Family Medicine 10/19/22 documented as of this encounter
--- OUTSIDE RECORDS SUMMARY | 2025-05-18 11:35 | XMS_ITS | Encounter Summary ---
Author Organization [facility] Address [address] [place] [address] Phone Care Team Providers Care Operator Automated Process Name Role Phone Jarrell Spring MD Primary Care Provider Angelo Shepard MD Primary Care Provider [phone] Encounter Details Date Type Department Care Team (Late st Contact Info) Description 03/03/2021 Procedure Pass [place] Admitting Dept - Virtual Department [address] [place] [address] Social History Tobacco Use Types Packs/Day Years [...] on filedocumented in this encounter Care Teams Operator Automated Process Relationship Specialty Start Date End Date Jarrell Spring MD [address] [place] [address] [email or web address] PCP - General 06/03/17 03/16/21 Angelo Shepard MD [address] [place] [address] PCP - General Family Medicine 03/17/21 documented as of this encounter Additional Source Comments The information contained in this document represents components of the legal health record. It is not the complete legal health record.[facility]
--- OUTSIDE RECORDS SUMMARY | 2025-05-18 11:35 | XMS_ITS | Clinical Summary ---
Author Organization [facility] Address [address] [place] [address] Care Team Providers Care Supply Chain Associate Name Role Phone Chuy Vitale MD Primary Care Provider [phone] Allergies Active Allergy Reactions Criticality Noted Date [...] complication, without long-term current use of insulin Inject 0.75 mL (1 mg total) under [...] 08/25/2024 8:49 AM EDT Plan of Treatment Health Maintenance Due [...] Drivers of Health Flores ual Screening 05/31/2024 Influenza Vaccine (#1) 2024 , 06/04/2023, 03/18/2022, Additional history exists COVID-19 Vaccine ( - 2024-2 6 season) 2025 06/04/2023, 11/06/2022, 03/18/2022, Additional history exists Hemoglobin A1C 03/04/2025 12/02/2024, 07/0 09/2024, 08/25/2024, Additional history exists Urine Microalbumin 08/25/2025 08/25/2024, 1 06/20/2022, 01/26/2022 Ophthalmology Exam 12/04/2025 12/04/2024 DTaP,Tdap,and Td Vaccines (2 - Td or Tdap) 03/07/2028 03/07/2018, 11/05/2006 Procedures * Due to [place] [employer] law, this organization might not be sharing negative HIV tests. Procedure Name Priority Date/Time Associated Diagnosis Comments DIABETES EYE EXAM Routine 12/04/2024 1:45 PM EDT HEMOGLOBIN A1C, OUTSIDE LAB Routine 12/02/2024 MICROALBUMIN, RANDOM URINE WITH CREATININE Routine 08/25/2024 10:16 AM EDT Type 2 diabetes mellitus without complication, without long-term current use of insulin COMPREHENSIVE METABOLIC PANEL, OUTSIDE LAB Routine 02/05/2023 from Last 3 Months or Most Recently Relevant to Health Maintenance Results * Due to [place] [employer] law, this organization might not be sharing [...] Urine <2.0 mg/dL 08/25/2024 12:04 PM EDT [facility] Creatinine, Urine 115 22 - 328 mg/dL 08/25/2024 12:04 PM EDT [facility] Microalb/Creat Ratio, Random Urine 08/25/2024 12:04 PM EDT [facility] Comment: < 1.0 mcg/mgCr Microalbumin Reference Range: Normal <30 mcg/mg Creatinine Microalbuminuria 30-300 mcg/mg Creatinine Clinical Albuminuria >300 mcg/mg Creatinine Reference: ADA Guideline. Diabetes Care. 2004;27 (suppl 1) Urine Voided urine specimen / Unknown Non-Blood Collection / Unknown 08/25/2024 10:16 AM EDT 08/25/2024 11:23 AM EDT us Mitesh Landrum MD LAB URINE ORDERABLES Final Re sult [facility] [address] [place] [address], * Comprehensive Metabolic Panel, Outside Lab (02/05/2023) Sodium 140 mmol/L Potassium 4.0 Creatinine 1.0 mg/dL AST 19 U/L ALT 23 U/L Blood Structure of peripheral vein / Unknown 02/05/2023 us Unknown Provider LAB BLOOD ORDERABLES Final R esult from Last 3 Months or Most Recently Relevant to Health Maintenance Insurance [employer] Care Teams Supply Chain Associate Relationship Specialty Start Date End Date Chuy Vitale MD [address] [place] [address] PCP - General Family Medicine 10/19/22
== END 2025-05-18 10:48 | disposition home or self-care (01) ==
LOC: HO.HMCFM 10:15
PROVIDERS: PCP Family Medicine; Visit Provider Family Medicine
DX: R06.02 Shortness of breath (principal); E11.9 Type 2 diabetes mellitus without complications; N52.9 Male erectile dysfunction, unspecified

== ENCOUNTER 2025-05-18 10:14 | Outpatient (REF) | payer OTHER, SELFPAY ==
--- OUTSIDE RECORDS SUMMARY | 2025-05-18 12:45 | XMS_ITS | Data Portability ---
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 Surgery was discussed as a treatment option. Recovery was discussed, including necessary exercises or physical therapy and protection of WB, as were the particulars of the procedure. Questions were answered. During shared decision-making, the patient has decided to consider proceeding with surgery. Risks of hip arthroplasty were discussed with the patient, including, but not limited to infection, need for further surgery, wear, loosening, stiffness, neurologic or vascular injury, fracture, leg length discrepancy, dislocation, and medical complication. The need for anticoagulants after hospital discharge for clot prevention was discussed. Specifics of the surgery were discussed with the patient. Final choices regarding weight-bearing status, bearing surface, and fixation-type will depend upon intraoperative findings. The patient had questions regarding the various approaches for hip arthroplasty, and they were answered to his satisfaction. Preoperative health optimization was discussed with the patient. If the patient is overweight they understand they have an increased risk of infection and they have been optimized to the best of their ability to minimize their risk. If the patient is diabetic we discussed the importance of appropriate blood sugar control to minimize the risk of wound complications or infection. We will check lab work prior to surgery to ensure the patient s diabetes management is optimized. If the patient uses tobacco products we discussed the increased risk of infection and wound complications with tobacco usage. To that end the patient has agreed to cease tobacco usage 4 weeks prior and 2 weeks after surgery to minimize the risk of complications. If approved, the use of a postoperative collagen dressing to enhance the potential for uncomplicated wound healing will be considered for this patient if they have risk factors for wound healing issues - including obesity, diabetes, nutritional deficiency, renal disease, a history of smoking, complicated wounds, or intraoperative discovery of other soft-tissue risks. Enhanced collagen wound care protocols have been shown to improve wound healing potential and thus reduce post-surgical complications such as dehiscence, ulcers, and skin reactions which may place the patient at risk for a catastrophic complication of infection perioperatively. He will let us know if he would like to proceed. Physical therapy was discussed with the patient as an option, and during shared decision-making, the patient declined. Physical therapy, in my medical opinion, is contraindicated, as the patient has extreme pain with [id number] today and with exercise and activity. Not available 11/13/2024 07:42:03 Plan of Treatment Reminders Order Date Submit Date Provider Last Modified By Organization Details Last Modified Time Details Appointments None record ed. Lab None record ed. Referral None record ed. Procedures None record ed. Surgeries None record ed. Imaging XR, hip + pelvis , unilat eral, 2 or 3 view 025 11/11/19 25 [email or web address] [facility], [address] [place] [address], [id number], 12:28:31 Medication Orders None record ed. Patient TargetsNo targets recorded. Patient Instructions Encounter Date Encounter Id Patient Instructions Last Modified By Organization Details Last Modified Time 11/10/2024 [id number] We are pleased that you have chosen Dr. Haque to evaluate your hip. Should you have further questions regarding your hip or surgery, please call or email our office. Not available 11/12/2024 09:26:50 Reason for Referral None Reported. Results Created Date Observation Date Name Description Value Unit Range Abnormal Flag Note LastModifiedBy Organization Detail LastModifiedTime 11/11/19 25 XR, hip + pelvi s, unila teral , 2 or 3 view No observ ation record ed. INTERFACE [facility] [address], [address], 11/10/2024 10:04:12 Result Notes None recorded. Problems Name Problem SNOMED Code Status Onset Date Resolution Date Notes Provider Name and Address Organization Details Recorded Time Pain of right hip joint 0947771860857 02 Active 2024 [facility] 13:14:00 Osteoarthri tis of right hip joint 6654527300842 07 Active 2024 [facility] 11:05:59 Problem Notes None recorded. Procedures Surgical History Date Name Laterality Status Provider Name and Address Organization Details Recorded Time Knee Surgery completed Muna [facility] - [facility] 11/10/2024 09:48:26 Gallbladder Surgery completed Muna Barrera [facility] 11/10/2024 09:48:26 Imaging Results None recorded. Procedure Notes None recorded. Medical Equipment None Reported. Allergies No known drug allergies Medications Name Sig Start Date Stop Date Status Note LastModified by Organization Details LastModified Time nystatin 100,000 unit/mL oral suspension SWISH AND SWALLOW 5 ML IN THE MORNING, IN THE AFTERNOON , IN THE EVENING, AND AT BEDTIME FOR 14 DAYS. 11/10 completed Not Available Not Available Not Available glipizide ER 5 mg tablet, extended release 24 hr TAKE 1 TABLET BY MOUTH ONCE A DAY active Not Available Not Available No t Available citalopram 20 mg tablet TAKE 1 TABLET BY MOUTH EVERY DAY 11/10 completed Not Available Not Available Not Available tamsulosin 0.4 mg capsule TAKE 1 CAPSULE BY MOUTH EVERY DAY 11/10 completed Not Available Not Available Not Available testosteron e enanthate 200 mg/mL intramuscul ar oil INJECT 0.2 ML INTO THE MUSCLE WEEKLY active Not Available Not Available No t Available testosteron e cypionate 200 mg/mL intramuscul ar oil INJECT 0.5 ML (60 MG) EVERY OTHER WEEK INTRAMUSC ULARLY *SINGLE DOSE VIALS 11/10 completed Not Available Not Available Not Available Jacob Tuberculin Syringe 1 mL 25 gauge x 5/8 ONE A WEEK active Not Available Not Available No t Available Accu-Chek Guide test strips USE TO TEST 3 TIMES DAILY active Not Available Not Available No t Available Accu-Chek Fastclix Lancet Drum USE TO TEST 3 TIMES DAILY active Not Available Not Available No t Available Ozempic 1 mg/dose (4 mg/3 mL) subcutaneou s pen injector INJECT 1 MG (0.75 ML) SUBCUTANE OUSLY EVERY WEEK FOR 28 DAYS active Not Available Not Available No t Available Ozempic 0.25 mg or 0.5 mg (2 mg/3 mL) subcutaneou s pen injector INJECT 0.5 MG SUBCUTANE OUSLY WEEKLY 11/10 completed Not Available Not Available Not Available Vitals Date Recorded Body weight Body mass index (BMI) Body height Provider Name and Address Organization Details Last Updated DateTime 11/10/2024 175410.46 g 32.6 kg/m2 180.34 cm Luc Pearce [place] [facility] 11/10/2024 10:40:26 Social History Question Answer Notes LastModified by Organizat ion Details LastModified Time Tobacco Smoking Status Never Smoker [facility] 11/10/2024 09:48:25 Do You Have An Advance Directive? Yes Information not available 11/10/2024 Who Is Your Employer? [employer] Information not available 11/10/2024 Which Of Your Hands Is Dominant? 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 Live With Others Information not available 11/10/2024 What Was The Date Of Your Most Recent Tobacco Screening? 11/10/2024 Information not available 11/10/2024 What Is Your Relationship Status? Information not available 11/10/2024 Sex: Unknown Functional Status Question Answer Note LastModified by Organizat ion Details LastModified Time Do you use any illicit or recreational drugs? No Information not available 11/10/2024 Do you or have you ever used any other forms of tobacco or nicotine? No Information not available 11/10/2024 What is your level of alcohol consumption? None Information not available 11/10/2024 Are you currently employed? 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 Occasional Information not available 11/10/2024 Mental Status None recorded. Family History Relationship Description Onset Age of this Age Resolved Age Notes LastModified by Organization Details LastModified Time Mother Hypertensive disorder Not available 10/29 09:48:25 Brother Heart disease Not available 10/29 09:48:25 Father Hypertensive disorder Not available 10/29 09:48:25 Father Heart disease Not available 10/29 09:48:25 Medical History Condition Response Diabetes Y Past Encounters Encounter ID Performer Location Encounter Start Date Encounter Closed Date Diagnosis/Indication Diagnosis SNOMED-CT Code Diagnosis ICD10 Code Diagnosis IMO Codes Diagnosis Note [id number] Luis Haque MD [address] [address] 11/10/2024 09:25:09 11/10/2024 12:04:10 Pain of right hip joint 2969150029 37335 M25.551 [id number] 02 Osteoarthr itis of right hip joint 4498395301 17324 M16.11 [id number] Health Concerns Section Related Observation LastModified by Organization Detai ls LastModified Time None Recorded Concern Status LastModified by Organization Details LastModified Time None Recorded Advance Directives Directive Y: Payers Insurance Date Sequence Insurance Name Policy Number Policy Gutierres Covered Member ID Gutierres Member ID Guarantor Name 11/20/2024 1 [employer] (POS II) [id number] Benji Perez [id number] Benji Perez Notes Date Note Type Note Provider Name and Address Organization Details Recorded Time 11/10/2024 text/html 54-year-old gentleman who presents with right hip pain. Symptoms have been present for a year and progressively worsening. Pain is rated 6 out of 10 in severity. Pain is in the groin region. He has pain at night, and pain with initiation of activity and with weightbearing. He complains of a moderate limp and has difficulty with home chores and exercise. He has tried anti-inflammatories , and also underwent cortisone injection. Luis Haque MD [address] [place] [address], [place], [address], [facility] 11/13/2024 07:42:06
[2025-05-18 15:56] LABS: MANUAL DIFF FLAG NO
[2025-05-18 16:03] LABS: Hematocrit 54.5 % (42.0-52.0); Hemoglobin 17.7 g/dl (14.0-18.0); Imm Gran Abs Auto 0.02 X10*3/uL (0.00-0.03); Imm Gran Pct Auto 0.3 % (0.0-0.4); Lymphocytes Absolute Auto 1.8 X10*3/uL (1.2-4.9); Mean Corpuscular HGB Conc 32.5 g/dl (31.0-36.0); Mean Corpuscular Hemoglobin 27.8 pg (27.0-33.0); Mean Corpuscular Volume 85.7 fL (80.0-98.0); NRBC Abs Auto 0.000 X10*3/uL (0.0-0.012); NRBC Pct Auto 0.0 /100WBC (0.0-0.2); Platelet Count 265 X10*3/uL (160-400); Red Blood Count 6.36 X10*6/uL (4.60-5.80); White Blood Count 7.9 X10*3/uL (4.8-10.8)
[2025-05-18 16:07] LABS: Appearance Urine Clear; Glucose Urine UA Negative (Negative); PH 6.5 (5.0-9.0); Specific Gravity - Urine 1.015 (1.005-1.025)
[2025-05-18 17:53] LABS: Alanine Aminotransferase 30 U/L (0-40); Albumin Level 4.6 g/dL (3.5-5.0); Alkaline Phosphatase 102 U/L (39-117); Anion Gap 12 (12-20); Aspartate Amino Transferase 27 U/L (5-37); Blood Urea Nitrogen 21 mg/dL (9-16); Calcium 9.3 mg/dL (8.4-10.2); Carbon Dioxide 25 mmol/L (22-29); Chloride 107 mmol/L (96-108); Cholesterol 142 mg/dL (<200); Estimated Glomerular Filt Rate > 60; HDL Cholesterol 44 mg/dL (>40); Potassium 4.3 mmol/L (3.3-5.1); Sodium 140 mmol/L (135-145); Total Protein 7.0 g/dL (6.5-8.0); Triglycerides 58 mg/dL (<150)
[2025-05-26 20:29] LABS: Testosterone, Free 89.2 pg/mL (35.0-155.0)
== END 2025-05-18 10:15 | disposition home or self-care (01) ==
LOC: HO.WFDLDS 10:14
PROVIDERS: PCP Family Medicine; Visit Provider Family Medicine
DX: Z00.00 Encounter for general adult medical examination without abnormal findings (principal); N52.9 Male erectile dysfunction, unspecified; I10 Essential (primary) hypertension; E11.9 Type 2 diabetes mellitus without complications; Z12.5 Encounter for screening for malignant neoplasm of prostate
CPT/HCPCS: 36415; 80053; 80061; 81003; 82043; 82570; 83036; 84153; 84402; 84403; 84443; 85025